=== PATIENT | female | born 1980 | race Two or more races ===

== ENCOUNTER 2024-08-12 09:48 | Outpatient (AMB) | payer BC, SELFPAY ==
--- NOTE | 2024-08-12 09:52 | A.SPINEOV_ITS ---
Vital Signs 08/12/24 10:03 Height 5 ft 7 in Weight 150 lb BMI 23.5 Intake Visit Reasons: lower back pain/second opinion Intake Note: Ms. White is here today for a Second opinion on her low back pain. 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 Allergies sulfamethoxazole [From Bactrim] Allergy (Severe, Verified 08/12/24 10:03) Hives trimethoprim [From Bactrim] Allergy (Severe, Verified 08/12/24 10:03) Hives Physical Exam Vital Signs: BMI result Body Mass Index 23.5 Assessment & Plan Assessment & Plan (1) Disc disease, degenerative, lumbar or lumbosacral: Code(s): M51.379 - Other intervertebral disc degeneration, lumbosacral region without mention of lumbar back pain or lower extremity pain Category: Medical Qualifiers: Disc-related pain type: discogenic back pain only Qualified Code(s): M51.370 - Other intervertebral disc degeneration, lumbosacral region with discogenic back pain only Plan Dear colleague On 08/12/2024, I saw for 2nd opinion Beata White with a chief complaint of severe low back pain HPI: This 44-year-old female underwent a successful right L5-S1 microdiskectomy on 06/19/2021 that the [facility] for lumbar radiculopathy. She developed new back pain in September of 2023. The pain is located in the lumbosacral area. Initially diclofenac helped to calm the symptoms down. Six months later she developed again an episode of severe low back pain and this time anti-inflammatory drugs were not helping anymore. Then the back pain did not disappear anymore despite any form of medical treatment such as anti-inflammatories or tramadol. She describes the pain as stabbing with any type of movement such as twisting bending or lifting. She denies radiating pain down her legs. She tried high doses of prednisone which gave her relief but after discontinuing that after 6 weeks the pain returned. She did not L5-S1 epidural steroid injection in April of 2024 which have improved her symptoms but the current back pain still is debilitating. 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 She denies numbness or weakness. She tried physical therapy twice but had to discontinue from the pain. She also did acupuncture. PMH: Hysterectomy 07/2022 Medications: Gabapentin, cetirizine, baclofen, Celebrex, hydroxyzine Allergies: Bactrim Social history: . One child. Employed. Nonsmoker. Physical Exam: Height 5'7 weight 150 lb. This pain on palpation over the lumbosacral area. Flexion-extension is restricted and painful. Straight leg raise produces pain in the lower spine. No motor or sensory deficits. Radiological Studies: MRI done at [facility] on 01/27/2024 shows a nearly collapsed L5-S1 disc space with Modic changes. The remainder of the lumbar spine is essentially normal. A CT scan of the lumbar spine of June 2024 shows again a severely collapsed L5-S1 disc space with irregularities of the endplates. Impression/Plan: This patient is suffering from intractable low back pain not responding to conservative measurements as described above. She is at her wits end and is looking for a permanent solution. I think she is an excellent candidate for an anterior lumbar interbody fusion. I described the procedure and expected outcome and she wants to proceed. She scheduled for an laparoscopic appendectomy next week and she already had preoperative clearance done at [facility] and PCP. We will obtain the records. She will have to see our approach surgeon Dr. Harris. She is tentatively scheduled for week of September. Thank you for allowing me to participate in your patients care. total time spent was 50 minutes in counseling ,coordination of plan, personal review of imaging, surgical decision making and subsequent plan Gee Lino MD, PhD Spine Fellowship Trained Neurosurgeon Director, [facility] Coding Level of Care Code New Pt Level 4 (57582) Diagnoses Degeneration of intervertebral disc of lumbosacral region with discogenic back pain M51.370 Disc-related pain type: discogenic back pain only
[2024-08-12 10:03] VITALS: BMI 23.5
--- OUTSIDE RECORDS SUMMARY | 2024-08-12 10:55 | XMS_ITS | Encounter Summary ---
Author Organization [facility] Address [address] [place] [address] Care Team Providers Care Labor And Employment Paralegal Name Role Phone Ron Escobar NP Primary Care Provider [phone]- [phone] Encounter Details Date Type Department Care Team (Late st Contact Info) Description 07/26/2024 [facility] [employer] Message Initial Department [address] [place] [id number] Mychart, Generic Provider [address] [place], [place] [id number] Questionnaire Submission Social History Tobacco Use Types Packs/Day Years Used Date Smoking Tobacco: Never Smokeless Tobacco: Never Comments:Social use Alcohol Use Standard Drinks/Week Comments Not Currently 0 (1 standard drink = 0.6 oz pure alcohol) rare use ~1 glass of wine/month Education Answer Date Recorded What is the highest level of school you have completed or the highest degree you have received? 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 file Not on file documented as of this encounter Plan of Treatment Upcoming Encounters Date Type Department Care Team (Latest Contact Info) Description 08/15/2024 10:00 AM EDT Appointment [facility] [address] [facility] 3rd [place] [address] 08/17/2024 8:15 AM EDT Hospital Encounter [facility] Operating Room [address] [place] [address] David Recinos MD [address] [place] [id number] 08/17/2024 8:15 AM EDT - 08/17/2024 10:55 AM EDT Surgery [facility] Operating Room [address] [place] [address] David Recinos MD [address] [place] [id number] ROBOTIC APPENDECTOMY [[id number] (CPT??)] Scheduled Procedures Name Priority Associated Diagnoses Date/Ti nj ROBOTIC APPENDECTOMY Mucocele of appendix 08/17/2024 8:15 AM EDT REPAIR UMBILICAL HERNIA, INCARCERATED Mucocele of appendix 08/17/2024 8:15 AM EDT documented as of this encounter Visit Diagnoses Not on filedocumented in this encounter Care Teams Labor And Employment Paralegal Relationship Specialty Start Date End Date Ron Escobar NP [address] [place] [address] PCP - General 11/24/23 documented as of this encounter
--- OUTSIDE RECORDS SUMMARY | 2024-08-12 10:55 | XMS_ITS | Encounter Summary ---
Author Organization [facility] Address [address] [place] [address] Care Team Providers Care Dynamite Reclaimer Name Role Phone Ron Escobar NP Primary Care Provider +1- [phone] Encounter Details Date Type Department Care Team (Late st Contact Info) Description 08/01/[address] [facility] [address] [place] [phone] Celina Eduardo, LUX Social History Tobacco Use Types Packs/Day Years Used Date Smoking Tobacco: Never Smokeless Tobacco: Never Comments:Social use Alcohol Use Standard Drinks/Week Comments Not Currently 0 (1 standard drink = 0.6 oz pure alcohol) rare use ~1 glass of wine/year Education Answer Date Recorded What is the [...] 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 file Not on file documented as of this encounter Miscellaneous Notes * Telephone Encounter - Celina Eduardo RN - 08/01/2024 10:00 AM EST PAC completed documented in this encounter Plan of Treatment Upcoming Encounters Date Type Department Care Team (Latest Contact Info) Description 08/15/2024 10:00 AM EDT Appointment [facility] [address] [facility] 3rd [place] [address] 08/17/2024 8:15 AM EDT Hospital Encounter [facility] Operating Room [address] [place] [address] David Recinos MD [address] [place] [address] 08/17/2024 8:15 AM EDT - 08/17/2024 10:55 AM EDT Surgery [facility] Operating Room [address] [place] [address] David Recinos MD [address] [place] [address] ROBOTIC APPENDECTOMY [[id number] (CPT??)] Scheduled Procedures Name Priority Associated Diagnoses Date/Ti me ROBOTIC APPENDECTOMY Mucocele of appendix 08/17/2024 8:15 AM EDT REPAIR UMBILICAL HERNIA, INCARCERATED Mucocele of appendix 08/17/2024 8:15 AM EDT documented as of this encounter Visit Diagnoses Not on filedocumented in this encounter Care Teams Dynamite Reclaimer Relationship Specialty Start Date End Date Ron Escobar NP [address] [place] [address] PCP - General 11/24/23 documented as of this encounter
--- OUTSIDE RECORDS SUMMARY | 2024-08-12 10:55 | XMS_ITS | Encounter Summary ---
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 file Not on file documented as of this encounter Plan of Treatment Upcoming Encounters Date Type Department Care Team (Latest Contact Info) Description 08/15/2024 10:00 AM EDT Appointment [facility] [address] [facility] 3rd [place] [address] 08/17/2024 8:15 AM EDT Hospital Encounter [facility] Operating Room [address] [place] [address] David Recinos MD [address] [place] [phone] 08/17/2024 8:15 AM EDT - 08/17/2024 10:55 AM EDT Surgery [facility] Operating Room [address] [place] [address] David Recinos MD [address] [place] [id number] ROBOTIC APPENDECTOMY [[id number] (CPT??)] Scheduled Procedures Name Priority Associated Diagnoses Date/Ti ky ROBOTIC APPENDECTOMY Mucocele of appendix 08/17/2024 8:15 AM EDT REPAIR UMBILICAL HERNIA, INCARCERATED Mucocele of appendix 08/17/2024 8:15 AM EDT documented as of this encounter Visit Diagnoses Not on filedocumented in this encounter Care Teams Director Equipment Relationship Specialty Start Date End Date Ron Escobar NP [address] [place] [address] PCP - General 11/24/23 documented as of this encounter
--- OUTSIDE RECORDS SUMMARY | 2024-08-12 10:55 | XMS_ITS | Encounter Summary ---
Author Organization [facility] Address [address] [place] [address] Care Team Providers Care Press Tender Smoke Signal Name Role Phone Ron Escobar NP Primary Care Provider [phone] Reason for Visit * Auth/Cert (Routine) Specialty Diagnoses / Procedures Referred By Urmila cuevas Referred To Contact Diagnoses Mucocele of appendix Preopeartive assessment - no prior colonoscopy, has large appendiceal mucocele, request assessment of the remainder of the colon to ensure no synchronous pathology Procedures KS COLONOSCOPY FLX DX W/COLLJ SPEC WHEN PFRMD Colonoscopy, Diagnostic, with Possible Moderate Sedation David Recinos MD [address] [place] [address] Phone: tel: fax: Gricel Pantoja MD [address] [place] [address] Phone: tel: fax: Referral ID Status Reason Start Date Expiration Date Visits Re quested Visits Authorized [id number] 07/29/2024 99 99 Encounter Details Date Type Department Care Team (Latest Contact Info) Description 08/02/2024 1:09 PM EST - 08/02/2024 4:09 PM EST Hospital Encounter [facility] Endoscopy [address] [place] [address] Gricel Pantoja MD [address], [place] [id number] Mucocele of appendix Discharge Disposition: Home or Self Care (01) Social History Tobacco Use Types Packs/Day Years [...] 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 Not on file Not on file documented as of this encounter Last Filed Vital Signs Vital Sign Reading Time Taken Comments Blood Pressure 114/66 08/02/2024 3:35 PM EST Pulse 73 08/02/2024 3:35 PM EST Temperature 36.8 ??C (98.2 ??F) 08/02/2024 3:04 PM ES T Respiratory Rate 16 08/02/2024 3:35 PM EST Oxygen Saturation 100% 08/02/2024 3:35 PM EST Inhaled Oxygen Concentration - - Weight 68 kg (150 lb) 08/02/2024 1:54 PM EST Height 170.2 cm (5' 7 ) 08/02/2024 1:54 PM EST Body Mass Index 23.49 08/02/2024 1:54 PM EST documented in this encounter Medications at Time of Discharge albuterol (PROAIR HFA,VENTOLIN HFA) 90 mcg inhaler ProAir HFA 90 mcg/actuation aerosol inhaler baclofen (LIORESAL) 10 mg tablet Take 10 mg by mouth daily as needed for muscle spasms. celecoxib (CeleBREX) 100 mg capsule Take 1 capsule by mouth 2 times a day. 02/07/2023 cetirizine (ZyrTEC) 10 mg tablet Take 1 tablet every day by oral route. 03/07/2024 cholecalciferol (VITAMIN D3) 1,250 mcg (50,000 unit) capsule Take 50,000 Units by mouth. 05/18/2023 diclofenac (VOLTAREN) 1% gel APPLY 2 GRAM TO THE AFFECTED AREA(S) BY TOPICAL ROUTE 4 TIMES PER DAY diphenhydrAMINE (BENADRYL) 25 mg capsule Take 25 mg by mouth nightly as needed. fluticasone propionate (Flovent HFA) 44 mcg inhaler Flovent HFA 44 mcg/actuation aerosol inhaler gabapentin (NEURONTIN) 400 mg capsule 400 mg. 02/27/2022 hydrOXYzine HCL (ATARAX) 25 mg tablet Take 25 mg by mouth. methylPREDNISolon e (MEDROL DOSEPACK) 4 mg tablet Take 4 mg by mouth. 10/15/2023 multivitamin capsule Take 1 capsule by mouth once a day. sodium sulfate-potassium sulfate-magnesium sulfate (SUPREP) solution 07/29/2024 documented as of this encounter H&P Notes * Gricel Pantoja MD - 08/02/2024 2:26 PM EST Endoscopy History and Physical Beata White is an 44 y.o. female who is here for a(n) colonoscopy at [facility]. The indication for the procedure is preop evaluation for appendix mucoceal. 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 07/20/2019 Sciatica Spinal stenosis Past Surgical History: Procedure Laterality Date BACK SURGERY Jun 2021 CERVIX SURGERY LEEP KS CYSTOURETHROSCOPY N/A 08/04/2022 Procedure: CYSTOURETHROSCOPY; Surgeon: Audrey Orozco MD; Location: [facility] OR; Service: Gynecology KS HYSTEROSCOPY,RMV FB N/A 08/04/2022 Procedure: SURGICAL HYSTEROSCOPY WITH REMOVAL OF IUD; Surgeon: Audrey Orozco MD; Location: [facility] OR; Service: Gynecology [place] LAPAROSCOPY TOT HYSTERECTOMY UTERUS >250 GRAM W TUBE/OVARY N/A 08/04/2022 Procedure: ROBOTIC TOTAL HYSTERECTOMY,LARGE UTERUS,WITH REMOVAL OF TUBES ,CONTAINED EXTRACTION, IUDREMOVAL; Surgeon: Audrey Orozco MD; Location: [facility] OR; Service: Gynecology Medications Prior to Admission Medication Sig Dispense Refill Last Dose/Taking albuterol (PROAIR HFA,VENTOLIN HFA) 90 mcg inhaler ProAir HFA 90 mcg/actuation aerosol inhaler Morethan a month baclofen (LIORESAL) 10 mg tablet Take 10 mg by mouth daily as needed for muscle spasms. 07/31/2024 celecoxib (CeleBREX) 100 mg capsule Take 1 capsule by mouth 2 times a day. 07/29/2024 cetirizine (ZyrTEC) 10 mg tablet Take 1 tablet every day by oral route. 08/01/2024 cholecalciferol (VITAMIN D3) 1,250 mcg (50,000 unit) capsule Take 50,000 Units by mouth. 07/29/2024 diclofenac (VOLTAREN) 1% gel APPLY 2 GRAM TO THE AFFECTED AREA(S) BY TOPICAL ROUTE 4 TIMES PER DAY More than a month diphenhydrAMINE (BENADRYL) 25 mg capsule Take 25 mg by mouth nightly as needed. More than a month fluticasone propionate (Flovent HFA) 44 mcg inhaler Flovent HFA 44 mcg/actuation aerosol inhaler More than a month gabapentin (NEURONTIN) 400 mg capsule 400 mg. 08/01/2024 hydrOXYzine HCL (ATARAX) 25 mg tablet Take 25 mg by mouth. Past Month methylPREDNISolone (MEDROL DOSEPACK) 4 mg tablet Take 4 mg by mouth. multivitamin capsule Take 1 capsule by mouth once a day. 07/29/2024 sodium sulfate-potassium sulfate-magnesium sulfate (SUPREP) solution 08/02/2024 Allergies Allergen Reactions Sulfamethoxazole-Trimethoprim Other (see comments) Objective BP 114/73 (BP Location: Left arm, Patient Position: Lying) Pulse 80 Temp 36.6 ??C (97.9 ??F) Resp 16 Ht 1.702 m (5' 7 ) Wt 68 kg (150 lb) LMP 07/28/2022 (Approximate) SpO2 99% BMI 23.49 kg/m?? Physical Exam Gen: Pleasant, Sitting in stretcher HEENT: normal faces, no scleral icterus Heart: Regular RR Lungs: bilateral chest rise Abd: soft nt nd Skin: non jaundice Neuro: A/0x3, non focal neuro exam Assessment & Plan The patient is appropriate for the scheduled procedure. The risks, benefits and alternatives were discussed with the patient. documented in this encounter Procedure Notes * Gricel Pantoja MD - 08/02/2024 2:22 PM ESTAssociated Order(s): COLONOSCOPY [facility] Gastroenterology Patient Name: Beata White Procedure Date: 08/02/2024 2:22 PM Date of : 1980 Admit Type: Outpatient Age: 44 Room: [place] [address] Gender: Female Note Status: Finalized Attending MD: Gricel Pantoja MD Procedure: Colonoscopy Indications: Abnormal CT of the GI tract Comorbidities Providers: Gricel Pantoja MD Referring MD: David Recinos (Referring MD) Requesting Provider: Medicines: Monitored Anesthesia Care Complications: No immediate complications. Estimated Blood Loss: Estimated blood loss: none. Procedure: Pre-Anesthesia Assessment: - Prior to the procedure, a History and Physical was performed, and patient medications, allergies and sensitivities were reviewed. The patient's tolerance of previous anesthesia was reviewed. - The risks and benefits of the procedure and the sedation options and risks were discussed with the patient. All questions were answered and informed consent was obtained. - Patient identification and proposed procedure were verified prior to the procedure by the physician. The procedure was verified in the pre-procedure area. - Pre-procedure physical examination revealed no contraindications to sedation. - ASA Grade Assessment: II - A patient with mild systemic disease. - After reviewing the risks and benefits, the patient was deemed in satisfactory condition to undergo the procedure. - Monitored anesthesia care under the supervision of an anesthesiologist was determined to be medically necessary for this procedure based on review of the patient's medical history, medications, and prior anesthesia history. After I obtained informed consent, the scope was passed under direct vision. Throughout the procedure, the patient's blood pressure, pulse, and oxygen saturations were monitored continuously. The was introduced through the anus and advanced to the terminal ileum. The colonoscopy was performed with ease. The patient tolerated the procedure well. The quality of the bowel preparation was excellent. The terminal ileum, ileocecal valve, appendiceal orifice, and rectum were photographed. Findings: The perianal and digital rectal examinations were normal. The terminal ileum appeared normal. A submucosal large tumor was found at the appendiceal orifice. No bleeding was present. This was biopsied with a cold forceps for histology. Non-bleeding internal hemorrhoids were found during retroflexion. The hemorrhoids were medium-sized and Grade II (internal hemorrhoids that prolapse but reduce spontaneously). The exam was otherwise without abnormality on direct and retroflexion views. Impression: - The examined portion of the ileum was normal. 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 Biopsied. - Non-bleeding internal hemorrhoids. - The examination was otherwise normal on direct and retroflexion views. Recommendation: - Discharge patient to home. - Await pathology results. - Follow up with Dr Recinos for surgical planning. - If questions or concerns please do not hesitate to call the [facility]. Attending Participation: I personally performed the entire procedure. Gricel Pantoja MD 08/02/2024 3:05:41 PM This report has been signed electronically. Number of Addenda: 0 Note Initiated On: 08/02/2024 2:22 PM documented in this encounter Plan of Treatment Upcoming Encounters Date Type Department Care Team (Latest Contact Info) Description 08/15/2024 10:00 AM EDT Appointment [facility] [address] [place] [address] [address] [place] [address] 08/17/2024 8:15 AM EDT Hospital Encounter [facility] Operating Room [address] [place] [id number] David Recinos MD [address] [place] [id number] 08/17/2024 8:15 AM EDT - 08/17/2024 10:55 AM EDT Surgery [facility] Operating Room [address] [place] [id number] David Recinos MD [address] [place] [id number] ROBOTIC APPENDECTOMY [59966 (CPT??)] Scheduled Procedures Name Priority Associated Diagnoses Date/Ti me ROBOTIC APPENDECTOMY Mucocele of appendix 08/17/2024 8:15 AM EDT REPAIR UMBILICAL HERNIA, INCARCERATED Mucocele of appendix 08/17/2024 8:15 AM EDT documented as of this encounter Procedures * Due to [place] state law, this organization might not be sharing negative HIV tests. Procedure Name Priority Date/Time Associated Diagnosis Comments TISSUE EXAM Routine 08/02/2024 2:50 PM EST Mucocele of appendix KS COLONOSCOPY FLX DX W/COLLJ SPEC WHEN PFRMD 08/02/2024 2:28 PM EST Mucocele of appendix COLONOSCOPY 08/02/2024 documented in this encounter Results * Due to [place] state law, this organization might not be sharing negative HIV tests. * Tissue Exam (08/02/2024 2:50 PM EST) Final Diagnosis Appendix Mass, Biopsy: - Superficial fragments of colonic mucosa, within normal limits, - No evidence of cystic structure, adenomatous change or mass. - Multiple levels were examined. [facility] MANUAL 08/05/2024 12:00 PM EST [facility] at 1200 EST Clinical History Pre-op diagnosis: Preopeartive assessment - no prior colonoscopy, has large appendiceal mucocele, request assessment of the remainder of the colon to ensure no synchronous pathology [facility] MANUAL 08/05/2024 12:00 PM EST [facility] Gross Description 1. Large Intestine, Appendix, APPENDIX MASS BIOPSY The specimen is received in formalin labeled appendix mass biopsy and consists of 0.6 x 0.3 x 0.1 cm of torres tissue fragments which are entirely submitted in cassette 1A. [facility] MANUAL 08/05/2024 12:00 PM EST [facility] Gross Description User Grossing complete by Louis Gray on 08/03/2024 12:02 PM [facility] MANUAL 08/05/2024 12:00 PM EST [facility] Embedded Images [facility] MANUAL 08/05/2024 12:00 PM EST [facility] Resulting Agency Case was signed out at [facility], Department of Pathology, [facility] CLIA [id number] [facility] MANUAL 08/05/2024 12:00 PM EST [facility] Report Header Surgical Pathology Report ? Case: [id number] ? Authorizing Provider: ??Gricel Pantoja MD ?Collected: ? 08/02/2024 1450 ? Ordering Location: ? [facility] ? Received: ?08/03/2024 1046 ? [facility] ? Endoscopy ? Pathologist: ? Matthew Meneses MD ? Specimen: ?Large Intestine, Appendix, APPENDIX MASS BIOPSY ? 08/05/2024 12:00 PM EST [facility] ProVation Case Yes [facility] 08/05/2024 12:00 PM EST [facility] SURGICAL CSN Component [id number] [facility] 08/05/2024 12:00 PM EST [facility] Tissue Appendix structure / Unknown 08/02/2024 2:50 PM EST 08/03/2024 10:46 AM EST Comment:Pre-op diagnosis: Preopeartive assessment - no prior colonoscopy, has large appendiceal mucocele, request assessment of the remainder of the colon to ensure no synchronous pathology Result [facility] Gricel Pantoja MD LAB PATHOLOGY/CYTOLOGY DARLENE JACOBS Final Result [facility] [address] [place] [address], [place] * COLONOSCOPY (08/02/2024) Narrative Procedure Note Gricel Pantoja MD - 08/02/2024 2:22 PM EST [facility] Gastroenterology Patient Name: Beata White Procedure Date: 08/02/2024 2:22 PM Date of : 1980 Admit Type: Outpatient Age: 44 Room: [place] [address] Gender: Female Note Status: Finalized Attending MD: Gricel Pantoja MD Procedure: Colonoscopy Indications: Abnormal CT of the GI tract Comorbidities Providers: Gricel Pantoja MD Referring MD: David Recinos (Referring MD) Requesting Provider: Medicines: Monitored Anesthesia Care Complications: No immediate complications. Estimated Blood Loss: Estimated blood loss: none. Procedure: Pre-Anesthesia Assessment: - Prior to the procedure, a History and Physicalwas performed, and patient medications, allergies and sensitivities were reviewed. The patient'stolerance of previous anesthesia was reviewed. - The risks and benefits of the procedure and the sedation options and risks were discussed with the patient. All questions were answered and informed consent was obtained. - Patient identification and proposed procedurewere verified prior to the procedure by the physician.The procedure was verified in the pre-procedure area. - Pre-procedure physical examination revealed no contraindications to sedation. - ASA Grade Assessment: II - A patient with mild systemic disease. - After reviewing the risks and benefits, thepatient was deemed in satisfactory condition to undergo the procedure. - Monitored anesthesia care under the supervisionof an anesthesiologist was determined to be medically necessary for this procedure based on review of the patient's medical history, medications, and prior anesthesia history. After I obtained informed consent, the scope was passed under direct vision. Throughout theprocedure, the patient's blood pressure, pulse, and oxygen saturations were monitored continuously. The was introduced through the anus and advanced to the terminal ileum. The colonoscopy was performed with ease. The patient tolerated the procedure well. The quality of the bowel preparation was excellent. The terminal ileum, ileocecal valve, appendicealorifice, and rectum were photographed. Findings: The perianal and digital rectal examinations were normal. The terminal ileum appeared normal. A submucosal large tumor was found at the appendiceal orifice. No bleeding was present. This was biopsied with a cold forceps for histology. Non-bleeding internal hemorrhoids were found during retroflexion. The hemorrhoids were medium-sized and Grade II (internal hemorrhoids that prolapse but reduce spontaneously). The exam was otherwise without abnormality on direct and retroflexion views. Impression: - The examined portion of the ileum was normal. - Large submucosal tumor at the appendicealorifice. Biopsied. - Non-bleeding internal hemorrhoids. - The examination was otherwise normal on directand retroflexion views. Recommendation: - Discharge patient to home. - Await pathology results. - Follow up with Dr Recinos for surgicalplanning. - If questions or concerns please do not hesitateto call the [facility]. Attending Participation: I personally performed the entire procedure. Gricel Pantoja MD 08/02/2024 3:05:41 PM This report has been signed electronically. Number of Addenda: 0 Note Initiated On: 08/02/2024 2:22 PM Gricel Pantoja MD PROVATION PROCEDURES Final Result documented in this encounter Visit Diagnoses Diagnosis Mucocele of appendix Other and unspecified diseases of appendix Mucocele of appendix Other and unspecified diseases of appendix documented in this encounter Administered Medications Inactive Administered Medications - up to 3 most recent administrations Medication Order MAR Action Action Date Dose Rate Site sodium chloride 0.9% flush 3-10 mL 3-10 mL, intravenous, PRN Flush, line care, Flush peripheral line with a minimum of 3 mL, before and after use or every 12 hours., Starting on Thu08/02/24 at 1355, Until Thu08/02/24 at 1810, Preprocedure (GI) documented in this encounter Active and Recently Administered Medications Times are shown in EST. PRN Medication Order 07/31/2024 08/01/2024 08/02/2024 sodium chloride 0.9% flush 3-10 mL 3-10 mL, intravenous, PRN Flush, line care, Flush peripheral line with a minimum of 3 mL, before and after use or every 12 hours., Starting on Thu08/02/24 at 1355, Until Thu08/02/24 at 1810, Preprocedure (GI) documented in this encounter Care Teams Press Tender Smoke Signal Relationship Specialty Start Date End Date Ron Escobar NP [address] [facility] [place] [id number] PCP - General 11/24/23 documented as of this encounter
--- OUTSIDE RECORDS SUMMARY | 2024-08-12 10:55 | XMS_ITS | Encounter Summary ---
Author Organization [facility] Address [address] [place] [address] Care Team Providers Care Building Construction Teacher Name Role Phone Ron Escobar NP Primary Care Provider [phone] Reason for Visit * Auth/Cert (Routine) Specialty Diagnoses / Procedures Referred By Urmila cuevas Referred To Contact Diagnoses Mucocele of appendix Preopeartive assessment - no prior colonoscopy, has large appendiceal mucocele, request assessment of the remainder of the colon to ensure no synchronous pathology Procedures NV COLONOSCOPY FLX DX W/COLLJ SPEC WHEN PFRMD Colonoscopy, Diagnostic, with Possible Moderate Sedation David Recinos MD [address] [place] [address] Phone: tel: fax: Gricel Pantoja MD [address] [place] [address] Phone: tel: fax: Referral ID Status Reason Start Date Expiration Date Visits Re quested Visits Authorized [id number] 07/29/2024 99 99 Encounter Details Date Type Department Care Team (Late st Contact Info) Description 08/02/2024 2:27 PM EST Anesthesia Event [facility] [address] [place] [address] Michel Birmingham MD [address] [place] [address] Anesthesia Record Procedure Summary Procedure Name Responsible Anesthesiologist Anesthesia Start Time Anesthesia Stop Time Colonoscopy, Diagnostic, with Possible Moderate Sedation (Anus) Michel Birmingham MD 08/02/24 1427 08/02/24 1503 Events Date Time Event Comment 08/02/2024 1403 1427 An Start 1427 An Start Data 1428 In Room 1442 An Induction The patient was reevaluated immediately before induction of anesthesia. 1442 Anesthesia Ready 1443 Proc Start 1458 Proc Fin 1500 Out of Room 1500 an stop data 1503 Handoff to RN I completed my handoff to the receiving nurse during which we: 1. Identified the patient 2. Identified the responsible provider 3. Reviewed the pertinent medical history 4. Discussed the surgical course 5. Reviewed intra-op anesthesia management and issues during anesthesia 6. Set expectations for post-procedure period 7. Allowed opportunity for questions and acknowledgement of understanding. 1503 An Stop Meds Name Total propofol (DIPRIVAN) 20ML vial 400 mg sodium chloride 0.9% (NS) infusion 0 mL * Agents Name O2 Flow (L/min) * Blood No blood administrations on file. 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 Not on file Not on file documented as of this encounter Last Filed Vital Signs Vital Sign Reading Time Taken Comments Blood Pressure 87/58 08/02/2024 2:57 PM EST Pulse 79 08/02/2024 3:00 PM EST Temperature - - Respiratory Rate 20 08/02/2024 3:00 PM EST Oxygen Saturation 100% 08/02/2024 3:00 PM EST Inhaled Oxygen Concentration - - Weight - - Height - - Body Mass Index - - documented in this encounter OR Notes * Anesthesia Postprocedure Evaluation - Michel Birmingham MD - 08/02/2024 3:34 PM EST Anesthesia Post-procedure Evaluation Patient: Beata White : 1980 Date of Procedure: 08/02/2024 Procedure Summary Date: 08/02/24 Room / Location: [facility] GI [facility] 05 / [facility] Endo Anesthesia Start: 1427 Anesthesia Stop: 1503 Procedure: Colonoscopy, Diagnostic, with Possible Moderate Sedation (Anus) Diagnosis: Mucocele of appendix (Preopeartive assessment - no prior colonoscopy, has large appendiceal mucocele, request assessmentof the remainder of the colon to ensure no synchronous pathology) Surgeons: Gricel Pantoja MD Responsible Provider: Michel Birmingham MD Anesthesia Type: MAC ASA Status: 2 Anesthesia Type: MAC Last vitals Vitals Value Taken Time BP 108/70 08/02/24 1519 Temp 36.8 ??C (98.2 ??F) 08/02/24 1504 Pulse 87 08/02/24 1519 Resp 16 08/02/24 1519 SpO2 100 % 08/02/24 1519 Anesthesia Post Evaluation Patient location during evaluation: PACU Patient participation: complete - patient participated Level of consciousness: awake Pain management: adequate Anesthetic complications: no Nausea and Vomiting: no Cardiovascular status: acceptable Respiratory status: acceptable Hydration status: acceptable No notable events documented. Michel Birmingham MD Date: 08/02/2024 Time: 3:34 PM * Anesthesia Preprocedure Evaluation - Michel Birmingham MD - 08/02/2024 12:07 PM EST Anesthesia Pre-procedure Evaluation Patient: Beata White : 1980 Date of Procedure: 08/02/2024 Preoperative Diagnosis: Pre-op Diagnosis * Mucocele of appendix [K38.8] Colonoscopy, Diagnostic, with Possible Moderate Sedation: 23321 (CPT??) Surgeon(s): Gricel Pantoja MD Past Medical / Past Surgical: Past Medical History: Diagnosis Date Anemia Asthma mild Bilateral piriformis syndrome 02/18/2022 Chronic low back pain 10/06/2016 Chronic pain disorder DDD (degenerative disc disease), lumbar 02/18/2022 Depressive disorder 06/28/2019 Intramural and submucous leiomyoma of uterus 04/17/2021 Lumbar herniated disc Lumbar spondylosis 07/09/2019 Overweight 06/28/2019 PONV (postoperative nausea and vomiting) Positive reaction to tuberculin skin test 07/20/2019 Sciatica Spinal stenosis Past Surgical History: Procedure Laterality Date BACK SURGERY Jun 2021 CERVIX SURGERY LEEP NV CYSTOURETHROSCOPY N/A 08/04/2022 Procedure: CYSTOURETHROSCOPY; Surgeon: Audrey Orozco MD; Location: [facility]; Service: Gynecology NV HYSTEROSCOPY,RMV FB N/A 08/04/2022 Procedure: SURGICAL HYSTEROSCOPY WITH REMOVAL OF IUD; Surgeon: Audrey Orozco MD; Location: [facility]; Service: Gynecology NV LAPAROSCOPY TOT HYSTERECTOMY UTERUS >250 GRAM W TUBE/OVARY N/A 08/04/2022 Procedure: ROBOTIC TOTAL HYSTERECTOMY,LARGE UTERUS,WITH REMOVAL OF TUBES ,CONTAINED EXTRACTION, IUDREMOVAL; Surgeon: Audrey Orozco MD; Location: [facility]; Service: Gynecology Social / Family Histories: Vaping Questions Responses Vaping Use Never User Social History Tobacco Use Smoking status: Never Smokeless tobacco: Never Tobacco comments: Social use Substance Use Topics Alcohol use: Not Currently Comment: rare use ~1 glass of wine/year Social History Substance and Sexual Activity Drug Use Never Family History Adopted: Yes Problem Relation Age of Onset Breast cancer Neg Hx OB History 2 Para 1 Term 1 AB 1 Living 1 SAB IAB 1 Ectopic Multiple Live Births 1 Obstetric Comments S/p hysterectomy for uterine fibroids Pap 2020 negative cotest Prior to Admission medications Medication Sig Start Date End Date Taking? Authorizing Provider albuterol (PROAIR HFA,VENTOLIN HFA) 90 mcg inhaler ProAir HFA 90 mcg/actuation aerosol inhaler Unknown Provider, docusate sodium (COLACE) 100 mg capsule Take 1 capsule (100 mg total) by mouth 2 times a day. 07/17/22 08/16/22 Audrey Orozco MD ergocalciferol (VITAMIN D2) 1,250 mcg (50,000 unit) capsule 11/13/20 Unknown Provider, fluconazole (DIFLUCAN) 150 mg tablet 12/03/21 Unknown Provider, fluticasone propionate (FLONASE) 50 mcg/actuation nasal spray fluticasone propionate 50 mcg/actuation nasal spray,suspension Unknown Provider, fluticasone propionate (Flovent HFA) 44 mcg inhaler Flovent HFA 44 mcg/actuation aerosol inhaler Unknown Provider, gabapentin (NEURONTIN) 100 mg capsule 02/27/22 Unknown Provider, ibuprofen (MOTRIN) 600 mg tablet Take 1 tablet (600 mg total) by mouth every 6 hours as needed for pain (pain). 07/17/22 08/16/22 Audrey Orozco MD montelukast (SINGULAIR) 10 mg tablet 08/02/20 Unknown Provider, omeprazole OTC (PriLOSEC OTC) 20 mg EC tablet Take 1 tablet (20 mg total) by mouth once a day. Take1 tablet by mouth the evening prior to the procedure and then one tablet by mouth the morning of the procedure then daily thereafter. 03/05/21 SARAH Toribio ondansetron (ZOFRAN) 4 mg tablet Take 1 tablet (4 mg total) by mouth every 6 hours as needed for nausea for up to 8 doses. 04/17/21 Yeison Brennan MD polyethylene glycol 3350 (MIRALAX) 17 gram packet Take 1 packet (17 g total) by mouth daily as needed (If no bowel movement in 2 days). Mix powder in 4 to 8 oz of water, juice, coffee, or tea daily as needed for constipation. 04/17/21 Yeison Brennan MD Allergies: Sulfamethoxazole-trimethoprim Vitals / Weight: Last menstrual period 07/28/2022, not currently . Recent Labs: Recent EKG: Patient's Hospital Problems: Patient Active Problem List Diagnosis Intramural and submucous leiomyoma of uterus Asthma Bilateral piriformis syndrome Backache Chronic low back pain Low back pain potentially associated with spinal stenosis DDD (degenerative disc disease), lumbar Decreased hearing Depressive disorder Facet arthritis of lumbar region Arthritis of left sacroiliac joint (HCC) Inflammation of sacroiliac joint (HCC) Lumbar spondylosis Lumbosacral spondylosis without myelopathy Myofascial pain Overweight Positive reaction to tuberculin skin test Recurrent urinary tract infection Sciatica Skin sensation disturbance Verruca vulgaris Uterine leiomyoma Anesthesia Evaluation Patient summary reviewed. Anesthesia History: History of anesthetic complications motion sickness PONV Pulmonary (+) asthma ROS comment: flovent and proair prn last used May. No recent hospitalizations or intubations Cardiovascular Exercise tolerance: good Neuro/Psych Comments: Chronic back pain/sciatia on gabapentin GI/Hepatic/Renal Endo/Other (+) , other hematologic disorders, anemia Infectious Disease Physical Exam Airway Mallampati: II TM distance: >3 FB Neck ROM: full Mouth Opening: good Cardiovascular Rhythm: regular Dental - normal exam Pulmonary Breath sounds clear to auscultation Abdominal Anesthesia Plan ASA 2 Anesthesia Type: MAC 44yo F with appendiceal mucocele presenting for colonoscopy. PMH: asthma (infrequent albuterol use), spinal stenosis No recent URI NPO Pre-Anesthesia Review by Attending Anesthesiologist: Michel Birmingham MD Date: 08/02/2024 Time: 12:08 PM I have interviewed and examined the patient and conducted a pre-anesthesia evaluation that includedreview of the complete medical history, notation of a relevant patient problem list and review of all pertinent preoperative studies, laboratory testing and specialty consultations. An assessment of anesthetic risk including ASA classification and an anesthetic plan have been documented. Original Author: Michel Birmingham MD PSE Chart Review 07/28/22 documented in this encounter Plan of Treatment Upcoming Encounters Date Type Department Care Team (Latest Contact Info) Description 08/15/2024 10:00 AM EDT Appointment [facility] [address] [facility] [address] [place] [address] 08/17/2024 8:15 AM EDT Hospital Encounter [facility] Operating Room [address] [place] [address] David Recinos MD [address] [place] [phone] 08/17/2024 8:15 AM EDT - 08/17/2024 10:55 AM EDT Surgery [facility] Operating Room [address] [place] [address] David Recinos MD [address] [place] [address] ROBOTIC APPENDECTOMY [31547 (CPT??)] Scheduled Procedures Name Priority Associated Diagnoses Date/Ti ks ROBOTIC APPENDECTOMY Mucocele of appendix 08/17/2024 8:15 AM EDT REPAIR UMBILICAL HERNIA, INCARCERATED Mucocele of appendix 08/17/2024 8:15 AM EDT documented as of this encounter Visit Diagnoses Not on filedocumented in this encounter Administered Medications Inactive Administered Medications - up to 3 most recent administrations Medication Order MAR Action Action Date Dose Rate Site propofoL (DIPRIVAN) injection intravenous, As needed, Starting on 08/02/24 at 1442, Until 08/02/24 at 1503, Anesthesia Intra-op Given 08/02/2024 2:53 PM EST 100 mg Given 08/02/2024 2:50 PM EST 100 mg Given 08/02/2024 2:46 PM EST 100 mg sodium chloride 0.9% (NS) premix infusion intravenous, Continuous PRN, Starting on 08/02/24 at 1440, Until 08/02/24 at 1503, Anesthesia Intra-op New Bag/Syringe 08/02/2024 2:40 PM EST documented in this encounter Care Teams Building Construction Teacher Relationship Specialty Start Date End Date Ron Escobar NP [address] [facility] [place] [id number] PCP - General 11/24/23 documented as of this encounter
--- OUTSIDE RECORDS SUMMARY | 2024-08-12 10:55 | XMS_ITS | Encounter Summary ---
Author Organization [facility] Address [address] [place] [address] Care Team Providers Care Steaming Cabinet Tender Name Role Phone Catrina Phan NP Primary Care Provider [phone]- [phone] Reason for Visit * Reason Comments New Patient * Surgical (Routine) - Authorized Specialty Diagnoses / Procedures Referred By Urmila cuevas Referred To Contact Surgical Oncology / General Surgery Diagnoses Mucocele of appendix Audrey Orozco MD [address] [place] [address] Phone: tel: fax: David Recinos MD [address] [place] [address] fax: Referral ID Status Reason Start Date Expiration Date Visits Requested Visits Authorized [id number] Authorized Specialty Services Required 07/25/2024 07/25/2025 6 6 Encounter Details Date Type Department Care Team (Late st Contact Info) Description 07/26/2024 12:15 PM EST Office Visit [facility] [address] [place] [address] Display Mechanic: David Perry MD [address] [place] [address] Mucocele of appendix (Primary Dx) Social History Tobacco Use Types Packs/Day Years Used Date Smoking Tobacco: Never Smokeless Tobacco: Never Tobacco Cessation:Counseling Given: Not Answered Comments:Social use Alcohol Use Standard Drinks/Week Comments [...] 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 on file Not on file documented as of this encounter Last Filed Vital Signs Vital Sign Reading Time Taken Comments Blood Pressure 118/74 07/26/2024 12:20 PM EST Pulse 87 07/26/2024 12:20 PM EST Temperature 36.8 ??C (98.2 ??F) 07/26/2024 12:[address] Respiratory Rate - - Oxygen Saturation 98% 07/26/2024 12:20 PM EST Inhaled Oxygen Concentration - - Weight 69.4 kg (153 lb) 07/26/2024 12:20 PM EST Height 172 cm (5' 7.72 ) 07/26/2024 12:20 PM EST Body Mass Index 23.46 07/26/2024 12:20 PM EST documented in this encounter Progress Notes * David Recinos MD - 07/26/2024 1:09 PM EST Images from the original note were not included. Surgical Oncology Consult History and Physical Exam: Beata White : 1980 CSN: [id number] Referring Provider: AUDREY OROZCO Primary Care Provider: CATRINA PHAN NP Reason for Consultation: Appendiceal mucocele HPI: I the pleasure of meeting with Beata today regarding findings from her recent CT scan obtained for assessment of abdominal and back pain. On a CT from July 12, 2024 she is noted to have a roughly 2.9 x 10 cm cystic structure emanating from the base of the cecum concerning for a mucocele. She also has a small hernia in the region of her umbilicus with a possible collection of mucin at its tip. Beata does note ongoing right lower quadrant discomfort and pressure. She has not had a colonoscopy in the past. She did have a hysterectomy for extensive fibroid disease. She presents today for surgical evaluation. Past Medical History: Diagnosis Date Anemia Asthma Bilateral piriformis syndrome 02/18/2022 Chronic low back pain 10/06/2016 DDD (degenerative disc disease), lumbar 02/18/2022 Depressive disorder 06/28/2019 Intramural and submucous leiomyoma of uterus 04/17/2021 Lumbar herniated disc Lumbar spondylosis 07/09/2019 Overweight 06/28/2019 PONV (postoperative nausea and vomiting) Positive reaction to tuberculin skin test 07/20/2019 Sciatica Spinal stenosis Past Surgical History: Procedure Laterality Date BACK SURGERY Jun 2021 CERVIX SURGERY LEEP NJ CYSTOURETHROSCOPY N/A 08/04/2022 Procedure: CYSTOURETHROSCOPY; Surgeon: Audrey Orozco MD; Location: [facility]; Service: Gynecology NJ HYSTEROSCOPY,RMV FB N/A 08/04/2022 Procedure: SURGICAL HYSTEROSCOPY WITH REMOVAL OF IUD; Surgeon: Audrey Orozco MD; Location: [facility]; Service: Gynecology [place] LAPAROSCOPY TOT HYSTERECTOMY UTERUS >250 GRAM W TUBE/OVARY N/A 08/04/2022 Procedure: ROBOTIC TOTAL HYSTERECTOMY,LARGE UTERUS,WITH REMOVAL OF TUBES ,CONTAINED EXTRACTION, IUDREMOVAL; Surgeon: Audrey Orozco MD; Location: [facility]; Service: Gynecology Current Outpatient Medications: albuterol (PROAIR HFA,VENTOLIN HFA) 90 mcg inhaler, ProAir HFA 90 mcg/actuation aerosol inhaler, Disp: , Rfl: baclofen (LIORESAL) 10 mg tablet, Take 10 mg by mouth daily as needed for muscle spasms., Disp: , Rfl: celecoxib (CeleBREX) 100 mg capsule, Take 1 capsule by mouth 2 times a day., Disp: , Rfl: cholecalciferol (VITAMIN D3) 1,250 mcg (50,000 unit) capsule, Take 50,000 Units by mouth., Disp: , Rfl: diclofenac (VOLTAREN) 1% gel, APPLY 2 GRAM TO THE AFFECTED AREA(S) BY TOPICAL ROUTE 4 TIMES PER DAY, Disp: , Rfl: diphenhydrAMINE (BENADRYL) 25 mg capsule, Take 25 mg by mouth nightly as needed., Disp: , Rfl: fluticasone propionate (Flovent HFA) 44 mcg inhaler, Flovent HFA 44 mcg/actuation aerosol inhaler, Disp: , Rfl: gabapentin (NEURONTIN) 400 mg capsule, 400 mg., Disp: , Rfl: hydrOXYzine HCL (ATARAX) 25 mg tablet, Take 25 mg by mouth., Disp: , Rfl: methylPREDNISolone (MEDROL DOSEPACK) 4 mg tablet, Take 4 mg by mouth., Disp: , Rfl: multivitamin capsule, Take 1 capsule by mouth once a day., Disp: , Rfl: Allergies Allergen Reactions Sulfamethoxazole-Trimethoprim Other (see comments) Social History[1] Family History Adopted: Yes Problem Relation Age of Onset Breast cancer Neg Hx Review of Systems - A complete 10 point ROS was performed and is positive per the HPI, all other systems reviewed and negative. Physical Exam: Vitals: 07/26/24 1220 BP: 118/74 Pulse: 87 Temp: 36.8 ??C (98.2 ??F) SpO2: 98% Physical Exam Physical Exam Constitutional: The patient is oriented to person, place, and time. The patient appears well-developed and well-nourished. Head: Normocephalic and atraumatic. Eyes: Conjunctivae and EOM are normal. No scleral icterus. Neck: No JVD present. Cardiovascular: Normal rate. Pulmonary/Chest: Effort normal and no respiratory distress. Abdominal: Soft. Non-distended Musculoskeletal: Normal range of motion. The patient exhibits no edema. Neurological: The patient is alert and oriented to person, place, and time. Skin: Skin is warm and dry. There is no rash or jaundice. Psychiatric: The patient has a normal mood and affect. Labs: Personally reviewed Latest Ref Rng & Units 07/15/2022 11:23 AM Basic Metabolic Panel Sodium 135 - 145 mmol/L 138 Potassium 3.5 - 5.3 mmol/L 3.9 Chloride 97 - 110 mmol/L 102 Carbon Dioxide 24 - 32 mmol/L 29 Glucose 70 - 99 mg/dL 90 Creatinine 0.50 - 1.20 mg/dL 0.77 Calcium 8.7 - 10.7 mg/dL 9.4 EGFR >=90 mL/min/1.73m2 >90 No data to display Latest Ref Rng & Units 07/15/2022 11:23 AM CBC WBC 4.3 - 10.8 10*3/uL 8.1 Hgb 11.7 - 15.5 g/dL 13.6 Hct 35.0 - 46.0 % 41.2 MCV 80.0 - 100.0 fL 88.1 Plts 140 - 440 10*3/uL 272 Pathology: None available for review. Imaging: Personally reviewed CT A/P from 07/12/24 as noted above. Assessment/Plan: In summary, Beata is a 44-year-old female who presents for surgical evaluation ofan appendiceal mucocele. She and I discussed the nature of the diagnosis and my recommendation to proceed with appendectomy. I think, given the size of the lesion, that this would be best approached with a robotic assisted laparoscopic effort. During that operation I would also reduce the contents of her periumbilical hernia to assess for the presence of extra appendiceal mucin and plan a primarysuture and hernia repair. We discussed the possible pathologies including both benign, premalignant, and overtly malignant processes within the appendix. I stated that appendectomy is the standard pro cedure for diagnosis of this problem and that a high-grade process may necessitate further treatment including completion right colectomy for node staging. We did touch on the possibility of extra appendiceal findings that would necessitate further cytoreductive surgery and/or heated intraperitoneal chemotherapy administration if found. I recommended a lab assessment with tumor markers today. Additionally, I advised that she undergo a colonoscopy preoperatively to ensure there is no additional synchronous pathology within the colon as well as to potentially obtain samples from any lesions visible at the appendiceal orifice. We will look for a day for surgery in the near term once her colonoscopy has been completed. Risks, benefits, and alternatives to surgery including bleeding, infection, margin positive resection, bowel leak, ureteral injury, hernia recurrence, need to convert to an open procedure, and need for repeat procedures were discussed. Apprised of the risks she wishes to proceed as outlined above. I spent a total of 60 minutes on the date of encounter, which included: ?? Preparing to see the patient (e.g., review of test results) ?? Obtaining and/or reviewing separately obtained history ?? Counseling and educating the patient/family/caregiver ?? Referring and communicating with other healthcare professionals, when not separately reported ?? Documenting clinical information in the health record ?? 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 Tobacco Use Smoking status: Never Smokeless tobacco: Never Tobacco comments: Social use Vaping Use Vaping status: Never Used Substance and Sexual Activity Alcohol use: Not Currently Comment: rare use ~1 glass of wine/month Drug use: Never Sexual activity: Defer Partners: Male Other Topics Concern Not on file Social History Narrative 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, 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 Plan of Treatment Upcoming Encounters Date Type Department Care Team (Latest Contact Info) Description 08/15/2024 10:00 AM EDT Appointment [facility] [address] [place] [address] [address] [place] [address] 08/17/2024 8:15 AM EDT Hospital Encounter [facility] Operating Room [address] [place] [address] David Recinos MD [address] [place] [address] 08/17/2024 8:15 AM EDT - 08/17/2024 10:55 AM EDT Surgery [facility] Operating Room [address] [place] [address] David Recinos MD [address] [place] [address] ROBOTIC APPENDECTOMY [33723 (CPT??)] Scheduled Procedures Name Priority Associated Diagnoses Date/Ti ny ROBOTIC APPENDECTOMY Mucocele of appendix 08/17/2024 8:15 AM EDT REPAIR UMBILICAL HERNIA, INCARCERATED Mucocele of appendix 08/17/2024 8:15 AM EDT documented as of this encounter Results * Due to [place] state law, this organization might not be sharing negative HIV tests. * Phosphorus (07/26/2024 1:00 PM EST) Phosphorus 3.3 2.5 - 4.5 mg/dL 07/26/2024 2:24 PM EST [facility] Blood Structure of peripheral vein / Unknown Venipuncture / Unknown 07/26/2024 1:00 PM EST 07/26/2024 1:14 PM EST David Recinos MD LAB BLOOD ORDERABLES Final Result Performing Organization Address City/[facility]/ZIP Co de Phone Number [facility] [employer] [facility] [address] [place] [address], * Magnesium (07/26/2024 1:00 PM EST) MG 2.0 1.6 - 2.4 mg/dL 07/26/2024 2:24 PM EST [facility] Blood Structure of peripheral vein / Unknown Venipuncture / Unknown 07/26/2024 1:00 PM EST 07/26/2024 1:14 PM EST David Recinos MD LAB BLOOD ORDERABLES Final Result Performing Organization Address [facility] Co de Phone Number [facility] [employer] [facility] [address] [place] [address], * CA 19-9 (07/26/2024 1:00 PM EST) CA 19-9 15 <34 U/mL 07/28/2024 9:42 AM EST [employer] [facility] Comment: This test was performed using the Siemens chemiluminescent method. Values obtained from different assay methods cannot be used interchangeably. CA 19-9 levels, regardless of value, should not be interpreted as absolute evidence of the presence or absence of disease. Blood Structure of peripheral vein / Unknown Venipuncture / Unknown 07/26/2024 1:00 PM EST 07/26/2024 1:30 PM EST Luís AYON - 07/28/2024 9:42 AM EST [facility] Received Date:[id number] us David Recinos MD LAB BLOOD ORDERABLES Final Result Performing Organization Address City/[facility]/ZIP Co de Phone Number DEVONTE AYON [address], [address] [place] [address], [place] [phone] [employer] [address], [place] [address], [place] [phone] * CA 125 (07/26/2024 1:00 PM EST) Pathologist [facility] CA 125 10 <35 U/mL 07/27/2024 8:46 AM EST [employer] [facility] Comment: This test was performed using the Siemens Chemiluminescent method. Values obtained from different assay methods cannot be used interchangeably. CA 125 levels, regardless of value, should not be interpreted as absolute evidence of the presence or absence of disease. Blood Structure of peripheral vein / Unknown Venipuncture / Unknown 07/26/2024 1:00 PM EST 07/26/2024 1:29 PM EST [facility]ís [employer] NANY - 07/27/2024 8:46 AM EST [facility] Received Date:[id number] us David Recinos MD LAB BLOOD ORDERABLES Final Result Performing Organization Address [facility] Co de Phone Number DEVONTE AYON [address], [place] [address], [place] [phone] [employer] [facility] [address], [place] [address], [place] [phone] * CEA (07/26/2024 1:00 PM EST) Pathologist [facility] CEA <0.6 <=3.7 ng/mL 07/26/2024 2:25 PM EST [facility] Comment: Smokers Reference Range: ?? <5.5 ng/mL This test was performed using Arian electrochemiluminescence immunoassay method. Values obtained by different assay methods cannot be used interchangeably. Blood Structure of peripheral vein / Unknown Venipuncture / Unknown 07/26/2024 1:00 PM EST 07/26/2024 1:14 PM EST David Recinos MD LAB BLOOD ORDERABLES Final Result [facility] [address] [place] [address], * CBC Auto Differential (07/26/2024 1:00 PM EST) WBC 7.1 3.8 - 10.8 10*3/uL 07/26/2024 1:18 PM EST [facility] RBC 4.19 3.80 - 5.10 10*6/uL 07/26/2024 1:18 PM EST [facility] Hemoglobin 12.6 11.7 - 15.5 g/dL 07/26/2024 1:18 PM EST [facility] Hematocrit 38.2 35.0 - 45.0 % 07/26/2024 1:18 PM EST [facility] MCV 91.2 80.0 - 100.0 fL 07/26/2024 1:18 PM EST [facility] MCH 30.1 27.0 - 33.0 pg 07/26/2024 1:18 PM EST [facility] MCHC 33.0 32.0 - 36.0 g/dL 07/26/2024 1:18 PM EST [facility] RDW 12.4 11.0 - 15.0 % 07/26/2024 1:18 PM EST [facility] Platelets 245 140 - 400 10*3/uL 07/26/2024 1:18 PM EST [facility] MPV 11.3 7.5 - 12.5 fL 07/26/2024 1:18 PM EST [facility] Neutrophil % 65.2 % 07/26/2024 1:18 PM EST [facility] Immature Grans % 0.3 0.0 - 0.9 % 07/26/2024 1:18 PM EST [facility] Lymphocyte % 25.8 % 07/26/2024 1:18 PM EST [facility] Monocyte % 6.7 % 07/26/2024 1:18 PM EST [facility] Eosinophil % 1.3 % 07/26/2024 1:18 PM EST [facility] Basophil % 0.7 % 07/26/2024 1:18 PM EST [facility] Neutrophil # 4.66 1.50 - 7.80 10*3/uL 07/26/2024 1:18 PM EST [facility] Immature Grans # <0.03 <=0.03 10*3/uL 07/26/2024 1:18 PM EST [facility] Lymphocyte # 1.80 0.85 - 3.90 10*3/uL 07/26/2024 1:18 PM EST [facility] Monocyte # 0.50 0.20 - 0.95 10*3/uL 07/26/2024 1:18 PM EST [facility] Eosinophil # 0.10 0.02 - 0.50 10*3/uL 07/26/2024 1:18 PM EST [facility] Basophil # 0.10 0.00 - 0.20 10*3/uL 07/26/2024 1:18 PM EST [facility] nRBC % 0.0 /100 WBCs 07/26/2024 1:18 PM EST [facility] nRBC # <0.01 <0.01 10*3/uL 07/26/2024 1:18 PM EST [facility] Total Neutrophil #, Preliminary 4.66 1.50 - 7.80 10*3/uL 07/26/2024 1:18 PM EST [facility] [employer] Blood Structure of peripheral vein / Unknown Venipuncture / Unknown 07/26/2024 1:00 PM EST 07/26/2024 1:14 PM EST us David Recinos MD LAB BLOOD ORDERABLES Final Result [facility] [employer] [address] [place] [address], * Comprehensive metabolic panel (07/26/2024 1:00 PM EST) NA 140 135 - 145 mmol/L 07/26/2024 2:24 PM EST [facility] K 4.2 3.5 - 5.3 mmol/L 07/26/2024 2:24 PM EST [facility] Cl 103 98 - 107 mmol/L 07/26/2024 2:24 PM EST [facility] CO2 27 22 - 32 mmol/L 07/26/2024 2:24 PM EST [facility] Anion Gap 10 5 - 15 07/26/2024 2:24 PM EST [facility] Glucose 88 65 - 99 mg/dL 07/26/2024 2:24 PM EST [facility] Creatinine 0.77 0.50 - 1.20 mg/dL 07/26/2024 2:24 PM EST [facility] Calcium 9.5 8.6 - 10.5 mg/dL 07/26/2024 2:24 PM EST [facility] Total Protein 6.9 6.0 - 8.0 g/dL 07/26/2024 2:24 PM EST [facility] Albumin 4.3 3.5 - 5.2 g/dL 07/26/2024 2:24 PM EST [facility] Bilirubin, Total 0.3 0.2 - 1.2 mg/dL 07/26/2024 2:24 PM EST [facility] [employer] Alkaline Phosphatase 69 35 - 129 U/L 07/26/2024 2:24 PM EST [facility] [employer] [facility] AST 22 10 - 40 U/L 07/26/2024 2:24 PM EST [facility] ALT 28 10 - 40 U/L 07/26/2024 2:24 PM EST [facility] [employer] BUN 12 7 - 23 mg/dL 07/26/2024 2:24 PM EST [facility] [employer] eGFR >90 >=60 mL/min/1. 73m2 07/26/2024 2:24 PM EST [facility] Comment:The estimated glomer ular filtration rate (eGFR) is calculated using a new formula developed by the NKF-ASN task force to eliminate race-based correction factors. The new formula uses serum/plasma creatinine, age, and gender to determine eGFR. A value below 60mls/min might indicate kidney disease and will be flagged. For additional information, see Sun et al, Am J Kidney Dis. 2021;79(2):268- 288, A Unifying Approach for GFR estimation: Recommendations of the NKF-ASN Task Force on Reassessing the Inclusion of Race in Diagnosing Kidney Disease . Globulin, Total 2.6 2.1 - 4.2 g/dL 07/26/2024 2:24 PM EST [facility]ContestMachineTN [facility] A/G Ratio 1.7 1.5 - 3.0 07/26/2024 2:[address] [facility] [employer] [facility] Blood Structure of peripheral vein / Unknown Venipuncture / Unknown 07/26/2024 1:00 PM EST 07/26/2024 1:14 PM EST us David Recinos MD LAB BLOOD ORDERABLES Final Result [facility] [employer] [facility] [address] [place] [address], documented in this encounter Visit Diagnoses Diagnosis Mucocele of appendix- Primary Other and unspecified diseases of appendix Mucocele of appendix Other and unspecified diseases of appendix documented in this encounter Care Teams Steaming Cabinet Tender Relationship Specialty Start Date End Date Catrina Phan, LARISA [address] [facility] [address] PCP - General 11/24/23 documented as of this encounter
--- OUTSIDE RECORDS SUMMARY | 2024-08-12 10:55 | XMS_ITS | Encounter Summary ---
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 [place] 3rd [place] [address] 08/17/2024 8:15 AM EDT Hospital Encounter [facility] Operating Room [address] [place] [address] David Recinos MD [address] [place] [address] 08/17/2024 8:15 AM EDT - 08/17/2024 10:55 AM EDT Surgery [facility] Operating Room [address] [place] [address] David Recinos MD [address] [place] [address] ROBOTIC APPENDECTOMY [31975 (CPT??)] Scheduled Procedures Name Priority Associated Diagnoses Date/Ti me ROBOTIC APPENDECTOMY Mucocele of appendix 08/17/2024 8:15 AM EDT REPAIR UMBILICAL HERNIA, INCARCERATED Mucocele of appendix 08/17/2024 8:15 AM EDT documented as of this encounter Visit Diagnoses Not on filedocumented in this encounter Care Teams Manager Control Relationship Specialty Start Date End Date Ron Escobar NP [address] [place] [address] PCP - General 11/24/23 documented as of this encounter
--- OUTSIDE RECORDS SUMMARY | 2024-08-12 10:56 | XMS_ITS | Data Portability ---
Author Organization [place] [facility], [facility] Office Address [address] [place] [address] Care Team Providers Care Photographic Engineer Name Role Phone CATRINA PHAN Primary Care Provider Assessment Encounter Date Assessment Date Assessment LastModified by Organization Details LastModified Time 03/04/2024 03/04/2024 Beata is a 43 y/o female who presents today for evaluation of the lumbar spine PSH right L5-S1 MD in [address] Alford which she reports went well but she has dealt with severe low back pain beginning this September SHe describes it as a pressure sensation midline which radiates out towards her lateral hips, she describes severe stabbing pains with certain movements, these are fleeting in nature but are so painful she has been quite apprehensive about movement. On exam today she refuses spinal ROM citing pain, in testing her SI joints she denies any significant increase in pain. Her LE strenth and sensation are intact. Her MRI shows mild diffuse degenerative changes, most notable at L5-S1 where she has end plate changes as well as facet arthrosis. We discussed the difficulty localizing structural sources for neck pain as opposed to leg pain. The latter can generally be attributed to neural compression. Back pain on the other hand could be from structural abnormality like severe disc degeneration or instability, but just as easily could be from diffuse spondylosis which does not lend itself to surgery, or from entirely non-surgical diagnoses such as myofascial pain. Importantly, the presence of focal structural abnormality on MRI does not prove that these cause back pain, so that treating those findings may not address neck pain. We also discussed pain fear inhibition and her fear of movement which I explained can become cyclical and worsen pain. She does her best to try and go without prednisone but is not able to work or function without and her pain would leave her bed bound without it she explained. Ultimately Beata would not tolerate physical therapy at this point. We discussed oral medications including that I suggest she taper off her prednisone. I suspect some of her pain could be related to L5-S1. Having failed conservative treatments and dealing with this debilitating pain for greater than 3 months I would like to trial her with bilateral L5-S1 facet injections. After discussion Beata was in agreement, she will taper off her prednisone in anticipation and we will arrange for facet injections with [facility] radiology, we will see her back approximately 2 weeks after her injections to discuss potential next steps, she had all questions and concerns addressed. [email or web address] Not available 03/08/2024 07:28:15 Plan of Treatment Reminders Order Date Submit Date Provider Last Modified By Organization Details Last Modified Time Details Appointments None recorded. Lab None recorded. Referral None recorded. Procedures facet joint injection, lumbar (PROC) - Bilateral L5-S1 facet injections 2023 024 [facility] ([facility] Scheduling), [address] [place], [address], 09:56:31 Surgeries None recorded. Imaging None recorded. Medication Orders None recorded. Patient TargetsNo targets recorded. Patient InstructionsNo instructions recorded. Reason for Referral None Reported. Results Created Date Observation Date Name Description Value Unit Range Abnormal Flag Note LastModifiedBy Organization Detail LastModifiedTime 02/25/2009/09/2023 MRI, pelvi s, w/wo contr ast No observ ation record ed. [email or web address] Not Available 2023 14:17:23 02/25/20 24 04/15/2023 MRI, sacru m, w/wo contr ast No observ ation record ed. [email or web address] Not Available 2023 14:20:01 Result Notes None recorded. Procedures Surgical History Date Name Laterality Status Provider Name and Address Organization Details Recorded Time Orthopaedic Surgery completed Beatapatrica Barrett [place] [facility] 02/25/2024 14:13:02 Imaging Results Imaging Date Name Status LastModified by Organiz ation Details LastModified Time 09/09/2023 MRI, pelvis, w/wo contrast completed Information not available 02/25/2024 14:17:23 04/15/2023 MRI, sacrum, w/wo contrast completed Information not available 02/25/2024 14:20:01 Procedure Notes None recorded. Medical Equipment None Reported. Allergies Allergen ID Allergen Name Allergen Category Reaction Reaction Severity Criticality Documentation Date Start Date Code Code System Note Provider Name and Address Organization Details Recorded Time [id number] sulfameth oxazole medicatio n Not available Not available Not available 03/04/2024 32469 RxNorm Beata Barrett [facility] 12:47:09 Medications Name Sig Start Date Stop Date Status Note LastModified by Organization Details LastModified Time cyclobenzap rine 10 mg tablet 1 tablet as needed for pain/spas ms Orally TID 03/03 completed Not Available Not Available Not Available hydrocodone 5 mg-acetamin ophen 325 mg tablet 1 -2 tablet as needed Orally every 6 hrs 03/04 completed Not Available Not Available Not Available ondansetron HCl 4 mg tablet 1 tablet Orally BID 03/04 completed Not Available Not Available Not Available gabapentin 400 mg capsule Take 1 capsule 3 times a day by oral route. active Not Available Not Available No t Available methocarbam ol 750 mg tablet Take 1 tablet 3 times a day by oral route as needed, for muscle pain/spas m. 2023 active Not Available Not Available Not Avai lable hydroxyzine HCl 25 mg tablet Take 1 tablet 3 times a day by oral route. active Not Available Not Available No t Available gabapentin 100 mg capsule Take 2 capsules every day by oral route. 2023 active Not Available Not Available Not Avai lable celecoxib 100 mg capsule Take 1 capsule every day by oral route. active Not Available Not Available No t Available Methylpred DP 4 mg tablets in a dose pack Take by oral route. active Not Available Not Available No t Available Vitals Date Recorded Body height Body mass index (BMI) Body weight Provider Name and Address Organization Details Last Updated DateTime 03/04/2024 170.18 cm 23.2 kg/m2 05807.67 g Beata Barrett [facility] 03/04/2024 12:47:05 Social History Question Answer Notes LastModified by Organizat ion Details LastModified Time Tobacco Smoking Status Never Smoker Not Available [facility] 05/08/2022 23:19:34 What Is Your Level Of Alcohol Consumption? None Information not available 03/04/2024 Do You Or Have You Ever Used E-cigarettes Or Vape? 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 Never Used Smokeless Tobacco Information not available 03/04/2024 Sex: Unknown Functional Status None recorded. Mental Status None recorded. Family History Nothing Reported. Medical History Condition Response Osteoarthritis / Rheumatoid arthritis / Other Y Asthma / Shortness of Breath / Sleep Powder Coater ea (please specify) Y Any Other Significant Medical Issues Y Depression or Anxiety Y Gynecological HistoryNo gynecological history recorded. 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 [address], [address] [place] [address] 03/04/2024 12:04:43 03/04/2024 16:02:55 Lumbar spondylosis 387016459 M47.896 Health Concerns Section Related Observation LastModified by Organization Detai ls LastModified Time None Recorded Concern Status LastModified by Organization Details LastModified Time None Recorded Advance Directives Directive None Recorded Payers Encounter Date Sequence Insurance Name Policy Number Policy Ortega Covered Member ID Ortega Member ID Guarantor Name 03/04/2024 1 [place] [facility] [id number] Zaid Paredes [id number] Beata White Notes Date Note Type Note Provider Name and Address Organization Details Recorded Time 03/04/2024 text/html Beata is a 43 y /o female who presents today for evaluation of the lumbar spine She has PSH right L5-S1 MD [place] [address] Alford which she reports went well Today she reports this September 2023 she developed fairly severe pain, she reports a baseline pressure sensation in her low back but pain became excruciating this may described as stabbing pain worse with movement. She reports it can be fleeting or last a few minutes but is 10/10. She localizes it to midline just below her previous incision, she reports it radiates bilaterally off of midline stopping at the midpoint between her spine and hip. She denies any radiation of pain. She reports a longstanding buttocks pain she attributes to an extra spinal source mentioning it has been longstanding. She reports she does experience muscle spasm in that location when laying down. She is also comfortable sitting, essentially stationary she is pain free but movement exacerbates the pain. She is currently on 15mg prednisone, she can tolerate walking but she reports flexion, pelvic rotation and ante/retroversion as well as any squatting or spinal flexion causes severe pain. She also cites valsalva maneuver. She does endorse weakness in the legs, describes the legs as shaky and uses a walker because when pain flares she feels her legs may give out. she reports it is 10/10. In addition to prednisone, which she has been using for the last 5 weeks, she takes 400mg gabapentin QHS which she has been on since her discectomy for sciatic pain No change in bowel/bladder function. No numbness/tingling around her labia or anus region. Chief Complaint: {{ Lumbar pain#}} {{ Beata#}} presents to the office today {{referred by my physician library circulation assistant Ajay Ortega referred by their PCP under worker's compensation for an injury that occured on _}}, {{presenting by themselves* accompani ed with _}}, with complaints of {{back pain* right leg pain left leg pain bilateral lower extremity pain back pain radiating to _ no back pain but complaints of _}}. {{He She*}} {{complains of numbness in_ complains of tingling in_ complains of numbness and tingling in _ complains of burning in _ reports no changes in sensation*}}. {{He She*}} reports these symptoms have been persistent {{since _ for _ months for _ years since July 2023#}}. {{He She*}} reports feeling better with {{standing walking si tting laying down }} and feels worse when {{standing walking si tting laying down }}. {{He She*}} {{denies any complaints of* has complaints of}} {{urinary retention urinary incontinence bowel incontinence urinary retention or incontinence, or bowel incontinence*}}. {{He She*}} {{has* has not}} had prior lumbar spine surgery. Right L5-S1 microdiscectomy with Dr. Alford 2021 The patient reports having tried or not tried the following: TreatmentType/Duratio n Physical Therapy{{Has not tried* Tried for 3 months Tried for 6 months Tried within the past 12 months}} Medications{{Has tried Tylenol Has Tried Tylenol and NSAIDS* Has Tried NSAIDS Has not tried Tylenol or NSAIDS Has tried Tylenol and cannot take NSAIDS because of _ Has tried NSAIDS and cannot take Tylenol because of _}}. {{Has also tried* Has not tried}} {{Gabapentin Lyrica M uscle Relaxers Narcotic Pain Medications any other medications Narcotic Pain Medications, Gabapentin, and Muscle Relaxers#}}. Injections{{Yes, most recent was on_ Yes, has had _ total No Yes, most recent was in 2021#}}. Activity Modifications{{Yes* N o}} Consumer Product Advisor{{Yes No*}} Acupuncture{{Yes No*} } Worst Pain: {{1 2 3 4 5 6 7 8 9 1 0*}}/10. {{He She*}} had a lumbar spine MRI {{with without* with and without}} contrast on {{DATE 01/27/2024}} at {{[facility] OTHERFACILITYNAME}}. Comments: {{ weakness and balance difficulties#}} SARAH LAINEZ [address] [place], [address], [facility] 03/08/2024 07:29:59 OBGyn Episode No OBEpisode recorded.
--- OUTSIDE RECORDS SUMMARY | 2024-08-12 10:56 | XMS_ITS | Patient Health Record ---
Author Organization [facility] Health Services Address [address] [place] [address] Care Team Providers Care Warehouse Packer Name Role Phone LUIS FERNANDO Gregorio Primary Care Provider Unava ilPino Rubio Unavailable [phone] Tino Villeda Unavailable [phone] Arturo Castellon Unavailable [phone] Fredy Allison Unavailable [phone] Allergies No Known Allergies Reason For Referral Reason Please evaluate and treat Diagnosis 1 Acute bilateral low back pain without sciatica (M54.50) Referring Provider First Name Ron Referring Provider Last Name Darline Referred Organization [facility] Referred Provider Fredy Allison Referred Address [address],[place], [place],[address], Referred Provider Specialty Orthopedic S urgery Referral Priority Routine Diagnosis 1 Degeneration of inte rvertebral disc of lumbar region with discogenic back pain (M51.360) Referral Organization [facility] Referring Provider First Name Pino Referring Provider Last Name Kevin Referring Provider Speciality Physical M edicine and Rehab Referred Organization [facility] Referred Provider Pino Brown Referred Address [address],[place], [place],[address],[place] Referred Provider Specialty Physical Med icine and Rehab Referral Priority Routine Reason Evaluate and Treat: L5-S1 MIS TLIF- 07/13/24- [facility] Phone number [phone] Diagnosis 1 Lumbar facet arthrop athy (M47.816) Referral Organization [facility] Charline khan Referring Provider First Name Fredy Referring Provider Last Name Conrad matthews Referring Provider Speciality Orthopedic Surgery Referred Provider Specialty Physical The rapist Referral Priority Routine Medications Medication SIG (Take, Route, Frequency, Duration) Notes Start Date End Date Status Baclofen 10 MG 1 tablet as needed Orally Once a day Active Benadryl Allergy 25 MG 1 tablet at bedtime as needed Orally Once a day As needed Active Celecoxib 100 MG Oral Act kaleb Flovent HFA Active Gabapentin 400 MG 1 capsule Orally Once a day 400 mg and then 100mg mid day also 100mg mid day Active Methocarbamol 750 MG Oral Not-Taking Problems Problem Type SNOMED Code ICD Code Onset Dates Problem Status W/U Status Risk Notes Problem [id number] Other chronic pa in (G89.29) Active confirmed Problem 816244222 Lumbar facet arthropathy (M47.816) Active confirmed Problem [id number] Degeneration of intervertebral disc of lumbar region with discogenic back pain (M51.360) Active confirmed Vital Signs Temperature 97.8 degrees Fahrenheit 07/01/2024 Socrates duarte LPN Oximetry 100 % 05/03/2024 MUNIRA Arredondo Blood pressure diastolic 78 mm Hg 04/12/2024 Titus maki LPN Height 67 in 07/01/2024 CHACHO Salazar Blood pressure systolic 118 mm Hg 04/12/2024 Socrates duarte LPN Weight 150 lbs 07/01/2024 CHACHO Salazar BMI 23.49 kg/m2 07/01/2024 CHACHO Salazar Encounters Encounter Location Date Provider Diagnosis [facility] [address] [place] [address] 04/12/2024 Pino Brown Degeneration of intervertebral disc of lumbar region with discogenic back pain M51.360 ; Lumbar facet arthropathy M47.816 ; Other chronic pain G89.29 and History of microdiscectomy Z98.890 [facility] [address] [place] [address] 03/02/2024 Arturo Castellon [facility] [address] [place] [address] 04/06/2024 Vache Hambardzumyan [facility] [address] [place] [address] 05/04/2024 Vache Hambardzumyan [facility] [address] [place] [address] 05/05/2024 Vache Hambardzumyan [facility] [address] [place] [address] 05/06/2024 Vache Hambardzumyan Lumbar facet arthropathy M47.816 ; Facet arthropathy, lumbosacral M47.817 and Other intervertebral disc degeneration, lumbosacral region with discogenic back pain only M51.370 [facility] [address] [place] [address] 05/10/2024 Vache Hambardzumyan [facility] [address] [place] [address] 05/23/2024 Vache Hambardzumyan [facility] [address] [place] [address] 06/16/2024 Vache Hambardzumyan [facility] [address] [place] [address] 07/01/2024 Vache Hambardzumyan [facility] [address] [place] [address] 07/01/2024 Arturo Castellon [facility] [address] [place] [address] 07/06/2024 Vache Hambardzumyan [facility] [address] [place] [address] 07/15/2024 Vache Hambardzumyan [facility] [address] [place] [address] 05/03/2024 Vache Hambardzumyan Other intervertebral disc degeneration, lumbosacral region with discogenic back pain only M51.370 ; Facet arthropathy, lumbosacral M47.817 and History of discectomy Z98.890 [facility] [address] [place] [address] 07/13/2024 Fredy Allison Other intervertebral disc degeneration, lumbosacral region with discogenic back pain only M51.370 [facility] [address] [place] [address] 07/01/2024 Arturo Castellon Other intervertebral disc degeneration, lumbosacral region with discogenic back pain only M51.370 ; Facet arthropathy, lumbosacral M47.817 and History of discectomy Z98.890 [facility] [address] [place] [address] 04/08/2024 Fredy Prakashmycassie Other intervertebral disc degeneration, lumbar region with discogenic back pain only M51.360 ; Lumbar facet arthropathy M47.816 and History of discectomy Z98.890 Assessments Encounter Date Diagnosis (ICD Code) Assessment Notes Treatment Notes Treatment Clinical Notes Section Notes 04/08/2024 Lumbar facet arthropathy (ICD-10 - M47.816) 43 years old woman seen first time my office complaining of severe low back pain. Pain is significant affecting her quality of life and actives of daily living. She has difficulties ambulating and moving her right lower extremity. She has a history of L5 S1 right laminectomy discectomy due to L5-S1 disc bulge and right radiculopathy. She states that she is not experiencing radicular symptoms after surgery, however she developed severe low back pain which is constant, aggravated even by slightest movement in her right hip and knee. She underwent recent L5-S1 bilateral facet joint injection which significantly improved her pain so she is able to return to her work. Today clinical assessment did not reveal myotomal dermatomal deficiencies, her muscle strength in both lower extremities was limited to the effort due to the pain. MRI review did not reveal central canal stenosis or significant foraminal disease however MRI was significant for multilevel degenerative disc disease and facet arthropathies. I reviewed imaging studies with the patient, explained the pertinent changes, interpreted the results and discussed the implications. I explained and that her pain is predominantly axial, I discussed the possible sources of axial low back pain including discogenic component, facet arthropathies and muscular spasm which most of the time is main contributor. She is also aware that there might be somatization component and anxiety which might be contributing to her current complaints. I reviewed possible treatment options including physical therapy stretching strengthening exercises local steroid injections. Patient already has multiple sessions of physical therapy and taking multiple pain medications for pain control however without significant success. She is looking for holistic approach and possibility of repeat injection to address her condition. I will refer her to my partner at physical medicine and rehabilitation Dr. Brown for his expert assessment and management. I explained that in case if she needs repeat local injection she could be referred to our pain management team also. I had a lengthy discussion about the patient's condition natural history, as well as possible treatment options, alternatives, possible outcomes, and complications. Patient's all questions were answered and more detailed explanations were provided when necessary. The patient demonstrated a good understanding of the treatment plan and agreed with the proposed treatment. I encourage continuing a healthy lifestyle including regular exercises and a healthy diet. This document was generated with the aid of voice recognition software, please be aware there may be inadvertent press room supervisor errors not identified and corrected by the author. If patient develops new or worsening symptoms, increased pain they will reach to our office for appointment and repeat assessment, otherwise I will see them back on as-needed basis. Today spent overall 48 minutes interviewing and examining the patient, ordering imaging studies and reviewing the results, discussing the results with the patient, answering to questions and concerns, developing the treatment plan and producing clinical documentation. 04/08/2024 Other intervertebral disc degeneration, lumbar region with discogenic back pain only (ICD-10 - M51.360) 43 years old woman seen first time my office complaining of severe low back pain. Pain is significant affecting her quality of life and actives of daily living. She has difficulties ambulating and moving her right lower extremity. She has a history of L5 S1 right laminectomy discectomy due to L5-S1 disc bulge and right radiculopathy. She states that she is not experiencing radicular symptoms after surgery, however she developed severe low back pain which is constant, aggravated even by slightest movement in her right hip and knee. She underwent recent L5-S1 bilateral facet joint injection which significantly improved her pain so she is able to return to her work. Today clinical assessment did not reveal myotomal dermatomal deficiencies, her muscle strength in both lower extremities was limited to the effort due to the pain. MRI review did not reveal central canal stenosis or significant foraminal disease however MRI was significant for multilevel degenerative disc disease and facet arthropathies. I reviewed imaging studies with the patient, explained the pertinent changes, interpreted the results and discussed the implications. I explained and that her pain is predominantly axial, I discussed the possible sources of axial low back pain including discogenic component, facet arthropathies and muscular spasm which most of the time is main contributor. She is also aware that there might be somatization component and anxiety which might be contributing to her current complaints. I reviewed possible treatment options including physical therapy stretching strengthening exercises local steroid injections. Patient already has multiple sessions of physical therapy and taking multiple pain medications for pain control however without significant success. She is looking for holistic approach and possibility of repeat injection to address her condition. I will refer her to my partner at physical medicine and rehabilitation Dr. Brown for his expert assessment and management. I explained that in case if she needs repeat local injection she could be referred to our pain management team also. I had a lengthy discussion about the patient's condition natural history, as well as possible treatment options, alternatives, possible outcomes, and complications. Patient's all questions were answered and more detailed explanations were provided when necessary. The patient demonstrated a good understanding of the treatment plan and agreed with the proposed treatment. I encourage continuing a healthy lifestyle including regular exercises and a healthy diet. This document was generated with the aid of voice recognition software, please be aware there may be inadvertent press room supervisor errors not identified and corrected by the author. If patient develops new or worsening symptoms, increased pain they will reach to our office for appointment and repeat assessment, otherwise I will see them back on as-needed basis. Today spent overall 48 minutes interviewing and examining the patient, ordering imaging studies and reviewing the results, discussing the results with the patient, answering to questions and concerns, developing the treatment plan and producing clinical documentation. 04/12/2024 Lumbar facet arthropathy (ICD-10 - M47.816) . . PLAN OF CARE / RECOMMENDATIONS: Today's Date: 04/12/24 by [facility] . LOW BACK - CHRONIC , WORSENING - Intermittent but chronic excruciating pain in buttocks/sacrum. Worse with walking, standing, ex. Stabbing pains in Lumbar - S/P L5-S1 Microdiscectomy 06/09/21 Dr. Rocío Stanton --> resolved the R sciatica of the time . NOTES reviewed to confirm history, physical and findings. - s/p Epidural block on 01/09/21 - s/p Right S1 nerve root block 09/17/21 - S/p cortisone shot L5-S1 Bilateral facet joints 03/29/24 - by surgeon . + response to the LBP/ much less 'stabbing' - MRI Lumbar Spine January 27, 2024 in [facility] - ordered by PCP. Reviewed images. --> MOD/SEVERE DDD L5S1 with Modic change. Mild disc darkening L4-5 and L2-3. No LSS . + facet OA L4-5-1 - s/p [facility] consult 04-08-24. Reviewed PT, INJ, Meds. I spoke to directly . He recalls discussion about ant vs post fusion - ? Why not fusion. Pt has considered all her options and would like to pursue if still a viable option. confirms is willing to see her back to discuss TLIF - RFA ? Discussed. Reviewed Dr Ibarra expertise. Pt is hoping to pursue surg over 'management' with continued/ recurrent injections - SEE SCANNED DRAWINGS: We hand illustrated the involved anatomy and clinical findings with drawings made for the patient and provided to them for their files. A summary of treatment/ eval options was included. A copy was scanned to the EMR as well and an OV summary was printed at the time of discharge. . . LABS: - 10/15/23 Glu 77; Cr 0.80; GFR 92; Hgb 12.4; Hct 38.5; - 08/20/23 Glu 88; Cr 0.76; LFTS nl; GFR 99; hgb 13.4; Hct 43.0 . . PAIN: - gabapentin 400mg @ HS . REC adding STAN 100mg TID - baclofen 5-10mg. REC trial OFF this added med - celexoib 100mg BID . Continue - s/p diclofenac, prednisone taper, tramadol 50mg, prednisone 20mg , methocarbomal, vicodin [she has unused Rx at home] . . 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 . total time of 90 minutes was spent on this visit date reviewing other [facility] conditions chart data, interaction and education with the patient, communicating with others involved, and completing all chart updates and documentation re: changes since last encounter. 04/12/2024 Degeneration of intervertebral disc of lumbar region with discogenic back pain (ICD-10 - M51.360) . . PLAN OF CARE / RECOMMENDATIONS: Today's Date: 04/12/24 by [facility] . LOW BACK - CHRONIC , WORSENING - Intermittent but chronic excruciating pain in buttocks/sacrum. Worse with walking, standing, ex. Stabbing pains in Lumbar - S/P L5-S1 Microdiscectomy 06/09/21 Dr. Rocío Skeltontist --> resolved the R sciatica of the time . NOTES reviewed to confirm history, physical and findings. - s/p Epidural block on 01/09/21 - s/p Right S1 nerve root block 09/17/21 - S/p cortisone shot L5-S1 Bilateral facet joints 03/29/24 - by surgeon . + response to the LBP/ much less 'stabbing' - MRI Lumbar Spine January 27, 2024 in [facility] - ordered by PCP. Reviewed images. --> MOD/SEVERE DDD L5S1 with Modic change. Mild disc darkening L4-5 and L2-3. No LSS . + facet OA L4-5-1 - s/p consult 04-08-24. Reviewed PT, INJ, Meds. I spoke to directly . He recalls discussion about ant vs post fusion - ? Why not fusion. Pt has considered all her options and would like to pursue if still a viable option. confirms is willing to see her back to discuss TLIF - RFA ? Discussed. Reviewed Dr Ibarra expertise. Pt is hoping to pursue surg over 'management' with continued/ recurrent injections - SEE SCANNED DRAWINGS: We hand illustrated the involved anatomy and clinical findings with drawings made for the patient and provided to them for their files. A summary of treatment/ eval options was included. A copy was scanned to the EMR as well and an OV summary was printed at the time of discharge. . . LABS: - 10/15/23 Glu 77; Cr 0.80; GFR 92; Hgb 12.4; Hct 38.5; - 08/20/23 Glu 88; Cr 0.76; LFTS nl; GFR 99; hgb 13.4; Hct 43.0 . . PAIN: - gabapentin 400mg @ HS . REC adding STAN 100mg TID - baclofen 5-10mg. REC trial OFF this added med - celexoib 100mg BID . Continue - s/p diclofenac, prednisone taper, tramadol 50mg, prednisone 20mg , methocarbomal, vicodin [she has unused Rx at home] . . 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 . total time of 90 minutes was spent on this visit date reviewing other [facility] conditions chart data, interaction and education with the patient, communicating with others involved, and completing all chart updates and documentation re: changes since last encounter. 05/03/2024 Facet arthropathy, lumbosacral (ICD-10 - M47.817) 43 years old woman seen for follow-up visit complaining of severe low back pain. Pain is significant affecting her quality of life and actives of daily living. She has difficulties ambulating and moving her right lower extremity. She has a history of L5 S1 right laminectomy discectomy due to L5-S1 disc bulge and right radiculopathy. She states that she is not experiencing radicular symptoms after surgery, however she developed severe low back pain which is constant, aggravated even by slightest movement in her right hip and knee. She underwent recent L5-S1 bilateral facet joint injection which significantly improved her pain so she is able to return to her work. Today clinical assessment did not reveal myotomal dermatomal deficiencies, her muscle strength in both lower extremities was limited to the effort due to the pain. MRI review did not reveal central canal stenosis or significant foraminal disease however MRI was significant for multilevel degenerative disc disease and facet arthropathies predominantly at L5-S1 with Modic type changes. I reviewed imaging studies with the patient, explained the pertinent changes, interpreted the results and discussed the implications. I explained and that her pain is predominantly axial, I discussed the possible sources of axial low back pain including discogenic component, facet arthropathies and muscular spasm. She is also aware that there might be somatization component and anxiety which might be contributing to her current complaints. I reviewed possible treatment options including physical therapy stretching strengthening exercises local steroid injections. Patient already has multiple sessions of physical therapy and taking multiple pain medications for pain control however without significant success. Patient was seen by my partner Dr. Brown physical medicine rehabilitation team and levels I referred her back to me to discuss possible surgical options. Patient states that she is in significant amount of pain, she is feeling frustrated due to the failure of conservative management. She states that the facet joint steroid injections which were helpful initially looks like wearing off. She is looking for ultimate management. I discussed the possibility of L5-S1 fusion as a last resort. I discussed the possibility of anterior approach with L5-S1 ALIF however fully disclosed that I do not have an access surgeon and want to be able to date at [facility]. I also discussed the possibility of MIS L5-S1 TLIF. I discussed all the pros and cons of both approaches. Patient demonstrated with understanding and after lengthy discussion of pros and cons she decided to progress with L5-S1 TLIF. I explained all possible complications outcomes and alternatives of the surgery including but not limited to infection, blood clot formation, pulmonary embolism, postoperative hematoma, transient or permanent nerve injury, spinal fluid leak, need for second surgery, progression of disease at the level above the fusion, hardware failure, prolonged recovery. Patient demonstrated good understanding and agreed to progress with surgery. Will start preoperative optimization process. Will obtain CT scan of the lumbar spine as well as lumbar spine AP lateral flexion-extension x-rays for preoperative planning. I will review her x-rays and CT scan during her preoperative visit. I had a lengthy discussion about the patient's condition natural history, as well as possible treatment options, alternatives, possible outcomes, and complications. Patient's all questions were answered and more detailed explanations were provided when necessary. The patient demonstrated a good understanding of the treatment plan and agreed with the proposed treatment. I encourage continuing a healthy lifestyle including regular exercises and a healthy diet. This document was generated with the aid of voice recognition software, please be aware there may be inadvertent press room supervisor errors not identified and corrected by the author. 05/03/2024 Other intervertebral disc degeneration, lumbosacral region with discogenic back pain only (ICD-10 - M51.370) 43 years old woman seen for follow-up visit complaining of severe low back pain. Pain is significant affecting her quality of life and actives of daily living. She has difficulties ambulating and moving her right lower extremity. She has a history of L5 S1 right laminectomy discectomy due to L5-S1 disc bulge and right radiculopathy. She states that she is not experiencing radicular symptoms after surgery, however she developed severe low back pain which is constant, aggravated even by slightest movement in her right hip and knee. She underwent recent L5-S1 bilateral facet joint injection which significantly improved her pain so she is able to return to her work. Today clinical assessment did not reveal myotomal dermatomal deficiencies, her muscle strength in both lower extremities was limited to the effort due to the pain. MRI review did not reveal central canal stenosis or significant foraminal disease however MRI was significant for multilevel degenerative disc disease and facet arthropathies predominantly at L5-S1 with Modic type changes. I reviewed imaging studies with the patient, explained the pertinent changes, interpreted the results and discussed the implications. I explained and that her pain is predominantly axial, I discussed the possible sources of axial low back pain including discogenic component, facet arthropathies and muscular spasm. She is also aware that there might be somatization component and anxiety which might be contributing to her current complaints. I reviewed possible treatment options including physical therapy stretching strengthening exercises local steroid injections. Patient already has multiple sessions of physical therapy and taking multiple pain medications for pain control however without significant success. Patient was seen by my partner Dr. Brown physical medicine rehabilitation team and levels I referred her back to me to discuss possible surgical options. Patient states that she is in significant amount of pain, she is feeling frustrated due to the failure of conservative management. She states that the facet joint steroid injections which were helpful initially looks like wearing off. She is looking for ultimate management. I discussed the possibility of L5-S1 fusion as a last resort. I discussed the possibility of anterior approach with L5-S1 ALIF however fully disclosed that I do not have an access surgeon and want to be able to date at [facility]. I also discussed the possibility of MIS L5-S1 TLIF. I discussed all the pros and cons of both approaches. Patient demonstrated with understanding and after lengthy discussion of pros and cons she decided to progress with L5-S1 TLIF. I explained all possible complications outcomes and alternatives of the surgery including but not limited to infection, blood clot formation, pulmonary embolism, postoperative hematoma, transient or permanent nerve injury, spinal fluid leak, need for second surgery, progression of disease at the level above the fusion, hardware failure, prolonged recovery. Patient demonstrated good understanding and agreed to progress with surgery. Will start preoperative optimization process. Will obtain CT scan of the lumbar spine as well as lumbar spine AP lateral flexion-extension x-rays for preoperative planning. I will review her x-rays and CT scan during her preoperative visit. I had a lengthy discussion about the patient's condition natural history, as well as possible treatment options, alternatives, possible outcomes, and complications. Patient's all questions were answered and more detailed explanations were provided when necessary. The patient demonstrated a good understanding of the treatment plan and agreed with the proposed treatment. I encourage continuing a healthy lifestyle including regular exercises and a healthy diet. This document was generated with the aid of voice recognition software, please be aware there may be inadvertent press room supervisor errors not identified and corrected by the author. 05/06/2024 Lumbar facet arthropathy (ICD-10 - M47.816) 07/01/2024 Other intervertebral disc degeneration, lumbosacral region with discogenic back pain only (ICD-10 - M51.370) Preoperative symptoms include axial back pain, left greater than right sciatic pain Pre-operative visit-Progression of orthopedic spine condition leading to recommendation for surgical intervention reviewed. -Patient has been evaluated and deemed to have fitting orthopedic spine condition which is candidate for surgical intervention per Dr. Fredy Allison MD.-Previous treatment and progression of of symptoms reviewed. Inadequate pain relief with epidural steroid injection. Current pain management regimen not adequate and not allowing for rehabilitation at this time.-Alternatives to surgical intervention reviewed.-Specific s of planned surgery reviewed in depth, models and pictures were utilized .-Surgical consent reviewed.-Patient wishes to proceed with review of surgical consent.-Pertinent past medical history reviewed. Stable per primary care, low risk. -PCP risk stratification and optimization reviewed. No additional modifiable risk factors identified. Acceptable surgical risk.-Patient home medications reviewed and confirmed. Will discontinue Celebrex 10 days prior to surgery-Preoperati ve health screening reviewed. Outstanding? Imaging-Preoperati ve labs reviewed. Interventions none. -Pending confirmation of MRI, CT prior to date of surgery. Not currently able to review at this time.-Surgical consent reviewed. In-depth review regarding type and purpose of procedure, risks of procedure, possible consequences of the procedure, alternative to this surgical intervention, possible progression of patient's condition if alternatives pursued versus surgery reviewed at length and all questions answered to patient's satisfaction. Possible complications and measures taken to avoid said complications reviewed in depth and all questions answered. These include but are not limited to wound complication, superficial or deep infection, bleeding, hematoma, pain, dural tear, damage to nerve/spinal cord or vascular structures. Potential surgical failure to improve symptoms and may worsen pain was discussed. Anesthesia will review possible side effects or complications of anesthesia in preoperative area day of surgery. Potential for intraoperative and postoperative bleeding which may or may not require transfusion. Written consent for blood products obtained. Potential for postoperative muscle spasm reviewed. Possibility for complication or inadequate relief of symptoms leading to recommendation for revision surgery reviewed. Patient demonstrates good understanding. Patient agrees I have not promised them any definitive outcome or complete resolution of preoperative symptoms. They have asked all of their questions and are satisfied with answers.They will reach out to [facility] with any additional questions or concerns as they arrive both in the preoperative and postoperative window. Upon review patient wishes to continue with surgical option. No consent obtained -Spine infopacket provided for patient review-Shower kit obtained Anticipated Post- operative plan-Chemical VTE prophylaxis: None-Active SAH, active clotting disorder or hypersensitivity to TXA? No, no contraindication to TXA.-Preferred medication for breakthrough pain: Baclofen, minimal opioid, Tylenol-Will require CT and MRI available for review prior to surgery.-Follow-up : Via telephone for progress on receiving imaging studies. Telephone counter created.-Periopera tive rehabilitation discussed, patientis in good understanding. All questions/concerns adressed and reviewed to patient satisfaction. Additional information added where appropriate.-Ravindra aguilera barriers to treatment plan/additional considerations Unable to view MRI, CT in PACS at this time 43 years old woman seen for follow-up visit complaining of severe low back pain. Pain is significant affecting her quality of life and actives of daily living. She has difficulties ambulating and moving her right lower extremity. She has a history of L5 S1 right laminectomy discectomy due to L5-S1 disc bulge and right radiculopathy. She states that she is not experiencing radicular symptoms after surgery, however she developed severe low back pain which is constant, aggravated even by slightest movement in her right hip and knee. She underwent recent L5-S1 bilateral facet joint injection which significantly improved her pain so she is able to return to her work. Today clinical assessment did not reveal myotomal dermatomal deficiencies, her muscle strength in both lower extremities was limited to the effort due to the pain. MRI review did not reveal central canal stenosis or significant foraminal disease however MRI was significant for multilevel degenerative disc disease and facet arthropathies predominantly at L5-S1 with Modic type changes. I reviewed imaging studies with the patient, explained the pertinent changes, interpreted the results and discussed the implications. I explained and that her pain is predominantly axial, I discussed the possible sources of axial low back pain including discogenic component, facet arthropathies and muscular spasm. She is also aware that there might be somatization component and anxiety which might be contributing to her current complaints. I reviewed possible treatment options including physical therapy stretching strengthening exercises local steroid injections. Patient already has multiple sessions of physical therapy and taking multiple pain medications for pain control however without significant success. Patient was seen by my partner Dr. Brown physical medicine rehabilitation team and levels I referred her back to me to discuss possible surgical options. Patient states that she is in significant amount of pain, she is feeling frustrated due to the failure of conservative management. She states that the facet joint steroid injections which were helpful initially looks like wearing off. She is looking for ultimate management. I discussed the possibility of L5-S1 fusion as a last resort. I discussed the possibility of anterior approach with L5-S1 ALIF however fully disclosed that I do not have an access surgeon and want to be able to date at [facility]. I also discussed the possibility of MIS L5-S1 TLIF. I discussed all the pros and cons of both approaches. Patient demonstrated with understanding and after lengthy discussion of pros and cons she decided to progress with L5-S1 TLIF. I explained all possible complications outcomes and alternatives of the surgery including but not limited to infection, blood clot formation, pulmonary embolism, postoperative hematoma, transient or permanent nerve injury, spinal fluid leak, need for second surgery, progression of disease at the level above the fusion, hardware failure, prolonged recovery. Patient demonstrated good understanding and agreed to progress with surgery. Will start preoperative optimization process. Will obtain CT scan of the lumbar spine as well as lumbar spine AP lateral flexion-extension x-rays for preoperative planning. I will review her x-rays and CT scan during her preoperative visit. I had a lengthy discussion about the patient's condition natural history, as well as possible treatment options, alternatives, possible outcomes, and complications. Patient's all questions were answered and more detailed explanations were provided when necessary. The patient demonstrated a good understanding of the treatment plan and agreed with the proposed treatment. I encourage continuing a healthy lifestyle including regular exercises and a healthy diet. This document was generated with the aid of voice recognition software, please be aware there may be inadvertent press room supervisor errors not identified and corrected by the author. 07/13/2024 Other intervertebral disc degeneration, lumbosacral region with discogenic back pain only (ICD-10 - M51.370) Patient presente d today for surgery: L5-S1 MIS TLIF. In the preoperative area while undergoing assessment by anesthesiologist, the patient and anesthesiologist developed misunderstanding on personal level. Attempts to mitigate the situation were not successful. They both felt uncomfortable to continue further doctor-patient relationship. The second anesthesiologist who was assigned to another OR, refused to switch over. For that reason, the case was rescheduled on a later date July 26, 2024. I had a lengthy discussion with the patient about the current situation. Patient was upset, tearful, however demonstrated good understanding and agreed to have a surgery on a later date. The nursing staff and nursing management was present during the entire encounter. 07/01/2024 Facet arthropathy, lumbosacral (ICD-10 - M47.817) 43 years old woman seen for follow-up visit complaining of severe low back pain. Pain is significant affecting her quality of life and actives of daily living. She has difficulties ambulating and moving her right lower extremity. She has a history of L5 S1 right laminectomy discectomy due to L5-S1 disc bulge and right radiculopathy. She states that she is not experiencing radicular symptoms after surgery, however she developed severe low back pain which is constant, aggravated even by slightest movement in her right hip and knee. She underwent recent L5-S1 bilateral facet joint injection which significantly improved her pain so she is able to return to her work. Today clinical assessment did not reveal myotomal dermatomal deficiencies, her muscle strength in both lower extremities was limited to the effort due to the pain. MRI review did not reveal central canal stenosis or significant foraminal disease however MRI was significant for multilevel degenerative disc disease and facet arthropathies predominantly at L5-S1 with Modic type changes. I reviewed imaging studies with the patient, explained the pertinent changes, interpreted the results and discussed the implications. I explained and that her pain is predominantly axial, I discussed the possible sources of axial low back pain including discogenic component, facet arthropathies and muscular spasm. She is also aware that there might be somatization component and anxiety which might be contributing to her current complaints. I reviewed possible treatment options including physical therapy stretching strengthening exercises local steroid injections. Patient already has multiple sessions of physical therapy and taking multiple pain medications for pain control however without significant success. Patient was seen by my partner Dr. Brown physical medicine rehabilitation team and levels I referred her back to me to discuss possible surgical options. Patient states that she is in significant amount of pain, she is feeling frustrated due to the failure of conservative management. She states that the facet joint steroid injections which were helpful initially looks like wearing off. She is looking for ultimate management. I discussed the possibility of L5-S1 fusion as a last resort. I discussed the possibility of anterior approach with L5-S1 ALIF however fully disclosed that I do not have an access surgeon and want to be able to date at [facility]. I also discussed the possibility of MIS L5-S1 TLIF. I discussed all the pros and cons of both approaches. Patient demonstrated with understanding and after lengthy discussion of pros and cons she decided to progress with L5-S1 TLIF. I explained all possible complications outcomes and alternatives of the surgery including but not limited to infection, blood clot formation, pulmonary embolism, postoperative hematoma, transient or permanent nerve injury, spinal fluid leak, need for second surgery, progression of disease at the level above the fusion, hardware failure, prolonged recovery. Patient demonstrated good understanding and agreed to progress with surgery. Will start preoperative optimization process. Will obtain CT scan of the lumbar spine as well as lumbar spine AP lateral flexion-extension x-rays for preoperative planning. I will review her x-rays and CT scan during her preoperative visit. I had a lengthy discussion about the patient's condition natural history, as well as possible treatment options, alternatives, possible outcomes, and complications. Patient's all questions were answered and more detailed explanations were provided when necessary. The patient demonstrated a good understanding of the treatment plan and agreed with the proposed treatment. I encourage continuing a healthy lifestyle including regular exercises and a healthy diet. This document was generated with the aid of voice recognition software, please be aware there may be inadvertent press room supervisor errors not identified and corrected by the author. 05/06/2024 Facet arthropathy, lumbosacral (ICD-10 - M47.817) 05/03/2024 History of discectomy (ICD-10 - Z98.890) 43 years old woman seen for follow-up visit complaining of severe low back pain. Pain is significant affecting her quality of life and actives of daily living. She has difficulties ambulating and moving her right lower extremity. She has a history of L5 S1 right laminectomy discectomy due to L5-S1 disc bulge and right radiculopathy. She states that she is not experiencing radicular symptoms after surgery, however she developed severe low back pain which is constant, aggravated even by slightest movement in her right hip and knee. She underwent recent L5-S1 bilateral facet joint injection which significantly improved her pain so she is able to return to her work. Today clinical assessment did not reveal myotomal dermatomal deficiencies, her muscle strength in both lower extremities was limited to the effort due to the pain. MRI review did not reveal central canal stenosis or significant foraminal disease however MRI was significant for multilevel degenerative disc disease and facet arthropathies predominantly at L5-S1 with Modic type changes. I reviewed imaging studies with the patient, explained the pertinent changes, interpreted the results and discussed the implications. I explained and that her pain is predominantly axial, I discussed the possible sources of axial low back pain including discogenic component, facet arthropathies and muscular spasm. She is also aware that there might be somatization component and anxiety which might be contributing to her current complaints. I reviewed possible treatment options including physical therapy stretching strengthening exercises local steroid injections. Patient already has multiple sessions of physical therapy and taking multiple pain medications for pain control however without significant success. Patient was seen by my partner Dr. Brown physical medicine rehabilitation team and levels I referred her back to me to discuss possible surgical options. Patient states that she is in significant amount of pain, she is feeling frustrated due to the failure of conservative management. She states that the facet joint steroid injections which were helpful initially looks like wearing off. She is looking for ultimate management. I discussed the possibility of L5-S1 fusion as a last resort. I discussed the possibility of anterior approach with L5-S1 ALIF however fully disclosed that I do not have an access surgeon and want to be able to date at [facility]. I also discussed the possibility of MIS L5-S1 TLIF. I discussed all the pros and cons of both approaches. Patient demonstrated with understanding and after lengthy discussion of pros and cons she decided to progress with L5-S1 TLIF. I explained all possible complications outcomes and alternatives of the surgery including but not limited to infection, blood clot formation, pulmonary embolism, postoperative hematoma, transient or permanent nerve injury, spinal fluid leak, need for second surgery, progression of disease at the level above the fusion, hardware failure, prolonged recovery. Patient demonstrated good understanding and agreed to progress with surgery. Will start preoperative optimization process. Will obtain CT scan of the lumbar spine as well as lumbar spine AP lateral flexion-extension x-rays for preoperative planning. I will review her x-rays and CT scan during her preoperative visit. I had a lengthy discussion about the patient's condition natural history, as well as possible treatment options, alternatives, possible outcomes, and complications. Patient's all questions were answered and more detailed explanations were provided when necessary. The patient demonstrated a good understanding of the treatment plan and agreed with the proposed treatment. I encourage continuing a healthy lifestyle including regular exercises and a healthy diet. This document was generated with the aid of voice recognition software, please be aware there may be inadvertent press room supervisor errors not identified and corrected by the author. 04/12/2024 Other chronic pain (ICD-10 - G89.29) . . PLAN OF CARE / RECOMMENDATIONS: Today's Date: 04/12/24 by [facility] . LOW BACK - CHRONIC , WORSENING - Intermittent but chronic excruciating pain in buttocks/sacrum. Worse with walking, standing, ex. Stabbing pains in Lumbar - S/P L5-S1 Microdiscectomy 06/09/21 Dr. Rocío Stanton --> resolved the R sciatica of the time . NOTES reviewed to confirm history, physical and findings. - s/p Epidural block on 01/09/21 - s/p Right S1 nerve root block 09/17/21 - S/p cortisone shot L5-S1 Bilateral facet joints 03/29/24 - by surgeon . + response to the LBP/ much less 'stabbing' - MRI Lumbar Spine January 27, 2024 in [facility] - ordered by PCP. Reviewed images. --> MOD/SEVERE DDD L5S1 with Modic change. Mild disc darkening L4-5 and L2-3. No LSS . + facet OA L4-5-1 - s/p consult 04-08-24. Reviewed PT, INJ, Meds. I spoke to directly . He recalls discussion about ant vs post fusion - ? Why not fusion. Pt has considered all her options and would like to pursue if still a viable option. confirms is willing to see her back to discuss TLIF - RFA ? Discussed. Reviewed Dr Ibarra expertise. Pt is hoping to pursue surg over 'management' with continued/ recurrent injections - SEE SCANNED DRAWINGS: We hand illustrated the involved anatomy and clinical findings with drawings made for the patient and provided to them for their files. A summary of treatment/ eval options was included. A copy was scanned to the EMR as well and an OV summary was printed at the time of discharge. . . LABS: - 10/15/23 Glu 77; Cr 0.80; GFR 92; Hgb 12.4; Hct 38.5; - 08/20/23 Glu 88; Cr 0.76; LFTS nl; GFR 99; hgb 13.4; Hct 43.0 . . PAIN: - gabapentin 400mg @ HS . REC adding STAN 100mg TID - baclofen 5-10mg. REC trial OFF this added med - celexoib 100mg BID . Continue - s/p diclofenac, prednisone taper, tramadol 50mg, prednisone 20mg , methocarbomal, vicodin [she has unused Rx at home] . . 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 . total time of 90 minutes was spent on this visit date reviewing other [facility] conditions chart data, interaction and education with the patient, communicating with others involved, and completing all chart updates and documentation re: changes since last encounter. 04/08/2024 History of discectomy (ICD-10 - Z98.890) 43 years old woman seen first time my office complaining of severe low back pain. Pain is significant affecting her quality of life and actives of daily living. She has difficulties ambulating and moving her right lower extremity. She has a history of L5 S1 right laminectomy discectomy due to L5-S1 disc bulge and right radiculopathy. She states that she is not experiencing radicular symptoms after surgery, however she developed severe low back pain which is constant, aggravated even by slightest movement in her right hip and knee. She underwent recent L5-S1 bilateral facet joint injection which significantly improved her pain so she is able to return to her work. Today clinical assessment did not reveal myotomal dermatomal deficiencies, her muscle strength in both lower extremities was limited to the effort due to the pain. MRI review did not reveal central canal stenosis or significant foraminal disease however MRI was significant for multilevel degenerative disc disease and facet arthropathies. I reviewed imaging studies with the patient, explained the pertinent changes, interpreted the results and discussed the implications. I explained and that her pain is predominantly axial, I discussed the possible sources of axial low back pain including discogenic component, facet arthropathies and muscular spasm which most of the time is main contributor. She is also aware that there might be somatization component and anxiety which might be contributing to her current complaints. I reviewed possible treatment options including physical therapy stretching strengthening exercises local steroid injections. Patient already has multiple sessions of physical therapy and taking multiple pain medications for pain control however without significant success. She is looking for holistic approach and possibility of repeat injection to address her condition. I will refer her to my partner at physical medicine and rehabilitation Dr. Brown for his expert assessment and management. I explained that in case if she needs repeat local injection she could be referred to our pain management team also. I had a lengthy discussion about the patient's condition natural history, as well as possible treatment options, alternatives, possible outcomes, and complications. Patient's all questions were answered and more detailed explanations were provided when necessary. The patient demonstrated a good understanding of the treatment plan and agreed with the proposed treatment. I encourage continuing a healthy lifestyle including regular exercises and a healthy diet. This document was generated with the aid of voice recognition software, please be aware there may be inadvertent press room supervisor errors not identified and corrected by the author. If patient develops new or worsening symptoms, increased pain they will reach to our office for appointment and repeat assessment, otherwise I will see them back on as-needed basis. Today spent overall 48 minutes interviewing and examining the patient, ordering imaging studies and reviewing the results, discussing the results with the patient, answering to questions and concerns, developing the treatment plan and producing clinical documentation. 04/12/2024 History of microdiscectomy (ICD-10 - Z98.890) . . PLAN OF CARE / RECOMMENDATIONS: Today's Date: 04/12/24 by [facility] . LOW BACK - CHRONIC , WORSENING - Intermittent but chronic excruciating pain in buttocks/sacrum. Worse with walking, standing, ex. Stabbing pains in Lumbar - S/P L5-S1 Microdiscectomy 06/09/21 Dr. Rocío Stanton --> resolved the R sciatica of the time . NOTES reviewed to confirm history, physical and findings. - s/p Epidural block on 01/09/21 - s/p Right S1 nerve root block 09/17/21 - S/p cortisone shot L5-S1 Bilateral facet joints 03/29/24 - by surgeon . + response to the LBP/ much less 'stabbing' - MRI Lumbar Spine January 27, 2024 in [facility] - ordered by PCP. Reviewed images. --> MOD/SEVERE DDD L5S1 with Modic change. Mild disc darkening L4-5 and L2-3. No LSS . + facet OA L4-5-1 - s/p VH consult 04-08-24. Reviewed PT, INJ, Meds. I spoke to directly . He recalls discussion about ant vs post fusion - ? Why not fusion. Pt has considered all her options and would like to pursue if still a viable option. confirms is willing to see her back to discuss TLIF - RFA ? Discussed. Reviewed Dr Ibarra expertise. Pt is hoping to pursue surg over 'management' with continued/ recurrent injections - SEE SCANNED DRAWINGS: We hand illustrated the involved anatomy and clinical findings with drawings made for the patient and provided to them for their files. A summary of treatment/ eval options was included. A copy was scanned to the EMR as well and an OV summary was printed at the time of discharge. . . LABS: - 10/15/23 Glu 77; Cr 0.80; GFR 92; Hgb 12.4; Hct 38.5; - 08/20/23 Glu 88; Cr 0.76; LFTS nl; GFR 99; hgb 13.4; Hct 43.0 . . PAIN: - gabapentin 400mg @ HS . REC adding STAN 100mg TID - baclofen 5-10mg. REC trial OFF this added med - celexoib 100mg BID . Continue - s/p diclofenac, prednisone taper, tramadol 50mg, prednisone 20mg , methocarbomal, vicodin [she has unused Rx at home] . . 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 . total time of 90 minutes was spent on this visit date reviewing other [facility] conditions chart data, interaction and education with the patient, communicating with others involved, and completing all chart updates and documentation re: changes since last encounter. 05/06/2024 Other intervertebral disc degeneration, lumbosacral region with discogenic back pain only (ICD-10 - M51.370) 07/01/2024 History of discectomy (ICD-10 - Z98.890) 43 years old woman seen for follow-up visit complaining of severe low back pain. Pain is significant affecting her quality of life and actives of daily living. She has difficulties ambulating and moving her right lower extremity. She has a history of L5 S1 right laminectomy discectomy due to L5-S1 disc bulge and right radiculopathy. She states that she is not experiencing radicular symptoms after surgery, however she developed severe low back pain which is constant, aggravated even by slightest movement in her right hip and knee. She underwent recent L5-S1 bilateral facet joint injection which significantly improved her pain so she is able to return to her work. Today clinical assessment did not reveal myotomal dermatomal deficiencies, her muscle strength in both lower extremities was limited to the effort due to the pain. MRI review did not reveal central canal stenosis or significant foraminal disease however MRI was significant for multilevel degenerative disc disease and facet arthropathies predominantly at L5-S1 with Modic type changes. I reviewed imaging studies with the patient, explained the pertinent changes, interpreted the results and discussed the implications. I explained and that her pain is predominantly axial, I discussed the possible sources of axial low back pain including discogenic component, facet arthropathies and muscular spasm. She is also aware that there might be somatization component and anxiety which might be contributing to her current complaints. I reviewed possible treatment options including physical therapy stretching strengthening exercises local steroid injections. Patient already has multiple sessions of physical therapy and taking multiple pain medications for pain control however without significant success. Patient was seen by my partner Dr. Brown physical medicine rehabilitation team and levels I referred her back to me to discuss possible surgical options. Patient states that she is in significant amount of pain, she is feeling frustrated due to the failure of conservative management. She states that the facet joint steroid injections which were helpful initially looks like wearing off. She is looking for ultimate management. I discussed the possibility of L5-S1 fusion as a last resort. I discussed the possibility of anterior approach with L5-S1 ALIF however fully disclosed that I do not have an access surgeon and want to be able to date at [facility]. I also discussed the possibility of MIS L5-S1 TLIF. I discussed all the pros and cons of both approaches. Patient demonstrated with understanding and after lengthy discussion of pros and cons she decided to progress with L5-S1 TLIF. I explained all possible complications outcomes and alternatives of the surgery including but not limited to infection, blood clot formation, pulmonary embolism, postoperative hematoma, transient or permanent nerve injury, spinal fluid leak, need for second surgery, progression of disease at the level above the fusion, hardware failure, prolonged recovery. Patient demonstrated good understanding and agreed to progress with surgery. Will start preoperative optimization process. Will obtain CT scan of the lumbar spine as well as lumbar spine AP lateral flexion-extension x-rays for preoperative planning. I will review her x-rays and CT scan during her preoperative visit. I had a lengthy discussion about the patient's condition natural history, as well as possible treatment options, alternatives, possible outcomes, and complications. Patient's all questions were answered and more detailed explanations were provided when necessary. The patient demonstrated a good understanding of the treatment plan and agreed with the proposed treatment. I encourage continuing a healthy lifestyle including regular exercises and a healthy diet. This document was generated with the aid of voice recognition software, please be aware there may be inadvertent press room supervisor errors not identified and corrected by the author. Plan Of Treatment No Information Insurance Providers Payer Name Payer Address Payer Phone Subscriber Number Group Number Insured Name Patient Relationship to Insured Coverage Start Date Coverage End Date [employer] HMO [address] [place] [address] [phone] [id number] Beata White Self - patient is the insured Medical (General) History Medical History History ICD Code asthma recurrent UTI Mantoux positive 07/20/2019 decreased hearing depressive disorder chronic lbp Surgical History Surgery Date(Month/Year) L spine surgery 2021
--- OUTSIDE RECORDS SUMMARY | 2024-08-12 10:56 | XMS_ITS | Encounter Summary ---
Author Organization [facility] Address [address] [place] [address] Care Team Providers Care Art[employer] Gun[employer] Observer Name Role Phone Courtney Bishop DO Primary Care Provider Ron Escobar NP Primary Care Provider [phone] Celina Torrez Primary Care Provider [phone] Reason for Visit * Reason Comments Appointment Encounter Details Date Type Department Care Team ([facility] st Contact Info) Description 04/15/2023 Telephone [facility] Orthopedic Surgery [address] [phone] Mariaelena Sneed MD [address] [place] [address] Appointment Social History Tobacco Use Types Packs/Day Years Used Date Smoking Tobacco: Never Assessed Intimate Partner Violence Answer Date R ecorded Fear of Current or Ex-Partner Not on file Emotionally Abused Not on file 02/02/2023 Physically Abused Not on file 02/02/2023 Sexually Abused Not on file 02/02/2023 Feel Safe at Home Not on file 02/02/2023 Comments Unknown Sex and Gender Information Value Date Recorded Sex Assigned at Not on file Legal Sex Female 1:16 PM EDT Gender Identity Not on file Sexual Orientation Not on file documented as of this encounter Miscellaneous Notes * Telephone Encounter - Alfonso Beatty LVN LPN - 04/15/2023 10:26 AM EST Informed patient this is up to her, no procedure needed if she is doing fine. Appt cancelled, sending to as an FYI. * Telephone Encounter - Beatriz Joshua - 04/15/2023 10:17 AM EST Patient called in today stating she does not want the injection for her upcoming appointment on 04.21.23 Patient states the pain has gotten better.Patient would like to know if she still needs to be seen. Patient requesting a call back. documented in this encounter Plan of Treatment Upcoming Encounters Date Type Department Care Team (Late st Contact Info) Description 08/23/2024 9:15 AM EDT Consult (Initial) [facility] [address] [place] [phone] Yari Gonzalez, PT [address] [place] [address] POST OP 08/31/2024 9:30 AM EDT Minor Procedure/Test [address] [phone] Chago Sanford, INDUSTRIAL BOILERMAKER [address] [place] [address] POST OP 09/07/2024 9:15 AM EDT Minor Procedure/Test [facility] [address] [place] [phone] Yari Gonzalez, PT [address] [place] [address] POST OP 09/14/2024 9:30 AM EDT Minor Procedure/Test [place] [address] [phone] Chago Sanford, INDUSTRIAL BOILERMAKER [address] [place] [address] POST OP 09/21/2024 9:15 AM EDT Minor Procedure/Test [facility] [address] [place] [phone] Keesha Smith, INDUSTRIAL BOILERMAKER [address] [place] [address] POST OP 09/28/2024 9:30 AM EDT Minor Procedure/Test [facility] [address] [place] [phone] Chago Sanford, INDUSTRIAL BOILERMAKER [address] [place] [address] POST OP 10/05/2024 9:15 AM EDT Minor Procedure/Test [facility] [address] [place] [phone] Yari Gonzalez, PT [address] [place] [address] POST OP 10/12/2024 9:30 AM EDT Minor Procedure/Test [facility] [address] [place] [phone] Chago Sanford, INDUSTRIAL BOILERMAKER [address] [place] [address] POST OP 10/19/2024 9:15 AM EDT Minor Procedure/Test [facility] [address] [place] [phone] Yari Gonzalez, PT [address] [place] [address] POST OP documented as of this encounter Visit Diagnoses Not on filedocumented in this encounter Care Teams [employer] Observer Relationship Specialty Start Date End Date Bishop, Courtney E, DO [facility] [address] [place] [id number] PCP - General Family Medicine 09/25/21 10/13/23 Ron Escobar, LARISA [facility] [address] [facility] [place] [id number] PCP - General Nurse Practitioner 10/14/23 02/07/24 Celina Torrez [facility] [address] [facility] [place] [address] PCP - General Family Medicine 02/08/24 documented as of this encounter
--- OUTSIDE RECORDS SUMMARY | 2024-08-12 10:56 | XMS_ITS | Clinical Summary ---
Author Organization [facility] Address [address] [place] [address] Care Team Providers Care Plater Supervisor Name Role Phone Ron Escobar NP Primary Care Provider [phone] Allergies Active Allergy Reactions Criticality Noted Date Comments Sulfamethoxazole-Trimethoprim Other (see comments) 12/07/2023 Medications fluticasone propionate (Flovent HFA) 44 mcg inhaler Flovent HFA 44 mcg/actuation aerosol inhaler Active albuterol (PROAIR HFA,VENTOLIN HFA) 90 mcg inhaler ProAir HFA 90 mcg/actuation aerosol inhaler Active gabapentin (NEURONTIN) 400 mg capsule 400 mg. 02/27/2022 Active diphenhydrAMINE (BENADRYL) 25 mg capsule Take 25 mg by mouth nightly as needed. Active baclofen (LIORESAL) 10 mg tablet Take 10 mg by mouth daily as needed for muscle spasms. Active multivitamin capsule Take 1 capsule by mouth once a day. Active diclofenac (VOLTAREN) 1% gel APPLY 2 GRAM TO THE AFFECTED AREA(S) BY TOPICAL ROUTE 4 TIMES PER DAY Active methylPREDNISol one (MEDROL DOSEPACK) 4 mg tablet Take 4 mg by mouth. 10/15/2023 Active celecoxib (CeleBREX) 100 mg capsule Take 1 capsule by mouth 2 times a day. 02/07/2023 Active hydrOXYzine HCL (ATARAX) 25 mg tablet Take 25 mg by mouth. Active cholecalciferol (VITAMIN D3) 1,250 mcg (50,000 unit) capsule Take 50,000 Units by mouth. 05/18/2023 Active cetirizine (ZyrTEC) 10 mg tablet Take 1 tablet every day by oral route. 03/07/2024 Active sodium sulfate-potassi um sulfate-magnesi um sulfate (SUPREP) solution 07/29/2024 Active Active Problems Problem Noted Date Diagnosed Date Bilateral piriformis syndrome 02/18/2022 DDD (degenerative disc disease), lumbar 02/19/20 Facet arthritis of lumbar region 02/18/2022 Myofascial pain 02/18/2022 Uterine leiomyoma 06/07/2021 Intramural and submucous leiomyoma of uterus Arthritis of left sacroiliac joint 02/25/2020 Inflammation of sacroiliac joint 02/25/2020 Lumbosacral spondylosis without myelopathy 01/20 Backache 01/20/2020 Verruca vulgaris 11/12/2019 Positive reaction to tuberculin skin test 2019 Lumbar spondylosis 07/09/2019 Decreased hearing 06/29/2019 Asthma 06/28/2019 Depressive disorder 06/28/2019 Overweight 06/28/2019 Recurrent urinary tract infection 06/28/2019 Chronic low back pain 10/06/2016 Sciatica 10/06/2016 Skin sensation disturbance 10/06/2016 Low back pain potentially associated with spinal stenosis 06/01/2006 Resolved Problems Problem Noted Date Diagnosed Date Resolved Date Uterine fibroid 08/04/2022 08/04/2022 Encounters Date Type Department Care Team Description 08/03/2024 Telephone [facility] 5th Floor [address] [place] [address] Kristina Do RN 08/02/2024 2:27 PM EST Anesthesia Event [facility] [address] [place] [address] Michel Birmingham MD 08/02/2024 2:15 PM EST - 08/02/2024 2:50 PM EST Surgery [facility] [address] [place] [address] Gricel Pantoja MD Colonoscopy, Diagnostic, with Possible Moderate Sedation [24025 (CPT??)] 08/02/2024 1:09 PM EST - 08/02/2024 4:09 PM EST Hospital Encounter [facility] [address] [place] [address] Gricel Pantoja MD Mucocele of appendix Discharge Disposition: Home or Self Care (01) 08/01/2024 Telephone [facility] [address] [place] [address] Celina Eduardo RN 07/29/2024 Prep for Case [facility] [address] [place] [address] Gricel Pantoja MD 07/28/2024 myChart Message Initial Department [address] [place] [address] Mychart, Generic Provider Questionnaire Submission 07/26/2024 12:15 PM EST Office Visit [facility] [address] [place] [address] Aircraft Log Clerk: David Perry MD Mucocele of appendix (Primary Dx) 07/26/2024 myChart Message Initial Department [address] [place] [address] Mychart, Generic Provider Questionnaire Submission 07/20/2024 Telephone [facility] [address] [place] [address] Aircraft Log Clerk: Kasandra Toribio Telephone Intake, Staff PAC Patient Request Call Back; PAC Appt Request - New 07/20/2024 Results Follow-Up [facility]ne[facility] [address] [place] [address] Aircraft Log Clerk: Audrey Alaniz MD 07/19/2024 Orders Only [facility] [address] [place] [address] Aircraft Log Clerk: Audrey Alaniz MD Mucocele of appendix (Primary Dx) 07/12/2024 12:56 PM EST - 07/12/2024 11:59 PM EST Hospital Encounter [facility] CT Scan [address] [place] [address] Adnexal mass Discharge Disposition: Home or Self Care () 07/05/2024 Orders Only [facility] Building Mammography [address] [facility], 5th [place] [address] Man Mcdonald MD 07/01/2024 myChart Message [facility] [address] [place] [address] Aircraft Log Clerk: Audrey Alaniz MD updates 07/01/2024 Orders Only [facility] [address] [place] [address] Aircraft Log Clerk: Audrey Alaniz MD Adnexal mass (Primary Dx) from Last 3 Months Immunizations Immunization Administration Dates Next Due COVID-19, Pfizer, mRNA, Biva lent Booster, PF, 30 mcg/0.3 mL dose (for age 12 y and up) 08/22/2022 Influenza, Injectable, Quadrivalent, Preservativ e Free 04/18/2021 Family History * Patient is adopted Medical History Relation Name Comments Breast cancer Neg Hx Social History Tobacco Use Types Packs/Day Years [...] 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 Not on file Not on file Last Filed Vital Signs Vital Sign Reading [...] Mass Index 23.49 08/02/2024 1:54 PM EST Plan of Treatment Upcoming Encounters Date Type Department Care Team (Latest Contact Info) Description 08/15/2024 10:00 AM EDT Appointment [facility] [address] [place] [address] 3rd [place] [address] 08/17/2024 8:15 AM EDT Hospital Encounter [facility] Operating Room [address] [place] [id number] David Recinos MD [address] [place] [address] 08/17/2024 8:15 AM EDT - 08/17/2024 10:55 AM EDT Surgery [facility] [address] [place] [address] David Recinos MD [address] [place] [phone] ROBOTIC APPENDECTOMY [72063 (CPT??)] Scheduled Procedures Name Priority Associated Diagnoses Date/Ti me ROBOTIC APPENDECTOMY Mucocele of appendix 08/17/2024 8:15 AM EDT REPAIR UMBILICAL HERNIA, INCARCERATED Mucocele of appendix 08/17/2024 8:15 AM EDT Health Maintenance Due Date Last Done Comments Cologuard 1980 FOBT / Fit Test 1980 HIV Screening 1980 Hepatitis C Screening 1980 Sigmoidoscopy 1980 Hepatitis B Vaccines (1 of 3 - 19+ 3-dose series) 1997 04/20/2009, 12/20/2008, 10/25/2008 Pneumococcal Vaccine: Pediat elbert (0-5 Years) and At-Risk Patients (6-50 Years) (2 of 2 - PCV) 07/29/2014 07/29/2013 DTaP,Tdap,and Td Vaccines (2 - Td or Tdap) 07/29/2023 07/29/2013, 08/24/2008 COVID-19 Vaccine (5 - 2023-2 5 season) 2024 03/27/2023, 03/27/2023, 08/22/2022, Additional history exists Influenza Vaccine (#1) 2024 , 06/11/2022, 04/18/2021, Additional history exists Alcohol/Substance Use Screening 06/01/2024 Depression Evaluation 06/01/2024 Social Drivers of Health Autumn ual Screening 06/01/2024 Mammogram 05/18/2025 05/18/2023, 06/10/2022 Colon Cancer Screening 08/02/2034 Colonoscopy 08/02/2034 08/02/2024, 08/02/2024 RSV Vaccine (60+ years old a nd patients) (1 - 1-dose 75+ series) 2053 Cervical Cancer Screening Discontinued Pap Smear Discontinued 12/27/2020, 12/27/2020 HPV and Pap Smear Discontinued Medical Devices Implanted Type Area Front Edger Device Identifier Shelf Expiration Date Model / Serial / Lot Microsphere Embolization Prefilled Syringe Red 500um-700um 20ml [facility] - [id number] Implanted:Qty: 1 on 04/17/2021 at [place] [id number] / / Microsphere Embolization Prefilled Syringe Red 500um-700um 20ml [facility] - [id number] Implanted:Qty: 1 on 04/17/2021 at [facility] S620 / / Microsphere Embolization Prefilled Syringe Red 500um-700um 20ml [facility] - [id number] Implanted:Qty: 1 on 04/17/2021 at [facility] S620 / / Microsphere Embolization Prefilled Syringe Red 500um-700um 20ml [facility] - [id number] Implanted:Qty: 1 on 04/17/2021 at [facility] [id number] / / Microsphere Embolization Prefilled Syringe Red 500um-700um 20ml [employer] - [id number] Implanted:Qty: 1 on 04/17/2021 at [facility] [id number] / / Microsphere Embolization Prefilled Syringe Green 700um-900um 20ml [employer] - [id number] Implanted:Qty: 1 on 04/17/2021 at [facility] [id number] / / Microsphere Embolization Prefilled Syringe Green 700um-900um 20ml [employer] - [id number] Implanted:Qty: 1 on 04/17/2021 at [facility] S820GH / / Procedures * Due to [place] state law, this organization might not be sharing negative HIV tests. Procedure Name Priority Date/Time Associated Diagnosis Comments TISSUE EXAM Routine 08/02/2024 2:50 PM EST Mucocele of appendix DC COLONOSCOPY FLX DX W/COLLJ SPEC WHEN PFRMD 08/02/2024 2:28 PM EST Mucocele of appendix COLONOSCOPY 08/02/2024 COMPREHENSIVE METABOLIC PANEL STAT 07/26/2024 1:00 PM EST Mucocele of appendix CBC AUTO DIFFERENTIAL STAT 07/26/2024 1:00 PM EST Mucocele of appendix CEA STAT 07/26/2024 1:00 PM EST Mucocele of appendix CA 125 Routine 07/26/2024 1:00 PM EST Mucocele of appendix CA 19-9 Routine 07/26/2024 1:00 PM EST Mucocele of appendix MAGNESIUM STAT 07/26/2024 1:00 PM EST Mucocele of appendix PHOSPHORUS Routine 07/26/2024 1:00 PM EST Mucocele of appendix CT ABDOMEN PELVIS W CONTRAST STAT 07/12/2024 1:56 PM EST Adnexal mass PAP Routine 12/27/2020 9:23 AM EDT Cervical cancer screening from Last 3 Months or Most Recently Relevant to Health Maintenance Results * Due to [place] state law, this organization might not be sharing negative HIV tests. * Tissue Exam (08/02/2024 2:50 PM EST) Final Diagnosis Appendix Mass, Biopsy: - Superficial fragments of colonic mucosa, within normal limits, - No evidence of cystic structure, adenomatous change or mass. - Multiple levels were examined. [facility] MANUAL 08/05/2024 12:00 PM EST [facility] at 1200 EST Clinical History Pre-op diagnosis: Preopeartive assessment - no prior colonoscopy, has large appendiceal mucocele, request assessment of the remainder of the colon to ensure no synchronous pathology [facility] MANUAL 08/05/2024 12:00 PM EST [employer] [facility] Gross Description 1. Large Intestine, Appendix, APPENDIX MASS BIOPSY The specimen is received in formalin labeled appendix mass biopsy and consists of 0.6 x 0.3 x 0.1 cm of torres tissue fragments which are entirely submitted in cassette 1A. [facility] MANUAL 08/05/2024 12:00 PM EST [employer] [facility] Gross Description User Grossing complete by Louis Gray on 08/03/2024 12:02 PM [employer] MANUAL 08/05/2024 12:00 PM EST [facility] Embedded Images [facility] 08/05/2024 12:00 PM EST [facility] Resulting Agency Case was signed out at [facility], Department of Pathology, [facility] CLIA [id number] [facility] MANUAL 08/05/2024 12:00 PM EST [employer] [facility] Report Header Surgical Pathology Report ? Case: [id number] ? Authorizing Provider: ??Gricel Pantoja MD ?Collected: ? 08/02/2024 1450 ? Ordering Location: ? [facility] ? Received: ?08/03/2024 1046 ? [facility] ? Endoscopy ? Pathologist: ? Matthew Meneses MD ? Specimen: ?Large Intestine, Appendix, APPENDIX MASS BIOPSY ? 08/05/2024 12:00 PM EST [facility] ProVation Case Yes [facility] 08/05/2024 12:00 PM EST [facility] SURGICAL CSN Component [id number] [facility] 08/05/2024 12:00 PM EST [facility] Tissue Appendix structure / Unknown 08/02/2024 2:50 PM EST 08/03/2024 10:46 AM EST Comment:Pre-op diagnosis: Preopeartive assessment - no prior colonoscopy, has large appendiceal mucocele, request assessment of the remainder of the colon to ensure no synchronous pathology Result [facility] Gricel Pantoja MD LAB PATHOLOGY/CYTOLOGY DARLENE JACOBS Final Result [facility] [address] [place] [address], * COLONOSCOPY (08/02/2024) Narrative Procedure Note Gricel Pantoja MD - 08/02/2024 2:[address] [facility] Gastroenterology Patient Name: Beata White Procedure Date: 08/02/2024 2:22 PM Date of : 1980 Admit Type: Outpatient Age: 44 Room: [place] [address] Gender: Female Note Status: Finalized Attending MD: [...] concerns please do not hesitateto call the [facility]. Attending Participation: I personally performed the entire procedure. Gricel Pantoja MD 08/02/2024 3:05:41 PM This report has been signed electronically. Number of Addenda: 0 Note Initiated On: 08/02/2024 2:22 PM us Gricel Pantoja MD [employer] PROCEDURES Final Result * CBC Auto Differential (07/26/2024 1:00 PM EST) WBC 7.1 3.8 - 10.8 10*3/uL 07/26/2024 1:18 PM EST [facility] RBC 4.19 3.80 - 5.10 10*6/uL 07/26/2024 1:18 PM EST [facility] Hemoglobin 12.6 11.7 - 15.5 g/dL 07/26/2024 1:18 PM EST [facility] Hematocrit 38.2 35.0 - 45.0 % 07/26/2024 1:18 PM EST [facility] MCV 91.2 80.0 - 100.0 fL 07/26/2024 1:18 PM EST [facility] MCH 30.1 27.0 - 33.0 pg 07/26/2024 1:18 PM EST [facility] MCHC 33.0 32.0 - 36.0 g/dL 07/26/2024 1:18 PM EST [facility] RDW 12.4 11.0 - 15.0 % 07/26/2024 1:18 PM EST [facility] Platelets 245 140 - 400 10*3/uL 07/26/2024 1:18 PM EST [facility] MPV 11.3 7.5 - 12.5 fL 07/26/2024 1:18 PM EST [facility] Neutrophil % [...] - 7.80 10*3/uL 07/26/2024 1:18 PM EST [employer] [facility] LAB[facility] Blood Structure of peripheral vein / Unknown Venipuncture / Unknown 07/26/2024 1:00 PM EST 07/26/2024 1:14 PM EST David Recinos MD LAB BLOOD ORDERABLES Final Result Performing Organization Address [facility] Co de Phone Number [facility] [address] [place] [address], [place] * CA 19-9 (07/26/2024 1:00 PM EST) CA 19-9 15 <34 U/mL 07/28/2024 9:42 AM EST [employer] [facility] Comment: This test was performed using the Siemens chemiluminescent method. Values obtained from different assay methods cannot be used interchangeably. CA 19-9 levels, regardless of value, should not be interpreted as absolute evidence of the presence or absence of disease. Blood Structure of peripheral vein / Unknown Venipuncture / Unknown 07/26/2024 1:00 PM EST 07/26/2024 1:30 PM EST Narrative [facility] 07/28/2024 9:42 AM EST [facility] Received Date:[id number] David Recinos MD LAB BLOOD ORDERABLES Final Result Performing Organization Address City/[facility] Co de Phone Number [facility] [address] [facility] 3rd Floor, [place] [address], [place] [phone] [employer] [facility] [address] [facility] [address]rd [address], [place] [address], [place] [phone] * CA 125 (07/26/2024 1:00 PM EST) CA 125 10 <35 U/mL 07/27/2024 8:46 AM EST [employer] [facility] Comment: This test was performed using the Siemens Chemiluminescent method. Values obtained from different assay methods cannot be used interchangeably. CA 125 levels, regardless of value, should not be interpreted as absolute evidence of the presence or absence of disease. Blood Structure of peripheral vein / Unknown Venipuncture / Unknown 07/26/2024 1:00 PM EST 07/26/2024 1:29 PM EST Narrative [facility] - 07/27/2024 8:46 AM EST [facility] Received Date: us David Recinos MD LAB BLOOD ORDERABLES Final Result Performing Organization Address City/[facility]/ZIP Co de Phone Number [facility] [address]rd Floor, [place] [address], [place] [phone] [facility] [employer] [address] [facility], [place] [address], [place] [phone] * Phosphorus (07/26/2024 1:00 PM EST) Phosphorus 3.3 2.5 - 4.5 mg/dL 07/26/2024 2:24 PM EST [facility]OLOG[facility] LAB[facility] Blood Structure of peripheral vein / Unknown Venipuncture / Unknown 07/26/2024 1:00 PM EST 07/26/2024 1:14 PM EST us David Recinos MD LAB BLOOD ORDERABLES Final Result [employer] [facility] CL[facility] LAB[facility]ORY [address] [place] [address], * Magnesium (07/26/2024 1:00 PM EST) MG 2.0 1.6 - 2.4 mg/dL 07/26/2024 2:24 PM EST [facility] LAB[facility] Blood Structure of peripheral vein / Unknown Venipuncture / Unknown 07/26/2024 1:00 PM EST 07/26/2024 1:14 PM EST us David Recinos MD LAB BLOOD ORDERABLES Final Result Performing Organization Address [facility] Co de Phone Number [facility] [address] [place] [address] * CEA (07/26/2024 1:00 PM EST) CEA <0.6 <=3.7 ng/mL 07/26/2024 2:25 PM EST [facility] Comment: Smokers Reference Range: ?? <5.5 ng/mL This test was performed using Arian electrochemiluminescence immunoassay method. Values obtained by different assay methods cannot be used interchangeably. Blood Structure of peripheral vein / Unknown Venipuncture / Unknown 07/26/2024 1:00 PM EST 07/26/2024 1:14 PM EST David Recinos MD LAB BLOOD ORDERABLES Final Result Performing Organization Address [facility] de Phone Number [facility] [address] [place] [address], * Comprehensive metabolic panel (07/26/2024 1:00 PM EST) Pathologist [facility] NA 140 135 - 145 mmol/L 07/26/2024 2:24 PM EST [facility] K 4.2 3.5 - 5.3 mmol/L 07/26/2024 2:24 PM EST [facility] Cl 103 98 - 107 mmol/L 07/26/2024 2:24 PM EST [facility] CO2 27 22 - 32 mmol/L 07/26/2024 2:24 PM EST [facility] Anion Gap 10 5 - 15 07/26/2024 2:24 PM EST [facility] Glucose 88 65 - 99 mg/dL 07/26/2024 2:24 PM EST [facility] Creatinine 0.77 0.50 - 1.20 mg/dL 07/26/2024 2:24 PM EST [facility] Calcium 9.5 8.6 - 10.5 mg/dL 07/26/2024 2:24 PM EST [facility] Total Protein 6.9 6.0 - 8.0 g/dL 07/26/2024 2:24 PM EST [facility] Albumin 4.3 3.5 - 5.2 g/dL 07/26/2024 2:24 PM EST [facility] Bilirubin, Total 0.3 0.2 - 1.2 mg/dL 07/26/2024 2:24 PM EST [facility] Alkaline Phosphatase 69 35 - 129 U/L 07/26/2024 2:24 PM EST [facility] AST 22 10 - 40 U/L 07/26/2024 2:24 PM EST [facility] ALT 28 10 - 40 U/L 07/26/2024 2:24 PM EST [facility] BUN 12 7 - 23 mg/dL 07/26/2024 2:24 PM EST [facility] eGFR >90 >=60 mL/min/1. 73m2 07/26/2024 2:24 PM EST [facility] Comment:The estimated glomer ular filtration rate (eGFR) is calculated using a new formula developed by the NKF-ASN task force to eliminate race-based correction factors. The new formula uses serum/plasma creatinine, age, and gender to determine eGFR. A value below 60mls/min might indicate kidney disease and will be flagged. For additional information, see Corinne et al, Am J Kidney Dis. 2021;79(2):268- 288, A Unifying Approach for GFR estimation: Recommendations of the NKF-ASN Task Force on Reassessing the Inclusion of Race in Diagnosing Kidney Disease . Globulin, Total 2.6 2.1 - 4.2 g/dL 07/26/2024 2:24 PM EST [facility] A/G Ratio 1.7 1.5 - 3.0 07/26/2024 2:24 PM EST [employer] [facility] Blood Structure of peripheral vein / Unknown Venipuncture / Unknown 07/26/2024 1:00 PM EST 07/26/2024 1:14 PM EST us David Recinos MD LAB BLOOD ORDERABLES Final Result [facility] [address] [place] [address], [place] * CT Abdomen Pelvis W Contrast (07/12/2024 1:56 PM EST) Anatomical Region Laterality Modality Body Computed Tomogra phy 07/12/2024 2:20 PM EST Impressions 07/12/2024 2:55 PM EST Relatively large appendiceal mucocele. Although the appendix appears intact, there is a small fat-containing paraumbilical hernia which also contains a 1.3 cm fluid density structure that could potentially represent a mucin deposit. Surgical oncology consultation is recommended. A(n) Yellow actionable finding has been communicated to the ordering or responsible provider via the [employer] system on 07/12/2024 2:54 PM. ??Receipt of this communication by the responsible provider will be documented in [employer] upon receiving acknowledgement if applicable, Message ID [id number]. If this radiology report contains a blank impression section, it is an incomplete radiology report. ??Please contact the interpreting radiologist or applicable radiology division as soon as possible to obtain the completed interpretation. ? Workstation ID: [id number] Up-to-date CT equipment and radiation dose reduction techniques were employed. CTDIvol: 13.4 mGy. DLP: 651 mGy-cm. Narrative 07/12/2024 2:55 PM EST EXAMINATION: CT ABDOMEN PELVIS W CONTRAST INDICATION: Right lower quadrant mass seen on ultrasound and lumbar MRI at outside hospital. TECHNIQUE: Images of the abdomen and pelvis were obtained with intravenous contrast. Coronal and sagittal reformats were generated. COMPARISON: CT urogram from 12/21/2023. ?? FINDINGS: LOWER THORAX: The visualized lung bases are clear. HEPATOBILIARY: A subcentimeter hypodensity in the right hepatic lobe is too small to characterize. Patent portal and hepatic veins. Normal gallbladder. No biliary ductal dilatation. SPLEEN: No splenomegaly. PANCREAS: No focal masses or ductal dilatation. ADRENAL GLANDS: No adrenal nodules. KIDNEYS/URETERS: No hydronephrosis, calculi, or solid mass lesions. GI TRACT: Dilated appendix measuring up to 2.9 cm in caliber, up to 10 cm in length. No bowel obstruction. PERITONEUM/RETROPERITONEUM: No ascites or free air. There is a small paraumbilical hernia containing fat and a 1.3 cm fluid density structure that could potentially represent a mucin deposit (series 4, image 632; series 5, image 11). Otherwise, no peritoneal nodules or mucin deposits identified. LYMPH NODES: No lymphadenopathy. VESSELS: Unremarkable. PELVIC ORGANS/BLADDER: Status post hysterectomy. Left ovarian corpus luteum. Unremarkable right ovary. Unremarkable bladder. BONES AND SOFT TISSUES: Endplate degenerative changes at L5-S1. No suspicious lytic or blastic osseous lesion is identified. Resulting Agency Comment [id number] Audrey Orozco MD IMG CT PROCEDURES Edited Result - Final * Pap (12/27/2020 9:23 AM EDT) Specimen Adequacy Satisfactory for evaluation, endocervical/cool sformation zone component absent [facility] MANUAL 1 2:16 PM EDT [employer] [facility] Pathologist Cytology Interpretation Negative for intraepithelial lesion or malignancy. [facility] MANUAL 1 2:16 PM EDT [employer] [facility] at 1416 EDT Comment:This is the result o f a morphological screening test with an inherent possibility of a false negative interpretation. Patron Attendant Statement This Pap test was examined by the [employer] [employer] [facility], [employer], [place], [place]. This Pap test was examined in accordance with the [facility] Cytopathology Laboratory written policy, which incorporates all CLIA mandates. Screening guidelines can be found in Am J Clin Pathol 2012;137:516-542. We endorse the practice guidelines developed by ASCCP and published in the Journal Lower Genital Tract Disease 17(5):S1-S27 (2013). [facility] MANUAL 1 2:16 PM EDT [facility] Clinical History screening [facility] MANUAL 1 2:16 PM EDT [facility] Resulting Agency Case was signed out at [facility], Department of Pathology, [employer] 3 CLIA [id number] [facility] MANUAL 1 2:16 PM EDT [facility] Report Header Gynecologic Cytology Report ? Case: [id number] ? Authorizing Provider: ??Jessy Velasquez ?Collected: ? 12/27/2020 0923 ? Ordering Location: ? [facility] ? Received: ?12/27/2020 1034 ? [facility] ? Obstetrics and Gynecology ? First Screen: ?Ozzie Huizar ? Specimen: ?Screening ThinPrep Pap, Cervix/Endocervix ? 2:16 PM EDT [facility] Brushing Cervix uteri structure / Unknown Non-Blood Collection / Unknown 12/27/2020 9:23 AM EDT 12/27/2020 10:34 AM EDT us Jessy Velasquez MD LAB PATHOLOGY/CYTOLOGY ORDERA BLES Final Result [facility] [address] [place] [address], from Last 3 Months or Most Recently Relevant to Health Maintenance Insurance [facility] HMO/POS [facility] HMO/POS Member Subscriber Plan / Payer (Ef fective 2004-Present) Name:Beata White Relation to Subscriber:Spouse Name:ISSA PAREDES Date of :1900 (Home) Address: [address] [place] [address] [address] [place] [address] Payer ID:[id number] (NAIC) Type:Not on file Address: [facility] [id number] [place] [id number] Advance Directives * Full Code (Latest Code Status on File) Date Activated Date Inactivated Comments 08/04/2022 8:30 AM 08/04/2022 9:04 PM Healthcare Agents on File Name Relationship Healthcare Agent [facility] Communication Issa Paredes Other Alternate Health Care Agent Jorge Lugo [facility] Health Care Agent Care Teams Plater Supervisor Relationship Specialty Start Date End Date Ron sEcobar NP [address] [facility] [place] [address] PCP - General 11/24/23
--- OUTSIDE RECORDS SUMMARY | 2024-08-12 10:56 | XMS_ITS | Encounter Summary ---
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 Not on file Not on file documented as of this encounter Plan of Treatment Upcoming Encounters Date Type Department Care Team (Latest Contact Info) Description 08/15/2024 10:00 AM EDT Appointment [facility] [address] [facility] [address]rd [place] [address] 08/17/2024 8:15 AM EDT Hospital Encounter [facility] [address] [place] [phone] David Recinos MD [address] [place] [phone] 08/17/2024 8:15 AM EDT - 08/17/2024 10:55 AM EDT Surgery [facility] [address] [place] [phone] David Recinos MD [address] [place] [phone] ROBOTIC APPENDECTOMY [92144 (CPT??)] Scheduled Procedures Name Priority Associated Diagnoses Date/Ti me ROBOTIC APPENDECTOMY Mucocele of appendix 08/17/2024 8:15 AM EDT REPAIR UMBILICAL HERNIA, INCARCERATED Mucocele of appendix 08/17/2024 8:15 AM EDT documented as of this encounter Visit Diagnoses Not on filedocumented in this encounter Care Teams Bilingual Speech Therapist Relationship Specialty Start Date End Date Ron Escobar NP [address] [place] [address] PCP - General 11/24/23 documented as of this encounter
--- OUTSIDE RECORDS SUMMARY | 2024-08-12 10:56 | XMS_ITS | Data Portability ---
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 Children Do You Have? 1 1 Son Information not available 04/21/2023 Have You Ever Been Counseled For Unhealthy Alcohol Use? No Information not available 04/21/2023 Do You Have Any Pets? No Information not available 04/21/2023 What Is Your Relationship Status? Information not available 04/21/2023 Do You Use Your Seat Belt Or Car Seat Routinely? Yes Information not available 04/21/2023 Are You Sexually Active? No Information not available 04/21/2023 Do You Have Smoke And Carbon Monoxide Detectors In Your Home? Yes Information not available 04/21/2023 Do You Or Have You Ever Used Smokeless Tobacco? Never Used Smokeless Tobacco Information not available 07/04/2019 Are There Any Smokers In Your House? No Information not available 04/21/2023 How Much Tobacco Do You Smoke? No Information not available 06/20/2019 Do You Participate In Social Media? Yes [email or web address] Information not available 04/21/2023 Do You Feel Stressed (tense, Restless, Nervous, Or Anxious, Or Unable To Sleep At Night)? [id number] Information not available 04/21/2023 Do You Use Any Illicit Or Recreational Drugs? No Information not available 04/21/2023 Do You Use Sunscreen Routinely? Yes Information not available 04/21/2023 Has Tobacco Cessation Counseling Been Provided? No Information not available 04/21/2023 Are You Currently In School? No Information not available 04/21/2023 Do You Have Any Dietary Restrictions? No Information not available 04/21/2023 Sex: Female Functional Status Question Answer Note LastModified by Organizat ion Details LastModified Time Do you have difficulty walking or climbing stairs? No Information not available 04/21/2023 Are you able to walk? YESWOREST Information not available 04/21/2023 Do you have difficulty doing errands alone? No Information not available 04/21/2023 Do you have difficulty dressing or bathing? No Information not available 04/21/2023 What is your exercise level? Moderate Information not available 04/21/2023 Mental Status Question Answer Note LastModified by Organization D etails LastModified Time Do you have difficulty concentrating, remembering or making decisions? No oswald Information no t available 04/21/2023 Family History Nothing Reported Notes:she is adopted (please keep confidential--son does not know) Medical History Condition Response HIV or AIDS N Gout N bladder / kidney infection(s) Y congenital heart disease N Hyperthyroidism N lightheaded/dizzy N asthma N defibrillator N cardiomyopathy N use of alcohol or drugs? N ulcers N carotid artery disease N ADD N COPD N pneumonia N nasal allergies N problems with eyes/vision N heart problems, murmurs N sleep apnea N problems with ears/hearing Y insomnia N peripheral vascular disease N cardiac stents N serious illness or medical conditions N congestive heart failure N chickenpox Y anxiety disorder N Rheumatoid Arthritis N Fibromyalgia N arthritis N hospitalizations N tuberculosis N autoimmune disease N taking blood thinners N depression N high blood pressure N kidney disease N PTSD N atrial fibrillation N scarlet fever N heartburn N liver disease N breast problem N pulmonary disease N arrhythmia N sarcoidosis N heart disease N heart attack N Bleeding Disorder N metal implants N defects or inherited disease N bed-wetting (after 5 years old) N serious injuries or accidents N CVA/stroke N hepatitis N Pulmonary Embolism N bleeding disorders Y varicosities N glaucoma N Hypothyroidism N pacemaker N coronary artery disease N other GI illness N GERD / reflux N obesity N frequent headaches/migraines N cardiac by-pass N diabetes Y 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 cardiovascular acccident N seizures N bronchitis Y frequent abdominal pain N angina N epilepsy N pulmonary fibrosis (scarring) N frequent ear infections N ADHD N other N nausea/vomiting N thyroid disease or other endocrine probl ems N heart valve surgery N high cholesterol N constipation N cancer N Anemia N blood clots N psychiatric illness N emphysema / COPD N osteopenia/osteoprosis N anemia or bleeding problems N infertility N valve disease N anesthesia allergy/complications N lung disease N skin condition N endometriosis N rheumatic fever N Diverticulitis N chronic or recurrent skin problems (acne /eczema) N restless legs N urinary tract infection N Reflux/GERD N pulmonary embolism (blood clot) N convulsions or other neurological proble ms N headaches or migraines Y blood transfusion(s) N stroke N Osteoporosis N Gynecological History Statement/Question Response Breast Biopsy N Date of LMP 01/02/2020 Para 1 Living children 1 History of abnormal pap Yes 2010 Ovarian Cysts N D & C Y Duration of Flow (days) 2 Abortions elective Contraception Paragard Frequency of Cycle (Q days) 30 Genital Herpes N Fibroids N Hysterectomy none Para 1 Gonorrhea/Chlamydia No Date of Last Pap Smear 12/27/2020 Obstetrics History GPAL:G 1 P 1 0 1 1 Type Value Full Term 1 Induced 1 Living 1 Total 1 Immunizations Vaccine Type Date Status Note Provider Nam e and Address Organization Details Recorded Time Hep B, unspecified formulation 9 completed GRETCHEN HORN, LARISA [address] [facility] [place], [address], [facility] 04/21/2023 05:27:10 Hep B, unspecified formulation 9 completed GRETCHEN HORN, LARISA [address] [facility] [place], [address], [facility] 04/21/2023 05:27:10 Hep B, unspecified formulation 9 completed GRETCHEN HORN, LARISA [address] [facility] [place], [address], [facility] 04/21/2023 05:27:10 Influenza, split virus, quadrivalent, preservative 7 completed GRETCHEN HORN, LARISA [address] [facility] [place], [address], [facility] 04/21/2023 05:27:09 Influenza, split virus, quadrivalent, preservative 2 completed GRETCHEN HORN, LARISA [address] [facility] [place], [address], [facility] 04/21/2023 05:27:09 Influenza, split virus, quadrivalent, preservative 2 completed GRETCHEN HORN, LARISA [address] [facility] [place], [address], [facility] 04/21/2023 05:27:09 Influenza, split virus, quadrivalent, preservative 3 completed GRETCHEN HORN, LARISA [address] [facility], [place], [address], [facility] 04/21/2023 05:27:09 MMR 9 completed GRETCHEN HORN, MILITARY NURSE [address] [place] [address], [place], [address], [facility] 04/21/2023 05:27:10 MMR 9 completed GRETCHEN HORN, LARISA [address] [place] [address] [place], [address], [facility] 04/21/2023 05:27:10 pneumococcal polysaccharide PPV23 4 completed GRETCHEN HORN, LARISA [address] [place] [address] [place], [address], [facility] 04/21/2023 05:27:10 Td(adult) unspecified formulation 9 completed GRETCHEN HORN, LARISA [address] [place] [address] [place], [address], [facility] 04/21/2023 05:27:10 Tdap 4 completed GRETCHEN HORN NP [address] [place] [address] [place], [address], [facility] 04/21/2023 05:27:10 Influenza, split virus, quadrivalent, PF 8 completed GRETCHEN HORN NP [address] [place] [address] [place], [address], [facility] 04/21/2023 05:27:10 COVID-19, mRNA, LNP-S, PF, 30 mcg/0.3 mL dose 1 completed GRETCHEN HORN NP [address] [place] [address], [place], [address], [facility] 04/21/2023 05:27:10 Influenza, MDCK, quadrivalent, PF 9 completed GRETCHEN HORN NP [address] [place] [address], [place], [address], [facility] 04/21/2023 05:27:10 Influenza, split virus, quadrivalent, PF 1 completed GRETCHEN HORN, LARISA [address] [facility], [place], [address], [facility] 04/21/2023 05:27:10 COVID-19, mRNA, LNP-S, PF, 100 mcg/0.5mL dose or 50 mcg/0.25mL dose 1 completed GRETCHEN HORN, LARISA [address] [facility], [place], [address], [facility] 04/21/2023 05:27:10 COVID-19, mRNA, LNP-S, PF, 100 mcg/0.5mL dose or 50 mcg/0.25mL dose 1 completed GRETCHEN HORN NP [address] [place] [address] [place], [address], [facility] 04/21/2023 05:27:10 Vaccinia, smallpox Mpox vaccine live, PF, SQ or ID injection 2 completed GRETCHEN HORN NP [address] [place] [address] [place], [address], [facility] 04/21/2023 09:52:50 Vaccinia, smallpox Mpox vaccine live, PF, SQ or ID injection 2 completed GRETCHEN HORN NP [address] [place] [address], [place], [address], [facility] 04/21/2023 09:52:50 COVID-19, mRNA, LNP-S, bivalent, PF, 30 mcg/0.3 mL dose 3 completed GRETCHEN HORN NP [address] [place] [address], [place], [address], [facility] 04/21/2023 09:52:50 Influenza, MDCK, quadrivalent, PF 3 completed GRETCHEN HORN NP [address] [place] [address], [place], [address], [facility] 04/21/2023 09:53:02 COVID-19, mRNA, LNP-S, PF, mylene-sucrose, 30 mcg/0.3 mL 3 completed GRETCHEN HORN, LARISA [address] [place], [address], [facility] 04/21/2023 09:53:02 Influenza, split virus, quadrivalent, PF 3 completed Courtney nelson do [address] [place], [address], [facility] 06/14/2022 12:59:09 Past Encounters Encounter ID Performer Location Encounter Start Date Encounter Closed Date Diagnosis/Indication Diagnosis SNOMED-CT Code Diagnosis ICD10 Code Diagnosis Note [id number] Courtney nelson , [facility] [address] [facility] [address] [place] [address] 06/20/2019 10:46:49 06/20/2019 12:21:35 Asthma [id number] J45.909 she reports that she uses her inhaler 1-2x/month generally; however, her allergies make her asthma worse. She reports she takes a benadryl every night. Will try montelukas t Recurrent urinary tract infection 091252459 N39.0 She reports a hx of recurrent UTIs over the past year that would occur after sexual intercours e. She reports that she practiced good hygiene, and urinates post-inter course. SHe reports she also gets frequent yeast infections . She is requesting a pier hand referral Decreased hearing 661934 001 H91.92 She reports 8 year history of hearing loss. She reports severe allergies that make her feel like her ears are consistent ly blocked. She would like to start with a hearing test, and if warranted, may consider referral to ENT. Chronic low back pain 27 4780856 M54.5 She reports that she has had back pain for 12 years. She was diagnosed with sciatica; has done PT she reports now a feeling of burning and stretching ---she feels like there is an electric current going down to her feet. She feels it most on the left side, but has this feeling on the right side as well. She has done electric-a cupuncture with good success, she reports PT has aggravated the symptoms She states that she had taken multiple medication s prior and hasn't found any relief, so she no longer takes any meds for it. She reports that it interferes with her sleep. Will refer to pain specialist Depressive disorder 5613 6314 F32.0 She now feels that she has mild depression (discussed PHQ-9: score: 6). She reports that she feels overwhelme d. She states that back in 2013 her depression was really bad, stating that she lost interest in everything . She reports that she got better through reading spiritual books and going for walks. She reports she does not want to take any medication s at this time. She would like to try therapy. 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 Overweight [id number] E66 .3 Her BMI is 25.4. She states that due to her back pain, she has not been able to be as active as she would like. She reports following a healthy diet. We have discussed the adverse health consequenc es of obesity today as well the benefits of weight loss. We have focused on both diet and exercise management strategies in our discussion today. Will continue to monitor and assess. [id number] Jordon Oleary MD [facility] [address] [place] [address] [place] [address] 07/04/2019 09:50:04 07/04/2019 11:13:01 Lumbar spondylosis [id number] M47.896 Spinal chyna nosis of lumbar region 07215575 M48.061 Sacroiliac joint pain 20 8970859 M53.3 b/l [id number] Zacarias Garcia MD [facility] [address] [facility], [address] [place] [address] 07/14/2019 14:00:03 07/14/2019 15:16:46 Vaginitis 49911097 N76.0 -f/u NuSwab -tx as appropriat e -recommend ed proboitic [id number] Jordon Oleary MD [facility] [address] [place], [place] [address] 07/15/2019 08:44:40 07/15/2019 09:17:49 Lumbar spondylosis 901664534 M47.896 Sacroiliac joint pain 20 4658593 M53.3 b/l Degenerati on of lumbar intervertebral disc 78641648 M51.36 [id number] MD [facility] [address] [place] [address] 08/04/2019 15:53:27 08/04/2019 17:09:09 Lumbar spondylosis 413912868 M47.896 Sacroiliac joint pain 20 6723015 M53.3 b/l Degenerati on of lumbar intervertebral disc 76107710 M51.36 Lumbar radiculopathy 128 510807 M54.16 b/l Prolapsed lumbar intervertebral disc 463698765 M51.26 L5S1 [id number] Arturo Logan III, MD [facility] [address] [place] [address] 08/18/2019 11:12:17 08/18/2019 12:58:05 Influenza-like illness 03690592 B34.9 Influenza caused by Influenza A virus [id number] J09.X2 Patient is a 39 y.o. female who presented here today with cough, fever, body aches and sore throat. NO SOB. No recent travels or known exposure to COVID-19. On exam, LS clear. Throat and TMs WNL. We tested her for flu and it's positive for flu A. Will start her on anti viral medication . Also discussed supportive care with rest, fluids, tylenol/ib uprofen PRN. Out of work until fever free for 24 hours. Follow up PRN. [id number] Courtney nelson ,do [facility] [address] [facility] [address] [place] [address] 08/26/2019 12:17:13 08/26/2019 13:14:17 Chronic low back pain 603719224 M54.5 I reviewed Beata's recent imaging. Based on her exam and her HPI, I suspect that this is muscular (spasmodic ) in nature. I spoke with Dr. Oleary's staff and clarified the misunderst anding. XTLiddo patches were prescribed from Dr. Oleary--gi phyllis samples. They gave 3 more boxes today. I prescribed medrol and baclofen. If no improvemen t with this, will consider repeat imaging. [id number] Courtney mezazgerald do [facility] [address] [place] [address] [address] [place] [address] 11/02/2019 11:38:03 11/02/2019 14:04:52 Verruca vulgaris 20352826 B07.9 Recurrent wart on upper lip--will refer to derm. She has tried OTC agents with some improvemen t. [id number] Awa Garcia MD [facility] [address] [place] [address] [place] [address] 06/14/2020 18:20:37 06/14/2020 18:21:28 Viral screening 537059849 Z11.59 [id number] Arturo Logan III, MD [facility] [address] [place], [place] [address] [place] [address] 04/22/2021 17:53:49 04/22/2021 19:48:07 Low back pain 081978298 M54.50 40-year-ol d female with severe lower back pain on the right side, this is a chronic issue that has been exacerbate d status post her procedure at [facility] to treat uterine fibroids. Patient unable to tolerate opioids for pain that she was prescribed status post procedure and also finds NSAIDs such as Naprosyn and diclofenac ineffectiv e for treating her pain. Patient requests steroid treatment and I have discussed risks versus benefits with her as regards a prednisone burst. Patient states understand ing and agrees to treatment as below and states is aware of risks and still prefers treatment as below for her pain for her back pain. I have advised her I will prescribe as below with understand ing that she is to go to ER if develops abdominal pain, vaginal bleeding, or if her back pain is worsening. F/u with PCP or her pain specialist in 5-7 days if symptoms persist or sooner if new or worsening symptoms develop. Counseled on signs/symp toms requiring immediate ER evaluation . Over 45 minutes spent with patient discussing her history and her plan of care. [id number] Courtney do sreekanth [facility] [address] [place] [address] [place] [address] 05/21/2021 10:00:04 05/21/2021 13:29:14 Uterine leiomyoma 92523356 D25.9 She was admitted on 04/17/2021 for uterine fibroid embolizati on procedure. She had a MRI on 05/17/21 that showed devascular ization of multiple uterine fibroids. She has not had any abdominal pain since the surgery. Low back pain 063368286 M54.50 She is followed by specialist at [facility]. She has an appt 06/06/2020.E butch since her surgery she has had lower back pain. She requested that I order an MRI; however, I advised that since she is seeing a specialist that they should be the one ordering the diagnostic s.Will give steroids and muscle relaxer to help with symptoms; possible side effects discussed. [id number] Courtney nelson ,do [facility] [address] [place] [address] [address] [place] [address] 12/03/2021 08:59:50 12/03/2021 09:36:09 Adult health examination 056238895 Z00.01 Patient should discuss medical decisions with Health Care Proxy. Recommende d screenings included colonoscop y screening age 45, earlier based on family history/ri sk factors; annual mammogram age 50, unless earlier based on risk factors and discussion with patient; bone density age 65, unless risk factors for earlier screening; one time screen for hepatitis C if born between 1558-9514 or has risk factors. Reviewed vaccines and current recommenda tions. Basic health topics include aerobic exercise, importance of healthy/ba lanced diet and minimizing caffeine and alcohol. last pap 09/2017-nor mal with negative co-testwe do not have a record of her last mammogram. Will order. Screening mammography 24 830681 Z12.31 Asthma 386764915 J45.90 9 Stable. uses rescue inhaler fewer than 3x/month. Overweight 235874345 E66 .3 Her BMI is 25.4. We have discussed the adverse health consequenc es of obesity today as well the benefits of weight loss. We have focused on both diet and exercise management strategies in our discussion today. Will continue to monitor and assess. Depressive disorder 0201 9005 F32.0 She now feels that she has mild depression (discussed PHQ-9: score: 5). No interest in medication or therapy at this time. Denies SI/HI. Lumbosacra l spondylosis without myelopathy 83573046 M47.817 Well-contr olled with gabapentin 300 mg at HS.She has an appt with new pain doctor/Dr. Sneed on 12/25/21. Candidiasis of vagina 72 305526 B37.3 Will send diflucan. She will call if no improvemen t of symptoms. [id number] Violette Garcia MD [facility] [address] [place] [address] 01/13/2022 17:41:31 01/13/2022 18:34:04 Pleuritic pain 6151286 R07.81 Pt presents with fatigue, nausea, intermitte nt lightheade dness, pain with breathing in deep in left sidevital stable, lungs CTA b/l, in nad, chest tenderness along b/l anterior chest, notes it does not feel the same as the pain with breathing in deep, otherwise normal examDif Dx: COVID vs PNA vs bronchitis vs sinusitis vs less likely PEperc negative low risk wells however given pleuritic chest pain that is NOT reproducib le on exam along with recent covid infection will obtain d-dimer to help r/o PECXR: normalD-Di johnathan normalDisc ussed with patient sx likely d/t recent covid infection. Advised rest, increase hydration ibuprofen/ tylenol for inflammati on relief along with sinus rinses, sudafed. low threshold to go to ER should sx worsen, develop sob, fever, worsening dizziness. pt in agreement with plan [id number] Courtney nelson ,do [facility] [address] [place] [address] [address] [place] [address] 06/11/2022 17:29:54 06/11/2022 19:43:05 Lumbosacral spondylosis without myelopathy 28435906 M47.817 Not well controlled . She reports that she does OK during the day, but if she has to sit for long periods or lie down, she has a lot of pain. She does not sleep well.Will increase to gabapentin 600mg/nigh t. She will call me to let me know how this is working. Uterine leiomyoma 690715 05 D25.9 She has decided to have a hysterecto my on 08/04/2022 at [facility]. They will leave ovaries. Influenza vaccine needed [id number] 106 Z28.39 [id number] Courtney nelson , [facility] [address] [facility], [address] [place] [address] 12/16/2022 09:50:05 12/16/2022 12:05:44 Chronic low back pain 286376986 M54.50 Beata denies new injury since her last MRI.Will check autoimmune labs.Will refer based on those results.Wi ll trial celebrex.S he wants a formal diagnosis. She will also try OMT. [id number] Courtney nelson , [facility] [address] [facility], [address] [place] [address] 12/22/2022 12:47:40 12/22/2022 14:34:11 Chronic low back pain 509204542 M54.50 After a thorough history and physical exam, it was determined that Beata would benefit from OMT. Somatic dy sfunction of lumbar region 326021125 M99.03 Beata responded well to OMT. She insists that exercises/ stretches seem to make her symptoms worse. Myofascial syndrome? No exercises given. Myalgia/my ositis - multiple 107160518 M79.10 I injected approximat wally 10ml of lidocaine in TPs scattered along the paraverteb ral muscles of his lumbar region with good therapeuti c results. Somatic dy sfunction of sacral spine 292201167 M99.04 Somatic dy sfunction of pelvic region 273662845 M99.05 [id number] Jessica Colbert MD [facility] [address] [place] [address] 01/15/2023 14:50:57 01/15/2023 16:26:06 Chronic low back pain 252732686 M54.50 I will review SI joint xrays from 2019. Will try to review MRI pelvis 2020 with radiology (Dr. Beltran) to assess for sacroiliit is. Study was done outside the system, so we may have to get a copy on a disc. Will consider MRI SI joints. Check HLA B27 and CRP today.Try alternate NSAID, as she has had some response to Celebrex. See if we can get a better response with Meloxicam. Consider referral to Dr. Oleary for trial of SI injections .Follow up 1 month. 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 It is bilateral but left SI> right.We discussed the condition and symptoms in detailWe discussed management for such: NSAIDS, trial GC injections and biologics if the first two options failShe has seen [place] onal pain management , in the past. Her last visit was therese lo 1.5 years ago. She does have an upcoming visit this fall. She will inquire about SI joint injections .I offered a trial of an office TP injection to the regions but she declines.A s she has had some success with the Celebrex, she will remain on this. She could consider increasing the dose temporaril y up to 2 tablets twice daily. Risks and benefits of NSAIDs were reviewed.F ajit, I would like to obtain an MRI of the sacroiliac joints to assess for early inflammato ry changes. She agrees to such. We will follow-up in June 2023 at which time we will obtain an NSAID monitoring labs. She expresses understand ing and agreement with the plan. [id number] Courtney nelson , [facility] [address] [place] [address] [address] [place] [address] 04/21/2023 09:30:04 05/05/2023 11:43:18 Adult health examination [id number] Z00.01 Patient should discuss medical decisions with Health Care Proxy. Recommende d screenings included colonoscop y screening age 45, earlier based on family history/ri sk factors; annual mammogram age 50, unless earlier based on risk factors and discussion with patient; bone density age 65, unless risk factors for earlier screening; one time screen for hepatitis C if born between 9371-6606 or has risk factors. Reviewed vaccines and current recommenda tions. Basic health topics include aerobic exercise, importance of healthy/ba lanced diet and minimizing caffeine and alcohol. Her last mammogram was 05/2022; it was normal.Her last PAP was 11/2020; it was negative/n ormal w/ co-testing .She had a TRACIE in July 2022 and doesn't require further PAPs. Screening mammography 24 [id number] Z12.31 Administra tion of diphtheria, pertussis, and tetanus vaccine [id number] Z23 Advance care planning 71 0326219 Z71.89 She has a HCP, it is her son.She has the paperwork at home and will bring it to her next visit. Hepatitis C screening 41 [id number] Z11.59 The USPSTF recommends one time screening for hepatitis C virus (HCV) infection in adults aged 18 to 79 years. Asthma [id number] J45.90 9 Well controlled ; she is using her rescue inhaler < 3 X week. Lumbosacra l spondylosis without myelopathy 42441807 M47.817 She has found tremendous relief since starting Celebrex.S table.She would like to try decreasing her gabapentin dose, I ordered 2 weeks of the 300mg for her to try. Vitamin D deficiency [id number] 33453 E55.9 History of vitamin D deficiency .We will plan to recheck this today and I will call with results. Depressive disorder [id number] F32.0 She scored a 4 on her PHQ-9.She feels this is well controlled now since her pain is now well controlled . 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 It is bilateral, left SI> right. EDIN 1: 80, B27 negative, RF normal.We discussed the condition and symptoms in detailWe discussed management for such: NSAIDS, trial GC injections and biologics if the first two options failShe has tried bilateral SI joint injections with Dr. Sneed , to no avail. In fact she reports exacerbati on of her symptoms after the injection. Her pain has improved, but still remains higher than prior to the injections .She reports characteri stic inflammato ry symptoms, though imaging does not demonstrat e sacroiliit is. She has no peripheral symptoms. She has no IBD symptoms or rashes. She reports benefit with Celebrex, but partial only. She has previously tried meloxicam, ibuprofen and naproxen.W dav had a discussion about Biologics (Enbrel or Humira to start). I reviewed potential benefits, manner in which they are administer ed and potential adverse effects (immunosup pression and increased risk for infections , low but possible risk for malignancy including hematologi c and dermatolog ic, demyelinat ing conditions , to name a few). I have given her informatio n to review. I have addressed all of her questions and concerns. She would like to proceed. We have agreed to start with Enbrel.She understand s it may take 3 to 4 months to determine its effect.Onc dav approved, she will come in for a nurse teaching visit. I would then like to see her 4 to 6 weeks into treatment. She will continue with her Celebrex for now. Recent CBC and CMP are both normal. 30 minutes was spent with Beata today. Greater than 50% of the visit was spent in counseling regarding her condition management options, potential benefits and risks with management . [id number] Jessica Colbert MD [facility] [address] [place] [address] [address] [place] [address] 07/30/2023 09:49:59 11/27/2023 03:45:21 Inflammation of sacroiliac joint [id number] M46.1 RN visit for injection education: Patient is here today to learn how to use Enbrel syringe.Sarah hunter was able to pick up driver the syringe and bring it to the education visit today.Lot: [id number] : 10/29/2025 Pt able to show appropriat e technique in selecting site, cleaning with alcohol wipe, and self injecting medication .Injection place in the Right upper lower abdomen without incident. Pt stayed in office for 15 minutes post injection to monitor for any reactions. Patient was educated to monitor for site reactions and to call if any concerns. Pt had question of if she gets sick should she hold enbrel. Advised pt that she should hold medication for illness and resume Enbrel after she feels better. She will call for any concerns. Adeline Brown RN [id number] Courtney nelson , [facility] [address] [place] [address] [address] [place] [address] 08/06/2023 11:21:03 08/06/2023 12:47:18 Chronic cystitis [id number] N30.20 Reviewed her medical records in detail with her today.She has a history of chronic cystitis that in recent years has been well controlled so she was able to stop antibiotic therapy.Светлана demarco has no vaginal symptoms.I have given her a rx for bactrim based on past recommenda tion from uro/pier hand and she is going to follow up with that office for long-term treatment discussion . 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 Nonradiogr aphic. It is bilateral, left SI> right. EDIN 1: 80, B27 negative, RF normal. ESR and CRP normal. She began Enbrel at the end of July.Adia kim developed cystitis symptoms hours after her first injection. Unclear if the 1 dose of Enbrel was the impetus for such. However she states she has not had issues with cystitis for 7 years prior.She has been holding further Enbrel injections , though oddly, she reports complete eliminatio n of her SI pain and notably improved energy after just the 1 Enbrel injection. She resumed Celebrex last evening. She refers to this as her wonder drug . She is beginning to feel some relief with her SI pain this morning. Plan:I am unsure what to make of her immediate responses to just 1 dose of Enbrel? b oth the cystitis symptoms and the overall improvemen t in her energy and SI pain. These seem rather dramatic.Stone demarco did discuss trial of an alternate anti-TNF agent. However she understand s it is possible with any immune suppressin g regimen that she may be at increased risk for infections such as urinary tract, and perhaps exacerbati on of her cystitis.S he desires to hold off in any immunother apy at this time. She has an appointmen t with urology in the near future. We will wait to see what the outcome of such as before proceeding with immunosupp ressive agents. She will continue with her Celebrex, 100 mg twice daily. She is aware that she may increase it to 200 mg twice daily, short-term , for flares. She will plan follow-up with me, once her urological issues have been evaluated. [id number] Bryce Gilbert MD [facility] [address] [place] [address] 10/23/2023 14:16:07 10/23/2023 14:56:02 Hydronephrosis [id number] N13.30 Overactive urinary bladder 862271539 N32.81 [id number] Jessica Colbert MD [facility] [address] [place] [address] 02/18/2024 15:47:56 02/24/2024 08:18:13 Acute low back pain [id number] M54.50 Acute LBP with a radicular sounding componentM RI demonstrat es mild broad-base d disc bulges, ligamentum flavum hypertroph y with moderate bilateral facet hypertroph y at L4-5 and L5-1. However no significan t central or neuroforam inal stenosis is reported.S he does have associated left paraspinal muscle tension. In short, her symptoms do not sound consistent with an inflammato ry process but rather an anatomical , radicular one.Anniun renardly she is feeling better today. She is taking 20 mg of prednisone . She has been on prednisone steadily for the past 10 days. She is also taking nightly Celebrex, nightly baclofen and gabapentin . Plan:We had a detailed discussion today regarding acute low back pain? I explained that acute LBP can last 6 to 8 weeks before symptoms begin to improve. She is still within this timeframe. She was reassured. I have recommende d she continue with moist heat to the region. She is afraid to stretch -out of fear of aggravatin g the pain. We did address how anxiety and negative thinking can have a negative impact on pain. I have tried to allay some of her anxieties related to the situation. I have also recommende d relaxation techniques (focused breathing, meditation ).As for pharmacoth erapy, she is finally beginning to feel somewhat better. Until she is able to see her spine providers, she can try to reduce her prednisone to 10 mg daily, but if needed can resume the 20 mg dose. She will be following up with the PA at [facility] beginning of March and pharmacoth erapy can be discussed in more detail there.Alte rnatively, she could stop the prednisone and take her Celebrex, 200 mg twice daily, for 2 weeks and then reduce to 100 mg twice daily.She was instructed not to take her Celebrex and prednisone concomitan tly. She was warned of potential GI risks and instructed only to take 1 or the other.She can continue with her nightly muscle relaxantSh e should continue with her gabapentin ? s he may benefit from a dose increase - this will be deferred to her spine providers. We have agreed to follow-up in 3 months, sooner if needed. Health Concerns Section Related Observation LastModified by Organization Detai ls LastModified Time None Recorded Concern Status LastModified by Organization Details LastModified Time None Recorded Advance Directives Directive N: Payers Encounter Date Sequence Insurance Name Policy Number Policy Ortega Covered Member ID Ortega Member ID Guarantor Name 07/30/2023 1 [place] [facility] [id number] Zaid Villavicencioourt [id number] Beata Christopher 08/06/2023 1 [place] [facility] [id number] Zaid Freemant [id number] Beata Christopher 10/21/2023 1 [place] [facility] [id number] Zaid Juarezncourt [id number] Beata Christopher 10/23/2023 1 [place] [facility] [id number] Zaid BoothReggie [id number] Beata Christopher 02/18/2024 1 [place] [facility] [id number] Zaid Juarezncourt [id number] Beata Christopher Notes Date Note Type Note Provider Name and Address Organization Details Recorded Time 4 text/html Beata is here today for c/o cystitis.Negative UA and culture on 08/03.Pt. 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 Courtney nelson,do [address] [facility], [place], [address], [facility] 08/15/2023 19:01:01 4 text/html This is a follow-up for Beata.I suspect Beata a spondyloarthropathy/ sacroiliitis- Nonradiographic. It is bilateral, left SI> right. EDIN 1: 80, B27 negative, RF normal. ESR and CRP normal.Our last visit was in June 2023.She began Enbrel at the end of July. She had an unusual experience after starting Enbrel- unsure if it was truly related to Enbrel.She has a hx of cystitis/ UTIs. States she hadn't had UTI sx's for 7-8 years prior. Took her 1st Ebrel injection and within hours developed body aches, bladder pressure, dysuria, frequency urgency, flank pain and abdominal distention. She had a UA/UCX through her PCPs office which was negative. She been treated with pyridoxine first and then with antibiotic though her UCX was negative. I believe she switched PCP offices during such. She now sees SARAH Anaya.She did not continue with Enbrel after that 1 injection. Interestingly she experienced improved energy and complete elimination of her gluteal discomfort after just that 1 injection. The improvements did not last, however. She has an upcoming appointment with urology. States she had a renal ultrasound which demonstrated possible mild left hydronephrosis. She has been on Celebrex in the past for her SI symptoms. Tells me it works wonders. She finally resumed Celebrex last evening and is starting to feel better again. Celebrex, 100 mg twice daily- tolerating it. ROS:Fevers: noRashes: to Bactrim recently (never had issue with Bactrim in the past)CP/SOB: noAbdominal pain: noMorning stiffness: Amy pain: yes- but not miserable - Celebrex is her wonder drug and she just resumed it Jessica Colbert MD [address] [place], [address], [facility] 11/01/2023 12:49:24 4 text/html This is a 43-year-old white female referred for questionable mild hydronephrosis. She had an ultrasound performed for pelvic discomfort and there was a question of possible mild left hydronephrosis. She has no flank pain or kidney stone history. She does complain of some suprapubic discomfort particularly after intercourse. She has frequency urgency occasionally her postvoid residual today is 22 cc her UA is negative she has been on suppressive dose of an antibiotic after intercourse which has helped her UTIs. Bryce Gilbert MD [address] [place], [address], [facility] 10/23/2023 14:46:14 4 text/html This is a 4-month follow-up for Beata for a spondyloarthropathy. She continues with Celebrex.Enbrel has been on hold until she had her urological issues evaluated: She saw Dr. Gilbert in September. She was recommended some medications. She sought a second opinion from a urogynecologist at [facility], who per Beata's report, did not have anything to offer for her cystitis. She states today that she does not want to go back on Enbrel because she fears aggravating her urinary issues- even though the Enbrel helped with her gluteal pain and pressure She presents today with a different type of back pain- feels it is more nerve like pain. She describes it as severe and affecting daily living. Sx's: Pain originates left side of lumbar spine/ SI region and extends to the right sidezapping, knife like stabbing pain- buttocks- lasts fraction of second- from left to rightMore recently experiences spasms back of thigh and twitching down leg feels alot of pressure in her sacral area coughing, sneezing, passing BM, walking, getting out of chair- aggravateIf stays still is ok- though laying down aggravates Overall, she is better in the AM- can stand uprightAs day progresses, symptoms crescendo such that she is pitched forward before bed She states this is unlike her back pain that she and I have been working on. She has had on and off episodes of such since September. It is a bit difficult to follow her history. The following is the best I can assemble. In September, she had a short lived episode. She had taken some leftover diclofenac from back surgery, 3 years prior. After 3 days, her pain resolved. Mid November, her pain returned. Again, she took diclofenac but this time it did not help.Saw her primary provider, Ron Zunigaewski, who prescribed methylprednisolone Dosepak and tramadol. She started the steroid alone without avail. She added tramadol and states the pain resolved after the second day.She describes horrendous side effects to tramadol? n ausea and dizziness. Mid -end of December her pain returned- shooting, stabbing pain.She contacted her pain management provider? Ever Sneed. They prescribed a Medrol Dosepak- helpful at the high doses (40 mg) but not so much so at lower doses (20 mg.). She has an appointment to see him end of March. She has also contacted her spine surgeon, Dr. Ozzie Alford of [facility]. She is scheduled to see his PA March 04. In the meantime, Mr. Escobar obtained an MRI of the lumbar spine and has extended her prednisone course. She has been on prednisone steadily for the past 10 days. At this point in time she is much better, though still significantly limited. She is currently taking 20 mg of prednisone each morningShe is taking tramadol, as needed.She is taking baclofen at night.She is on gabapentinShe continues with Celebrex 100 mg nightly. She has been applying heat then iceShe is petrified of stretching for fear of aggravating it Labs/ studies: 01/27/2024: MRI of lumbar spine without contrast:L2-3: Minor broad based disc bulge. No significant central stenosis. Mild bilateral facet hypertrophy without neuroforaminal stenosis. L3-4: Mild facet hypertrophy L4-5: Mild broad-based disc bulge with moderate bilateral facet ligamentum flavum hypertrophy without significant central stenosis L5-S1: Type II subacute endplate changes, mild broad-based disc bulge osteophyte complex with mild to moderate bilateral facet hypertrophy. No significant central or neuroforaminal stenosis. Jessica Colbert MD [address] [place] [address], [phone], [facility] 02/23/2024 13:22:23 OBGyn Episode No OBEpisode recorded.
--- OUTSIDE RECORDS SUMMARY | 2024-08-12 10:57 | XMS_ITS | Encounter Summary ---
Author Organization [facility] Address [address] [place] [address] Care Team Providers Care Family Resource Coordinator Name Role Phone Ron Escobar NP Primary Care Provider [phone]- [phone] Encounter Details Date Type Department Care Team (Late st Contact Info) Description 08/23/2022 [employer] Mobile[employer] Message Initial Department [address] [place] [id number] Mychart, Generic Provider [address] [place], [place] [id number] Questionnaire Submission Social History Tobacco Use Types Packs/Day Years Used Date Smoking Tobacco: Former Cigarettes Smokeless Tobacco: Never Comments:Social use Alcohol Use [...] 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 Not on file Not on file documented as of this encounter Plan of Treatment Upcoming Encounters Date Type Department Care Team (Latest Contact Info) Description 08/15/2024 10:00 AM EDT Appointment [facility] [address] [facility] 3rd [place] [address] 08/17/2024 8:15 AM EDT Hospital Encounter [facility] [address] [place] [address] David Recinos MD [address] [place] [address] 08/17/2024 8:15 AM EDT - 08/17/2024 10:55 AM EDT Surgery [facility] [address] [place] [address] David Recinos MD [address] [place] [id number] ROBOTIC APPENDECTOMY [[id number] (CPT??)] Scheduled Procedures Name Priority Associated Diagnoses Date/Ti ma ROBOTIC APPENDECTOMY Mucocele of appendix 08/17/2024 8:15 AM EDT REPAIR UMBILICAL HERNIA, INCARCERATED Mucocele of appendix 08/17/2024 8:15 AM EDT documented as of this encounter Visit Diagnoses Not on filedocumented in this encounter Care Teams Family Resource Coordinator Relationship Specialty Start Date End Date Ron Escobar NP [address] [facility] [place] [address] PCP - General 11/24/23 documented as of this encounter
--- OUTSIDE RECORDS SUMMARY | 2024-08-12 10:57 | XMS_ITS | Encounter Summary ---
Author Organization [facility] Address [address] [place] [address] Care Team Providers Care Software Installation Engineer Name Role Phone Ron Escobar NP Primary Care Provider +1- [phone] Reason for Referral * Surgical (Routine) - Authorized Specialty Diagnoses / Procedures Referred By Urmila cuevas Referred To Contact Surgical Oncology / General Surgery Diagnoses Mucocele of appendix Audrey Orozco MD [address] [place] [address] Phone: tel: fax: David Recinos MD [address] [place] [address] fax: Referral ID Status Reason Start Date Expiration Date Visits Requested Visits Authorized [id number] Authorized Specialty Services Required 07/25/2024 07/25/2025 6 6 Encounter Details Date Type Department Care Team (Late st Contact Info) Description 07/19/2024 Orders Only [facility] Obstetrics and Gynecology [address] [place] [address] Sfdc Consultant: Audrey Alaniz MD [address] [place] [address] Mucocele of appendix (Primary Dx) Social History [...] 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 Not on file Not on file documented as of this encounter Plan of Treatment Upcoming Encounters Date Type Department Care Team (Latest Contact Info) Description 08/15/2024 10:00 AM EDT Appointment [facility] [address] [place] [address] [address] [place] [address] 08/17/2024 8:15 AM EDT Hospital Encounter [facility] [address] [place] [address] David Recinos MD [address] [place] [address] 08/17/2024 8:15 AM EDT - 08/17/2024 10:55 AM EDT Surgery [facility] [address] [place] [address] David Recinos MD [address] [place] [id number] ROBOTIC APPENDECTOMY [59750 (CPT??)] Scheduled Procedures Name Priority Associated Diagnoses Date/Ti me ROBOTIC APPENDECTOMY Mucocele of appendix 08/17/2024 8:15 AM EDT REPAIR UMBILICAL HERNIA, INCARCERATED Mucocele of appendix 08/17/2024 8:15 AM EDT Scheduled Referrals Name Type Priority Associated Diagnoses Order Schedule Ambulatory referral to Surgical Oncology Outpatient Referral Routine Mucocele of appendix Expected: 07/19/2024, Expires: 01/16/2025 documented as of this encounter Visit Diagnoses Diagnosis Mucocele of appendix- Primary Other and unspecified diseases of appendix Mucocele of appendix Other and unspecified diseases of appendix documented in this encounter Care Teams Software Installation Engineer Relationship Specialty Start Date End Date Ron Escobar NP [address] [facility] [place] [address] PCP - General 11/24/23 documented as of this encounter
--- OUTSIDE RECORDS SUMMARY | 2024-08-12 10:57 | XMS_ITS ---
Author Organization [facility] Address [address] [place] [address] Care Team Providers Care Dipper And Baker Name Role Phone LUIS FERNANDO Gregorio Primary Care Provider Tino Hunter Unavailable [phone] REASON FOR VISIT DOS 07/13/24- S/P L5-S1 MIS TLIF-XR PRIOR-VH Encounters Encounter Location Date Provider Diagnosis [facility] [address] [place] [address] 07/28/2024 Tino Villeda Plan Of Treatment No Information Progress Notes * Beata WHITEDOB:1980 (44 yo F)Acc No.[id number]:07/28/2024 UNLOCKED PROGRESS NOTE Progress Note Patient:?Beata WHITE Provider:?Tino Villeda PA-C :1980???Age:44 Y???Sex:Female D ate:07/28/2024 Address:[address] [place] [address], [place] [address], [id number] Pcp:LUIS FERNANDO Gregorio Subjective: * Chief Complaints: * ???1. DOS 07/13/24- S/P L5-S1 MIS TLIF-XR PRIOR-VH. * Medical History:? Objective: * Vitals:? Assessment: Plan: * Treatment: * * The named appointment provid er may or may not be the originator of this progress note, and it is not deemed complete until electronically signed by the appointment provider. Sign off status: Pending * Provider:?Tino Villeda PA-C Date:? 07/28/2024 Generated for Herni mosquera/Tena/Solomon on:?08/12/2024 10:57 AM EDT
--- OUTSIDE RECORDS SUMMARY | 2024-08-12 10:57 | XMS_ITS | Clinical Summary ---
Author Organization [facility] Address [address] [place] [phone] Phone Care Team Providers Care Procurement Inspector Name Role Phone Pcp, Not Required Primary Care Provider Unavaila ble Allergies No known active allergies Medications Medication Sig Dispensed Refills Start Date End Date Status diclofenac sodium (VOLTAREN XR) 100 mg 24 hr tablet Take 1 tablet (100 mg total) by mouth daily for 14 days. 14 tablet 10/28/2020 Active Social History Tobacco Use Types Packs/Day Years Used Date Smoking Tobacco: Never Smokeless Tobacco: Never Alcohol Use Standard Drinks/Week Comments Yes 0 (1 standard drink = 0.6 oz pur e alcohol) socially, few times a month Education Answer Date Recorded Are you interested in more education? Not on marcus e 09/25/2022 Are you concerned about learning? Not on file 09/25/2022 No 09/25/2022 No 09/25/2022 Digital Access Answer Date Recorded No 10/27/2022 No 10/27/2022 No 10/27/2022 Reliable internet access at home? Not on file 10/27/2022 Device with a working camera? Not on file Sex and Gender Information Value Date Recorded Sex Assigned at Not on file Gender Identity Not on file Sexual Orientation Not on file Last Filed Vital Signs Vital Sign Reading Time Taken Comments Blood Pressure 113/68 10/28/2020 6:11 PM EDT Pulse 88 10/28/2020 6:11 PM EDT Temperature 36.8 ??C (98.2 ??F) 10/28/2020 6:11 PM ED T Respiratory Rate 18 10/28/2020 6:11 PM EDT Oxygen Saturation 100% 10/28/2020 6:11 PM EDT Inhaled Oxygen Concentration - - Weight - - Height - - Body Mass Index - - Plan of Treatment Health Maintenance Due Date Last Done Comments LIPID PANEL 1978 DEPRESSION SCREENING 1990 HEPATITIS B SCREENING 1996 HEPATITIS C SCREENING 1996 HIV ONE-TIME SCREENING (18-65 YEARS) 1996 PAP SMEAR 1999 MAMMOGRAM 2018 COLOGUARD 2023 COLONOSCOPY 2023 COLORECTAL CANCER SCREENING 2023 FIT TEST 2023 FOBT 2023 SIGMOIDOSCOPY 2023 VIRTUAL COLONOSCOPY 2023 Adult Td,Tdap Booster 07/29/2023 07/29/2013, 009 INFLUENZA VACCINE (#1) 2023 , 03/26/2019, 03/06/2018, Additional history exists COVID-19 VACCINE ( season) 2024 09/19/2020, 08/14/2020 HEPATITIS B VACCINES Completed 04/20/2009, 12/20/2008, 10/25/2008 PNEUMOCOCCAL VACCINES (0-49 years) Aged Out 07/29/2013 No longer eligible based on patient's age to complete this topic SMOKING STATUS SCREENING (Once After 26 Yrs) Completed 10/28/2020 HEPATITIS A VACCINES Aged Out No long er eligible based on patient's age to complete this topic HIB VACCINES Aged Out No longer eligi ble based on patient's age to complete this topic MENINGOCOCCAL VACCINES (ACWY) Aged Out No longer eligible based on patient's age to complete this topic Medical Devices Not on file Care Teams Procurement Inspector Relationship Specialty Start Date End Date Pcp, Not Required [address] [place] [address] PCP - General 10/28/20 Additional Source Comments The information contained in this document represents components of the legal health record. It is not the complete legal health record.[facility]
--- OUTSIDE RECORDS SUMMARY | 2024-08-12 10:57 | XMS_ITS | Clinical Summary ---
Author Organization [facility] Address [address] [place] [address] Care Team Providers Care Double Head Machine Operator Name Role Phone Celina Torrez Primary Care Provider [phone] Allergies Active Allergy Reactions Criticality Noted Date Comments Sulfonylureas Maculopapular Rash 02/08/2024 Medications Gabapentin (NEURONTIN) 100 MG capsule Take 100 mg by mouth 3 (three) times a day Active Baclofen (LIORESAL) 10 MG tablet Take 10 mg by mouth 1 (one) time each day if needed for muscle spasms Active Loratadine 10 MG Cap Take 10 mg by mouth 1 (one) time each day Active ALBUTEROL SULFATE (PROVENTIL HFA;VENTOLIN HFA) 108 (90 Base) MCG/ACT inhaler Inhale 2 puffs every 6 (six) hours if needed for wheezing Active Fluticasone Propionate, Inhal, (Flovent Diskus) 50 MCG/BLIST diskus inhaler Inhale 1 puff 2 (two) times a day Active Celecoxib (CeleBREX) 100 MG capsule Take 1 capsule twice a day by oral route for 90 days. Active Active Problems Problem Noted Date Diagnosed Date Bilateral piriformis syndrome PT 02/18/2022 DDD (degenerative disc disease), lumbar PT 02/18 Myofascial pain PT 02/18/2022 Facet arthritis of lumbar region PT 02/18/2022 Social History Tobacco Use Types Packs/Day Years [...] Sign Reading Time Taken Comments Blood Pressure 112/72 03/31/2023 9:42 AM EDT Pulse 80 03/31/2023 9:42 AM EDT Temperature - - Respiratory Rate - - Oxygen Saturation - - Inhaled Oxygen Concentration - - Weight - - Height - - Body Mass Index - - Plan of Treatment Upcoming Encounters Date Type Department Care Team (Late st Contact Info) Description 08/23/2024 9:15 AM EDT Consult (Initial) [facility] [address] [place] [phone] Yari Gonzalez, PT [address] [place] [address] POST OP 08/31/2024 9:30 AM EDT Minor Procedure/Test [facility] [address] [place] [phone] Chago Sanford, DEXTRINE MIXER [address] [place] [address] POST OP 09/07/2024 9:15 AM EDT Minor Procedure/Test [facility] [address] [place] [phone] Yari Gonzalez, PT [address] [place] [address] POST OP 09/14/2024 9:30 AM EDT Minor Procedure/Test [facility] [address] [place] [phone] Chago Sanford, DEXTRINE MIXER [address] [place] [address] POST OP 09/21/2024 9:15 AM EDT Minor Procedure/Test [facility] [address] [place] [phone] Keesha Smith, DEXTRINE MIXER [address] [place] [address] POST OP 09/28/2024 9:30 AM EDT Minor Procedure/Test [facility] [address] [place] [phone] Chago Sanford, DEXTRINE MIXER [address] [place] [address] POST OP 10/05/2024 9:15 AM EDT Minor Procedure/Test [facility] [address] [place] [phone] Yari Gonzalez, PT [address] [place] [address] POST OP 10/12/2024 9:30 AM EDT Minor Procedure/Test [facility] [address] [place] [phone] Chago Sanford, DEXTRINE MIXER [address] [place] [address] POST OP 10/19/2024 9:15 AM EDT Minor Procedure/Test [facility] [address] [place] [phone] Yari Gonzalez, PT [address] [place] [address] POST OP Health Maintenance Due Date Last Done Comments Hepatitis C Screening 1980 DTaP/Tdap/Td (1 - Tdap) 1996 Hep B (1 of 3 - 19+ 3-dose series) 1997 Mammogram/Breast Imaging 2018 Colon Cancer Screening 2023 Pap Smear 12/28/2023 12/27/2020 COVID-19 Vaccine ( season) 2024 03/27/2023, 08/22/2022, 05/22/2021, Additional history exists Influenza (#1) 2024 03/27/2023, 06/01, 04/18/2021, Additional history exists Zoster (Shingrix) (1 of 2) 2028 HPV Vaccine Aged Out No longer eligi ble based on patient's age to complete this topic Hep A Aged Out No longer eligi ble based on patient's age to complete this topic Hib Aged Out No longer eligi ble based on patient's age to complete this topic Meningococcal ACWY Aged Out No longer eligible based on patient's age to complete this topic Pneumococcal Aged Out No longer eligi ble based on patient's age to complete this topic Insurance BC FEE FOR SERVICE HMO Care Teams Double Head Machine Operator Relationship Specialty Start Date End Date Celina Torrez [facility] [address] [place] [address] MISHA PRITCHETT [id number] PCP - General Family Medicine 02/08/24
--- OUTSIDE RECORDS SUMMARY | 2024-08-12 10:57 | XMS_ITS | Encounter Summary ---
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 Not on file documented as of this encounter Plan of Treatment Upcoming Encounters Date Type Department Care Team (Latest Contact Info) Description 08/15/2024 10:00 AM EDT Appointment [facility] [address] [facility] 3rd [place] [address] 08/17/2024 8:15 AM EDT Hospital Encounter [facility] Operating Room [address] [place] [address] David Recinos MD [address] [place] [address] 08/17/2024 8:15 AM EDT - 08/17/2024 10:55 AM EDT Surgery [facility] Operating Room [address] [place] [address] David Recinos MD [address] [place] [address] ROBOTIC APPENDECTOMY [[id number] (CPT??)] Scheduled Procedures Name Priority Associated Diagnoses Date/Ti me ROBOTIC APPENDECTOMY Mucocele of appendix 08/17/2024 8:15 AM EDT REPAIR UMBILICAL HERNIA, INCARCERATED Mucocele of appendix 08/17/2024 8:15 AM EDT documented as of this encounter Visit Diagnoses Not on filedocumented in this encounter Care Teams Station Cleaning Porter Relationship Specialty Start Date End Date Ron Escobar NP [address] [place] [address] PCP - General 11/24/23 documented as of this encounter
--- OUTSIDE RECORDS SUMMARY | 2024-08-12 10:57 | XMS_ITS | Encounter Summary ---
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 Not on file documented as of this encounter Plan of Treatment Upcoming Encounters Date Type Department Care Team (Latest Contact Info) Description 08/15/2024 10:00 AM EDT Appointment [facility] [address] [facility] 3rd [place] [address] 08/17/2024 8:15 AM EDT Hospital Encounter [facility] Operating Room [address] [place] [address] David Recinos MD [address] [place] [phone] 08/17/2024 8:15 AM EDT - 08/17/2024 10:55 AM EDT Surgery [facility] Operating Room [address] [place] [address] David Recinos MD [address] [place] [phone] ROBOTIC APPENDECTOMY [[id number] (CPT??)] Scheduled Procedures Name Priority Associated Diagnoses Date/Ti me ROBOTIC APPENDECTOMY Mucocele of appendix 08/17/2024 8:15 AM EDT REPAIR UMBILICAL HERNIA, INCARCERATED Mucocele of appendix 08/17/2024 8:15 AM EDT documented as of this encounter Visit Diagnoses Not on filedocumented in this encounter Care Teams Reinforcing Steel Placer Relationship Specialty Start Date End Date Ron Escobar NP [address] [place] [address] PCP - General 11/24/23 documented as of this encounter
--- OUTSIDE RECORDS SUMMARY | 2024-08-12 10:57 | XMS_ITS | Encounter Summary ---
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 Not on file documented as of this encounter Plan of Treatment Upcoming Encounters Date Type Department Care Team (Latest Contact Info) Description 08/15/2024 10:00 AM EDT Appointment [facility] [address] [facility] 3rd [place] [address] 08/17/2024 8:15 AM EDT Hospital Encounter [facility] Operating Room [address] [place] [address] David Recinos MD [address] [place] [address] 08/17/2024 8:15 AM EDT - 08/17/2024 10:55 AM EDT Surgery [facility] Operating Room [address] [place] [address] David Recinos MD [address] [place] [address] ROBOTIC APPENDECTOMY [[id number] (CPT??)] Scheduled Procedures Name Priority Associated Diagnoses Date/Ti me ROBOTIC APPENDECTOMY Mucocele of appendix 08/17/2024 8:15 AM EDT REPAIR UMBILICAL HERNIA, INCARCERATED Mucocele of appendix 08/17/2024 8:15 AM EDT documented as of this encounter Visit Diagnoses Not on filedocumented in this encounter Care Teams Environmental Geologist Relationship Specialty Start Date End Date Ron Escobar NP [address] [place] [address] PCP - General 11/24/23 documented as of this encounter
--- OUTSIDE RECORDS SUMMARY | 2024-08-12 10:57 | XMS_ITS | Encounter Summary ---
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 She does not need any paperwork filled out by this office at this time, but she is aware we would be happy to fill out any forms she may require. She was told to expect 2-3 weeks out of work and that would depend on her clearance at her post operative appointment. She voiced understanding and agreement. documented in this encounter Plan of Treatment Upcoming Encounters Date Type Department Care Team (Latest Contact Info) Description 08/15/2024 10:00 AM EDT Appointment [facility] [address] [place] [address] 3rd [place] [address] 08/17/2024 8:15 AM EDT Hospital Encounter [facility] Operating Room [address] [place] [address] David Recinos MD [address] [place] [address] 08/17/2024 8:15 AM EDT - 08/17/2024 10:55 AM EDT Surgery [facility] Operating Room [address] [place] [address] David Recinos MD [address] [place] [phone] ROBOTIC APPENDECTOMY [[id number] (CPT??)] Scheduled Procedures Name Priority Associated Diagnoses Date/Ti ne ROBOTIC APPENDECTOMY Mucocele of appendix 08/17/2024 8:15 AM EDT REPAIR UMBILICAL HERNIA, INCARCERATED Mucocele of appendix 08/17/2024 8:15 AM EDT documented as of this encounter Visit Diagnoses Not on filedocumented in this encounter Care Teams Bass Guitar Teacher Relationship Specialty Start Date End Date Ron Escobar NP [address] [place] [address] PCP - General 11/24/23 documented as of this encounter
--- OUTSIDE RECORDS SUMMARY | 2024-08-12 10:57 | XMS_ITS | Data Portability ---
Author Organization [place] - [facility], [facility], Patient Home Address [address] [facility] [address] [place] [address] Care Team Providers Care Frame Stripper Name Role Phone SAIDA ANDREWS Primary Care Provider [phone] SAIDA ANDREWS Referring Provider [phone] Assessment Encounter Date Assessment Date Assessment LastModified by Organization Details LastModified Time 03/01/2024 03/01/2024 Dr. Zheng, attending physician has reviewed the HPI and assessment/pl an , and was in attendance for the physical exam. Not available 03/01/2024 12:21:13 Plan of Treatment Reminders Order Date Submit Date Provider Last Modified By Organization Details Last Modified Time Details Appointments None recorded. Lab drug screen, urine 2023 Main Office, [address] [place] [address], [place] [address], [place], [address], 11:56:50 Referral None recorded. Procedures nerve conduction study/EMG, lower extremity (PROC) 2023 [email or web address] Not available 09:17:20 Surgeries None recorded. Imaging None recorded. Medication Orders Cymbalta 20 mg capsule,del ayed release 2023 [email or web address] [id number], [address] [facility], [place], [address], 13:12:13 hydrocodone 5 mg-acetamin ophen 325 mg tablet 2023 DENI [id number], [address] [place], [address], 11:56:53 Patient Targets Encounter Date Encounter Id Patient Goals Patient Target Last Modified By Organization Details Last Modified Time Increased activitiesimproved function Not available 03/01/2024 12:25:18 Patient Instructions Encounter Date Encounter Id Patient Instructions Last Modified By Organization Details Last Modified Time 03/01/2024 [id number] Continue conservative treatment Continue home exercises as directed by provider Use ice and hot packs as instructed Take your medicine as instructed Not available 03/01/2024 12:25:22 given Not available 2023 12:25:24 Reason for Referral None Reported. Results Created Date Observation Date Name Description Value Unit Range Abnormal Flag Note LastModifiedBy Organization Detail LastModifiedTime 03/01/2003/02/2024 [facility] creat ur-mcnc 71.9 mg/dL 20 - 370 MICHELLE L Creat inine and pH are perfo rmed for speci men valid ity and not diagn ostic purpo ses. Not Available [facility] [address] [place] [address], [address], 03/03/2024 22:17:32 03/01/2003/02/2024 [facility] pH ur 7.28 4.5 - 9.0 MICHELLE L Creat inine and pH are perfo rmed for speci men valid ity and not diagn ostic purpo ses. Not Available [facility] [address] [place] [address], [place], [address], 03/03/2024 22:17:32 03/01/20 24 03/03/2024 [facility] none prescribed ur CMP NONE DETECT ED NG/mL >=0 NOT PRESE NT: All drugs inclu ded in medic ation compl iance testi ng were negat kaleb. Not Available [facility] [address] [place] [address], [address], 03/03/2024 22:17:32 03/01/20 24 03/03/2024 [facility] biodetect EXPECT ED Test resul t is consi stent with jeanette robledo zed human urine . Not Available [facility] [address] [place] [address], [address], 03/03/2024 22:17:32 03/01/20 24 03/03/2024 [facility] alcohol metabolites ur ql cfm <200 NG/mL >=200 NONE DETEC AREN Not Available [facility] [address] [place] [address], [place], [address], 03/03/2024 22:17:32 03/01/2003/03/2024 [facility] ethyl sulfate ur cfm-mcnc <200 NG/mL >=200 NONE DETEC AREN Not Available [facility] [address] [place] [address], [place], [address], 03/03/2024 22:17:32 03/01/20 24 03/01/2024 drug scree n, urine Amphetamines : negati ve Not Available Main Office [address], [address], 03/01/2024 11:11:54 03/01/20 24 03/01/2024 drug scree n, urine Cannabinoids :THC negati ve Not Available Main Office [address], [address], 03/01/2024 11:11:54 03/01/20 24 03/01/2024 drug scree n, urine Cocaine: negati ve Not Available Main Office [address] [address], [place], [address], 03/01/2024 11:11:54 03/01/20 24 03/01/2024 drug scree n, urine Methadone: negati ve Not Available Main Office [address], [address], 03/01/2024 11:11:54 03/01/2003/01/2024 drug scree n, urine Opiates: negati ve Not Available Main Office [address] [address], [place], [address], 03/01/2024 11:11:54 03/01/2003/01/2024 drug scree n, urine Oxycodone: negati ve Not Available Main Office [address] [address], [place], [address], 03/01/2024 11:11:54 03/01/2003/01/2024 drug scree n, urine Phenocyclidi ne: negati ve Not Available Main Office [address] [place] [address], [place], [address], 03/01/2024 11:11:54 03/01/2003/01/2024 drug scree n, urine Barbiturates : negati ve Not Available Main Office [address] [address], [place], [address], 03/01/2024 11:11:54 03/01/2003/01/2024 drug scree n, urine Benzodiazepi sp: negati ve Not Available Main Office [address] [place] [address], [place], [address], 03/01/2024 11:11:54 03/01/2003/01/2024 drug scree n, urine Buprenorphin e negati ve Not Available Main Office [address] [place] [address], [place], [address], 03/01/2024 11:11:54 03/01/2003/01/2024 drug scree n, urine Methamphetam ine negati ve Not Available Main Office [address] [address], [place], [address], 03/01/2024 11:11:54 03/01/20 24 03/01/2024 drug scree n, urine MDMA negati ve Not Available Main Office [address] [address], [place], [address], 03/01/2024 11:11:54 02/17/20 24 imagi ng/di agnos tic resul t No observ ation record ed. [email or web address] Not Available 2023 16:18:27 Result Notes None recorded. Problems Name Problem SNOMED Code Status Onset Date Resolution Date Notes Provider Name and Address Organization Details Recorded Time Chronic low back pain 817045179 Active 2023 Augusto french [place] - [facility], [facility] 4 10:15:27 Lumbar spondylosis 509424244 Active 2023 Augusto french [place] - [facility], [facility] 4 10:15:39 Asthma 864703073 Active 2023 Augusto french, MISHA - [facility], [facility] 4 10:15:54 Depressive disorder 75206604 Active 2023 Augusto french, MISHA - [facility], [facility] 4 10:16:00 Low back pain 914522820 Active 2023 Opal Chu APRN [address], [address], [facility], [facility] 4 11:55:29 Lumbar radiculopathy 778048191 Active 2023 Opal Chu APRN [address], [address], [facility], [facility] 12:22:36 Problem Notes None recorded. Procedures Surgical History Date Name Laterality Status Provider Name and Address Organization Details Recorded Time procedure on back completed Augusto Valenzuela [facility], [facility] 03/01/2024 11:05:14 hysterectomy completed Augusto Hansen [facility], [facility] 03/01/2024 11:05:23 injection of steroid completed Augusto Hansen [facility], [facility] 03/01/2024 11:05:57 Imaging Results Imaging Date Name Status LastModified by Organiz ation Details LastModified Time 02/17/2024 imaging/diag nostic result completed [email or web address] Information not available 02/17/2024 16:18:27 Procedure Notes None recorded. Medical Equipment None Reported. Allergies Allergen ID Allergen Name Allergen Category Reaction Reaction Severity Criticality Documentation Date Start Date Code Code System Note Provider Name and Address Organization Details Recorded Time 7867 Bactrim medicatio n Not available Not available Not available 02/18/2024 97753 9 RxNorm [facility] 10:13:32 Medications Name Sig Start Date Stop Date Status Note LastModified by Organization Details LastModified Time prednisone 10 mg tablet Take 1 tablet every day by oral route. active Not Available Not Available No t Available tizanidine 2 mg tablet active Not Available Not Available Not Available cetirizine 10 mg tablet Take 1 tablet every day by oral route. active Not Available Not Available No t Available tolterodine ER 4 mg capsule,ext ended release 24 hr 03/01 completed Not Available Not Available Not Available hydrocodone 5 mg-acetamin ophen 325 mg tablet Take 0.5 tablets 3 times a day by oral route for 7 days. active Not Available Not Available No t Available gabapentin 400 mg capsule Take 1 capsule 3 times a day by oral route. active Not Available Not Available No t Available sulfamethox azole 800 mg-trimetho prim 160 mg tablet active Not Available Not Available Not Available tramadol 50 mg tablet 03/01 completed Not Available Not Available Not Available Celebrex 100 mg capsule Take 1 capsule every day by oral route. active Not Available Not Available No t Available methocarbam ol 750 mg tablet active Not Available Not Available Not Available baclofen 10 mg tablet Take 1 tablet 3 times a day by oral route. active Not Available Not Available No t Available fluticasone propionate 44 mcg/actuati on HFA aerosol inhaler Inhale 2 puffs twice a day by inhalatio n route. active Not Available Not Available No t Available gabapentin 300 mg capsule 03/01 completed Not Available Not Available Not Available hydroxyzine HCl 25 mg tablet Take 1 tablet 3 times a day by oral route. active Not Available Not Available No t Available gabapentin 100 mg capsule active Not Available Not Available Not Available methylpredn isolone 4 mg tablets in a dose pack 03/01 completed Not Available Not Available Not Available albuterol sulfate HFA 90 mcg/actuati on aerosol inhaler active Not Available Not Available Not Available duloxetine 20 mg capsule,del ayed release TAKE 1 CAPSULE BY MOUTH TWICE A DAY FOR 28 DAYS active Not Available Not Available No t Available Enbrel 50 mg/mL (1 mL) subcutaneou s syringe 03/01 completed Not Available Not Available Not Available albuterol sulf 90 mcg/actuati on breath activated powder inhaler,sen sor Inhale 2 puffs every 4 hours by inhalatio n route. 03/01 completed Not Available Not Available Not Available Vitals Date Recorded Body temperature Body weight Body mass index (BMI) Body height Respiratory rate Heart rate Heart rate Oxygen saturation Oxygen saturation in Arterial blood by Pulse oximetry Systolic blood pressure Diastolic blood pressure Provider Name and Address Organization Details Last Updated DateTime 4 98.6 [degF] 70477.0 8 g 23 kg/m2 170.18 cm 18 /min 82 /min 82 /min 98 % 98 % 101 mm[Hg] 72 mm[Hg] Augusto joseph [facility], [facility] 4 11:09:02 Social History Question Answer Notes LastModified by Organizat ion Details LastModified Time Tobacco Smoking Status Former Smoker more socially when did smoke Augusto french [facility], [facility] 03/01/2024 11:04:28 What Is Your Level Of Alcohol Consumption? Occasional More On Special Occasions Information not available 03/01/2024 Are You Blind Or Do You Have Difficulty Seeing? No Information not available 03/01/2024 What Is Your Level Of Caffeine Consumption? Moderate Information not available 03/01/2024 In The 14 Days Before Symptom Onset, Have You Had Close Contact With A Laboratory-conf irmed COVID-19 While That Case Was Ill? No Information not available 03/01/2024 In The 14 Days Before Symptom Onset, Have You Had Close Contact With A Person Who Is Under Investigation For COVID-19 While That Person Was Ill? No Information not available 03/01/2024 Have You Been To An Area Known To Be High Risk For COVID-19? No Information not available 03/01/2024 Are You Currently Employed? Yes Information not available 03/01/2024 Are You Deaf Or Do You Have Serious Difficulty Hearing? No Information not available 03/01/2024 What Type Of Diet Are You Following? 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 Right Information not available 03/01/2024 Do You Feel Stressed (tense, Restless, Nervous, Or Anxious, Or Unable To Sleep At Night)? [id number] Information not available 03/01/2024 Do You Or Have You Ever Used Any Other Forms Of Tobacco Or Nicotine? No Information not available 03/01/2024 Sex: Unknown Functional Status Question Answer Note LastModified by Organizat ion Details LastModified Time Do you have difficulty walking or climbing stairs? Yes Information not available 03/01/2024 Are you able to walk? YESASSIST Information not available 03/01/2024 Do you have difficulty doing errands alone? Yes Information not available 03/01/2024 Do you have difficulty dressing or bathing? Yes Information not available 03/01/2024 Mental Status Question Answer Note LastModified by Organizat ion Details LastModified Time Do you have difficulty concentrating, remembering or making decisions? Yes due to the pain Information not available 03/01/2024 Family History Nothing Reported. Medical History Condition Response Coronary Artery Disease N Gout N Head Trauma/Injury N Hernia N Thyroid Problems N Depression N COPD N Anemia Y Ulcers N Heart Attack ([place]) N Diabetes N Anxiety Disorder Y Bleeding Disorder N Arthritis Y Tuberculosis N AIDS/HIV N Acid Reflux (GERD) N Cancer N Stroke N Asthma Y Substance Abuse N Back Injury N High Cholesterol N Hepatitis N Liver Disease N Heart Disease N Fibromyalgia N Headaches N Hypertension N Osteoporosis N Kidney Disease N Gynecological HistoryNo gynecological history recorded. Obstetrics History GPAL:G 0 P 0 0 0 0 Past Encounters Encounter ID Performer Location Encounter Start Date Encounter Closed Date Diagnosis/Indication Diagnosis SNOMED-CT Code Diagnosis ICD10 Code Diagnosis Note [id number] Ildefonso Zheng MD Main Office [address] [facility] [place] [address] 03/01/2024 10:29:59 03/01/2024 13:15:59 Long-term current use of opiate analgesic drug 9484161660 04484 Z79.891 [place] screen today negative all metabolite s.Will send out for GC/MS confirmato ry testing for alcohol. Low back pain 607169035 M54.51 Start hydrocodon e/apap, take 1/2 tab 3x dayReviewe d the controlled substance agreement. Do not drink alcohol while taking {{percocet tramdol o xycodone h ydrocodone * Butrans morphine}} . The risk of {{percocet tramadol oxycodone hydrocodon e* Butrans morphine} } was explained to the patient in detail. SCIENTIFIC SOFTWARE ENGINEER checked today, no concerns. Lumbar radiculopathy 128 194161 M54.16 Plan for a bilateral LEs EMG/NCVDis cussed a caudal epidural steroid injection, she will need to wean of the prednisone , or at least get down to 5mg prednisone daily to go forward with the caudal epiduralRe commended PT, she declined, pt given handout of exercises to complete at homeStart cymbalta 2 0mg bidy Health Concerns Section Related Observation LastModified by Organization Detai ls LastModified Time None Recorded Concern Status LastModified by Organization Details LastModified Time None Recorded Advance Directives Directive None Recorded Payers Encounter Date Sequence Insurance Name Policy Number Policy Ortega Covered Member ID Ortega Member ID Guarantor Name 03/01/2024 1 [place]: [facility] [id number] Zaid Paredes [id number] Betaa White Notes Date Note Type Note Provider Name and Address Organization Details Recorded Time 03/01/2024 text/html 43 year old femjuan f white with history of low back pain, status post L5-S1 laminectomy in 2022, asthma, depression, uterine fibroids s/p hysterectomy. She presents today with complaints of low back pain, described as constant aching and sharp, stabbing intermittent pain, rated 7-10/10 VAS with pain into lower extremities worse on left with paresthesia. She reports after her lumbar surgery in 2022 her back pain was minimal, in September 2023 she had sudden onset of pain, she took diclofenac and the pain subsided. Then in November the pain returned, diclofenac provided no relief this time, she was started on prednisone and tramadol the pain subsided. Then the pain returned again in December and has not subsided, she is on a daily dose of 20 mg prednisone to assist the pain and function. She reports if she did not have the prednisone she would not be able to function daily. She also takes gabapentin 400 mg QHS, baclofen 10 mg BID and celecoxib 100mg BID by pcp. She reports any movement of her body, lifting her legs to walk, sneeze, standing to wash dishes aggravates the pain. She has been walking with a walker since October, she finds leaning forward provides relief. She also c/o buttock pain that she is followed by rewinder operator, this pain is described as dull, constant ache. Lumbar MRI from 01/28/24 with impression L2-3 with minor broad based disc bulge without significant central stenosis, mild bilateral facet hypertrophy, L3-4 mild facet hypertrophy. L4-5 mild broad based disc bulge with moderate bilateral facet ligamentum flavum hypertrophy, L5-S1 mild broad based disc bulge osteophyte complex with mild to moderate bilateral facet hypertrophy. No significant central or neuroforaminal stenosis. UT screen today negative all metabolites tested for. Ildefonso Zheng MD [address] [place] [address],[address], [place], [address], [facility], [facility] 03/01/2024 13:14:15 OBGyn Episode No OBEpisode recorded.
--- OUTSIDE RECORDS SUMMARY | 2024-08-12 10:57 | XMS_ITS | Encounter Summary ---
Author Organization [facility] Address [address] [place] [address] Care Team Providers Care General Maintenance Mechanic Name Role Phone Ron Escobar NP Primary Care Provider [phone] Reason for Visit * Reason Onset Date Comments PAC Patient Request Call Back 07/20/2024 PAC Appt Request - New 07/20/2024 Encounter Details Date Type Department Care Team (Late st Contact Info) Description 07/20/2024 Telephone [facility] Breast [address] [address] Geographic Information System Surveyor: Kasandra Toribio Telephone Intake, Staff PAC Patient Request Call Back; PAC Appt Request - New Social History Tobacco Use Types Packs/Day Years [...] 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 Not on file Not on file documented as of this encounter Miscellaneous Notes * Telephone Encounter - Aleta Ordoñez - 07/20/2024 3:59 PM EST New Pt Appt -- Dx ; Mucocele of appendix Called out to pt off referral ; Clinic Name: Surg RFV/DX: dx not listed Reason for escalation due to RFV or Time frame: dt denies Found during MRI 08/2023 Add imaging -- US 05/2024 , CT 07/2024 Best call back# [phone] Thank you documented in this encounter Plan of Treatment Upcoming Encounters Date Type Department Care Team (Latest Contact Info) Description 08/15/2024 10:00 AM EDT Appointment [facility] [address] [place] [address] [address] [place] [address] 08/17/2024 8:15 AM EDT Hospital Encounter [facility] Operating Room [address] [place] [id number] David Recinos MD [address] [place] [id number] 08/17/2024 8:15 AM EDT - 08/17/2024 10:55 AM EDT Surgery [facility] Operating Room [address] [place] [id number] David Recinos MD [address] [place] [id number] ROBOTIC APPENDECTOMY [[id number] (CPT??)] Scheduled Procedures Name Priority Associated Diagnoses Date/Ti mi ROBOTIC APPENDECTOMY Mucocele of appendix 08/17/2024 8:15 AM EDT REPAIR UMBILICAL HERNIA, INCARCERATED Mucocele of appendix 08/17/2024 8:15 AM EDT documented as of this encounter Visit Diagnoses Not on filedocumented in this encounter Care Teams General Maintenance Mechanic Relationship Specialty Start Date End Date Ron Escobar NP [address] [facility] [place] [address] PCP - General 11/24/23 documented as of this encounter
--- OUTSIDE RECORDS SUMMARY | 2024-08-12 10:57 | XMS_ITS | Encounter Summary ---
Author Organization [facility] Address [address] [place] [address] Care Team Providers Care Senior Net Engineer Name Role Phone Ron Escobar NP Primary Care Provider [phone]- [phone] Reason for Referral * MRI/CAT/PET Scan (Emergency) - Closed Specialty Diagnoses / Procedures Referred By Urmila cuevas Referred To Contact Radiology Diagnoses Adnexal mass Procedures CT Abdomen Pelvis W Contrast CT Abdomen Pelvis with/without Contrast Audrey Orozco MD [address] [place] [address] Phone: tel: fax: [facility] CT Scan [address] [place], [place] Phone: tel: Referral ID Status Reason Start Date Expiration Date Visits Re quested Visits Authorized [id number] Closed 07/04/2024 01/03/2026 1 1 Reason for Visit * MRI/CAT/PET Scan (Emergency) - Closed Specialty Diagnoses / Procedures Referred By Urmila cuevas Referred To Contact Radiology Diagnoses Adnexal mass Procedures CT Abdomen Pelvis W Contrast CT Abdomen Pelvis with/without Contrast Audrey Orozco MD [address] [place] [address] Phone: tel: fax: [facility] CT Scan [address] [place], [place] Phone: tel: Referral ID Status Reason Start Date Expiration Date Visits Re quested Visits Authorized [id number] Closed 07/04/2024 01/03/2026 1 1 Encounter Details Date Type Department Care Team (Latest Contact Info) Description 07/12/2024 12:56 PM EST - 07/12/2024 11:59 PM EST Hospital Encounter [facility] CT Scan [address] [place] [address] Adnexal mass Discharge Disposition: Home or Self Care () Social History Tobacco Use Types Packs/Day Years [...] 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 documented as of this encounter Plan of Treatment Upcoming Encounters Date Type Department Care Team (Latest Contact Info) Description 08/15/2024 10:00 AM EDT Appointment [facility] [address] [place] [address] [address] [place] [address] 08/17/2024 8:15 AM EDT Hospital Encounter [facility] Operating Room [address] [place] [id number] David Recinos MD [address] [place] [phone] 08/17/2024 8:15 AM EDT - 08/17/2024 10:55 AM EDT Surgery [facility] Operating Room [address] [place] [id number] David Recinos MD [address] [place] [id number] ROBOTIC APPENDECTOMY [42022 (CPT??)] Scheduled Procedures Name Priority Associated Diagnoses Date/Ti me ROBOTIC APPENDECTOMY Mucocele of appendix 08/17/2024 8:15 AM EDT REPAIR UMBILICAL HERNIA, INCARCERATED Mucocele of appendix 08/17/2024 8:15 AM EDT documented as of this encounter Procedures * Due to [place] state law, this organization might not be sharing negative HIV tests. Procedure Name Priority Date/Time Associated Diagnosis Comments CT ABDOMEN PELVIS W CONTRAST STAT 07/12/2024 1:56 PM EST Adnexal mass documented in this encounter Results * Due to [place] state law, this organization might not be sharing negative HIV tests. * CT Abdomen Pelvis W Contrast (07/12/2024 [...] the ordering or responsible provider via the [employer] system on 07/12/2024 2:54 PM. ??Receipt of this communication by the responsible provider will be documented in [employer] upon receiving acknowledgement if applicable, Message ID [id number]. If this radiology report contains a blank impression section, it is an incomplete radiology report. ??Please contact the interpreting radiologist or applicable radiology division as soon as possible to obtain the completed interpretation. ? Workstation ID: [id number] Up-to-date CT equipment and radiation dose reduction [...] osseous lesion is identified. Resulting Agency Comment [id number] Audrey Orozco MD [facility] PROCEDURES Edited Result - Final documented in this encounter Visit Diagnoses Diagnosis Adnexal mass Other specified symptom associated with female genital organs Mucocele of appendix Other and unspecified diseases of appendix documented in this encounter Administered Medications Inactive Administered Medications - up to 3 most recent administrations Medication Order MAR Action Action Date Dose Rate Site iohexoL (OMNIPAQUE) 350 mg iodine/mL contrast 10-200 mL 10-200 mL, intravenous, Once, On 07/12/24 at 1400, 1 dose, Imaging Protocol Orders Given 07/12/2024 1:56 PM EST 100 mL documented in this encounter Care Teams Senior Net Engineer Relationship Specialty Start Date End Date Ron Escobar NP [address] [facility] [place] [id number] PCP - General 11/24/23 documented as of this encounter
--- OUTSIDE RECORDS SUMMARY | 2024-08-12 10:58 | XMS_ITS | Encounter Summary ---
Author Organization [facility] Address [address] [place] [address] Care Team Providers Care Associate Technician Name Role Phone Ron Escobar NP Primary Care Provider [phone]- [phone] Encounter Details Date Type Department Care Team (Late st Contact Info) Description 01/28/2021 Orders Only [facility] Inter[facility]iology [address] [place] [address] Carmel Lugo PA [address] [place] [address] Social History Tobacco Use Types Packs/Day Years Used Date Smoking Tobacco: Former Smokeless Tobacco: Never Comments No Sex and Gender Information Value Date Recorded Sex Assigned at Female 04/14/2021 1:25 PM EST Legal Sex Female 11:43 AM EDT Gender Identity Female 04/14/2021 1:25 PM EST Sexual Orientation Straight 04/14/2021 1: 25 PM EST documented as of this encounter Plan of Treatment Upcoming Encounters Date Type Department Care Team (Latest Contact Info) Description 08/15/2024 10:00 AM EDT Appointment [facility] [address] [facility] 3rd [place] [address] 08/17/2024 8:15 AM EDT Hospital Encounter [facility] Operating Room [address] [place] [address] David Recinos MD [address] [place] [phone] 08/17/2024 8:15 AM EDT - 08/17/2024 10:55 AM EDT Surgery [facility] Operating Room [address] [place] [id number] David Recinos MD [address] [place] [id number] ROBOTIC APPENDECTOMY [24893 (CPT??)] Scheduled Procedures Name Priority Associated Diagnoses Date/Ti me ROBOTIC APPENDECTOMY Mucocele of appendix 08/17/2024 8:15 AM EDT REPAIR UMBILICAL HERNIA, INCARCERATED Mucocele of appendix 08/17/2024 8:15 AM EDT documented as of this encounter Visit Diagnoses Not on filedocumented in this encounter Care Teams Associate Technician Relationship Specialty Start Date End Date Ron Escobar NP [address] [facility] [place] [phone] PCP - General 11/24/23 documented as of this encounter
--- OUTSIDE RECORDS SUMMARY | 2024-08-12 10:58 | XMS_ITS | Referral Summary ---
Author Organization [facility] Address [address] [place] [address] Care Team Providers Care Measurement Department Chief Clerk Name Role Phone Ron Escobar NP Primary Care Provider [phone]- [phone] Encounters Date Type Department Care Team Description 08/03/2024 Telephone [facility] [place] 5th Floor [address] [place] [address] Kristina Do RN 08/02/2024 2:15 PM EST - 08/02/2024 2:50 PM EST Surgery [facility] Endoscopy [address] [place] [address] Gricel Pantoja MD Colonoscopy, Diagnostic, with Possible Moderate Sedation [42636 (CPT??)] 08/02/2024 2:27 PM EST Anesthesia Event [facility] Endoscopy [address] [place] [address] Michel Birmingham MD 08/02/2024 1:09 PM EST - 08/02/2024 4:09 PM EST Hospital Encounter [facility] Endoscopy [address] [place] [address] Gricel Pantoja MD Mucocele of appendix Discharge Disposition: Home or Self Care () 08/01/[address] [place] [address] Celina Eduardo RN 07/29/2024 Prep for Case [facility] Endoscopy [address] [place] [address] Gricel Pantoja MD 07/28/2024 myChart Message Initial Department [address] [place] [address] Mychart, Generic Provider Questionnaire Submission 07/26/2024 myChart Message Initial Department [address] [place] [address] Mychart, Generic Provider Questionnaire Submission 07/26/2024 12:15 PM EST Office Visit [facility] [address] [place] [address] Linking Machine Operator: David Perry MD Mucocele of appendix (Primary Dx) 07/20/2024 Telephone [facility] [address] [place] [phone] Linking Machine Operator: Kasandra Toribio Telephone Intake, Staff PAC Patient Request Call Back; PAC Appt Request - New 07/20/2024 Results Follow-Up [facility] Obstetrics and Gynecology [address] [place] [phone] Linking Machine Operator: Audrey Alaniz MD 07/19/2024 Orders Only [facility] Obstetrics and Gynecology [address] [place] [address] Linking Machine Operator: Audrey Alaniz MD Mucocele of appendix (Primary Dx) 07/12/2024 12:56 PM EST - 07/12/2024 11:59 PM EST Hospital Encounter [facility] CT Scan [address] [place] [address] Adnexal mass Discharge Disposition: Home or Self Care () 07/05/2024 Orders Only [facility] ACC Building Mammography [address] [facility], 5th [place] [address] Man Mcdonald MD 07/01/2024 myChart Message [facility] Obstetrics and Gynecology [address] [place] [address] Linking Machine Operator: Audrey Alaniz MD updates 07/01/2024 Orders Only [facility] Obstetrics and Gynecology [address] [place] [phone] Linking Machine Operator: Audrey Alaniz MD Adnexal mass (Primary Dx) from Last 3 Months Allergies Active Allergy Reactions Criticality Noted Date [...] 02/18/2022 DDD (degenerative disc disease), lumbar 02/19/20 22 Facet arthritis of lumbar region 02/18/2022 Myofascial [...] Date Resolved Date Uterine fibroid 08/04/2022 08/04/2022 Immunizations Immunization Administration Dates Next Due COVID-19, Pfizer, mRNA, Biva lent Booster, PF, 30 mcg/0.3 mL dose (for age 12 y and up) 08/22/2022 Influenza, Injectable, Quadrivalent, Preservativ e Free 04/18/2021 Social History Tobacco Use Types Packs/Day Years [...] 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 Not on [...] Info) Description 08/15/2024 10:00 AM EDT Appointment [facility] [address] [place] [address] [address] [place] [address] 08/17/2024 8:15 AM EDT Hospital Encounter [facility] Operating Room [address] [place] [address] David Recinos MD [address] [place] [phone] 08/17/2024 8:15 AM EDT - 08/17/2024 10:55 AM EDT Surgery [facility] Operating Room [address] [place] [phone] David Recinos MD [address] [place] [phone] ROBOTIC APPENDECTOMY [28976 (CPT??)] Scheduled Procedures Name Priority Associated Diagnoses Date/Ti mo ROBOTIC APPENDECTOMY Mucocele of appendix 08/17/2024 8:15 AM EDT REPAIR UMBILICAL HERNIA, INCARCERATED Mucocele of appendix 08/17/2024 8:15 AM EDT Medical Devices Implanted Type Area Shipyard Laborer Device Identifier Shelf Expiration Date Model / Serial / Lot Microsphere Embolization Prefilled Syringe Red 500um-700um 20ml Embosphere - [id number] Implanted:Qty: 1 on 04/17/2021 at [facility] Implant [facility] S620GH / / Microsphere Embolization Prefilled Syringe Red 500um-700um 20ml Embosphere - [id number] Implanted:Qty: 1 on 04/17/2021 at [facility] Implant [facility] S620GH / / Microsphere Embolization Prefilled Syringe Red 500um-700um 20ml Embosphere - [id number] Implanted:Qty: 1 on 04/17/2021 at [facility] S620GH / / Microsphere Embolization Prefilled Syringe Red 500um-700um 20ml Embosphere - [id number] Implanted:Qty: 1 on 04/17/2021 at [facility] S620GH / / Microsphere Embolization Prefilled Syringe Red 500um-700um 20ml Embosphere - [id number] Implanted:Qty: 1 on 04/17/2021 at [facility] S620GH / / Microsphere Embolization Prefilled Syringe Green 700um-900um 20ml Embosphere - [id number] Implanted:Qty: 1 on 04/17/2021 at [facility] S820GH / / Microsphere Embolization Prefilled Syringe Green 700um-900um 20ml Embosphere - [id number] Implanted:Qty: 1 on 04/17/2021 at [facility] S820GH / / Procedures * Due to [place] state law, this organization might not be sharing negative HIV tests. Procedure Name Priority Date/Time Associated Diagnosis Comments TISSUE EXAM Routine 08/02/2024 2:50 PM EST Mucocele of appendix LA COLONOSCOPY FLX DX W/COLLJ SPEC WHEN PFRMD [...] to Health Maintenance Results * Due to [place] state law, this organization might not be sharing negative HIV tests. * Tissue Exam (08/02/2024 2:50 PM EST) Final Diagnosis Appendix Mass, Biopsy: - Superficial fragments of colonic mucosa, within normal limits, - No evidence of cystic structure, adenomatous change or mass. - Multiple levels were examined. [facility] MANUAL 08/05/2024 12:00 PM EST [facility] at 1200 EST Clinical History Pre-op diagnosis: Preopeartive assessment - no prior colonoscopy, has large appendiceal mucocele, request assessment of the remainder of the colon to ensure no synchronous pathology [facility] MANUAL 08/05/2024 12:00 PM EST [facility] Gross Description 1. Large Intestine, Appendix, APPENDIX MASS BIOPSY The specimen is received in formalin labeled appendix mass biopsy and consists of 0.6 x 0.3 x 0.1 cm of torres tissue fragments which are entirely submitted in cassette 1A. [facility] MANUAL 08/05/2024 12:00 PM EST [facility] Gross Description User Grossing complete by Louis Gray on 08/03/2024 12:02 PM [employer] MANUAL 08/05/2024 12:00 PM EST [facility] Embedded Images [facility] MANUAL 08/05/2024 12:00 PM EST [facility] Resulting Agency Case was signed out at [facility], Department of Pathology, [facility] CLIA [id number] [employer] MANUAL 08/05/2024 12:00 PM EST [facility] Report Header Surgical Pathology Report ? Case: [id number] ? Authorizing Provider: ??Gricel Pantoja MD ?Collected: ? 08/02/20241449 ? Ordering Location: ? [facility] ? Received: ?08/03/2024 1046 ? [facility] ? Endoscopy ? Pathologist: ? Matthew Meneses MD ? Specimen: ?Large Intestine, Appendix, APPENDIX MASS BIOPSY ? 08/05/2024 12:00 PM EST [facility] ProVation Case Yes [facility] MANUAL 08/05/2024 12:00 PM EST [facility] SURGICAL CSN Component [id number] [facility] MANUAL 08/05/2024 12:00 PM EST [facility] Tissue Appendix structure / Unknown 08/02/2024 2:50 PM EST 08/03/2024 10:46 AM EST Comment:Pre-op diagnosis: Preopeartive assessment - no prior colonoscopy, has large appendiceal mucocele, request assessment of the remainder of the colon to ensure no synchronous pathology Gricel Pantoja MD LAB PATHOLOGY/CYTOLOGY DARLENE JACOBS Final Result [facility] [address] [place] [address], * COLONOSCOPY (08/02/2024) Narrative Procedure Note Gricel Pantoja MD - 08/02/2024 2:22 PM EST [facility] Gastroenterology Patient Name: Beata White Procedure Date: 08/02/2024 2:22 PM Date of : 1980 Admit Type: Outpatient Age: 44 Room: [place] [address] Gender: Female Note Status: Finalized Attending MD: [...] concerns please do not hesitateto call the [facility]. Attending Participation: I personally performed the entire procedure. Gricel Pantoja MD 08/02/2024 3:05:41 PM This report has been signed electronically. Number of Addenda: 0 Note Initiated On: 08/02/2024 2:22 PM Gricel Pantoja MD [employer] PROCEDURES Final Result * CBC Auto Differential (07/26/2024 1:00 PM EST) WBC 7.1 3.8 - 10.8 10*3/uL 07/26/2024 1:18 PM EST [facility] RBC 4.19 3.80 - 5.10 10*6/uL 07/26/2024 1:18 PM EST [facility] Hemoglobin 12.6 11.7 - 15.5 g/dL 07/26/2024 1:18 PM EST [facility] Hematocrit 38.2 35.0 - 45.0 % 07/26/2024 1:18 PM EST [facility] MCV 91.2 80.0 - 100.0 fL 07/26/2024 1:18 PM EST [facility] MCH 30.1 27.0 - 33.0 pg 07/26/2024 1:18 PM EST [facility] MCHC 33.0 32.0 - [...] - 0.20 10*3/uL 07/26/2024 1:18 PM EST [facility] nRBC % 0.0 /100 WBCs 07/26/2024 1:18 PM EST [facility] nRBC # <0.01 <0.01 10*3/uL 07/26/2024 1:18 PM EST [facility] Total Neutrophil #, Preliminary 4.66 1.50 - 7.80 10*3/uL 07/26/2024 1:18 PM EST [facility] Blood Structure of peripheral vein / Unknown Venipuncture / Unknown 07/26/2024 1:00 PM EST 07/26/2024 1:14 PM EST David Recinos MD LAB BLOOD ORDERABLES Final Result Performing Organization Address City/[facility]/ZIP Co de Phone Number [facility] [address] [place] [address], * CA 19-9 (07/26/2024 1:00 PM EST) CA 19-9 15 <34 U/mL 07/28/2024 9:42 AM EST [facility] Comment: This test was performed using the Siemens chemiluminescent method. Values obtained from different assay methods cannot be used interchangeably. CA 19-9 levels, regardless of value, should not be interpreted as absolute evidence of the presence or absence of disease. Blood Structure of peripheral vein / Unknown Venipuncture / Unknown 07/26/2024 1:00 PM EST 07/26/2024 1:30 PM EST Narrative [facility] - 07/28/2024 9:42 AM EST [facility] Received Date:[id number] David Recinos MD LAB BLOOD ORDERABLES Final Result Performing Organization Address City/[facility]/ZIP Co de Phone Number DEVONTE [address] 3rd Floor, [place] [address], [place] [phone] [facility] [address] [facility] 3rd [facility], [place] [address], * CA 125 (07/26/2024 1:00 PM EST) CA 125 10 <35 U/mL 07/27/2024 8:46 AM EST [facility] Comment: This test was performed using the Siemens Chemiluminescent method. Values obtained from different assay methods cannot be used interchangeably. CA 125 levels, regardless of value, should not be interpreted as absolute evidence of the presence or absence of disease. Blood Structure of peripheral vein / Unknown Venipuncture / Unknown 07/26/2024 1:00 PM EST 07/26/2024 1:29 PM EST Narrative [facility] - 07/27/2024 8:46 AM EST [facility] Received Date: us David Recinos MD LAB BLOOD ORDERABLES Final Result [facility] [address] [facility] [address] [facility], [place] [address], [place] [phone] [facility] [address], [place] [address], * Phosphorus (07/26/2024 1:00 PM EST) Pathologist [facility] Phosphorus 3.3 2.5 - 4.5 mg/dL 07/26/2024 2:24 PM EST [facility] Blood Structure of peripheral vein / Unknown Venipuncture / Unknown 07/26/2024 1:00 PM EST 07/26/2024 1:14 PM EST us David Recinos MD LAB BLOOD ORDERABLES Final Result [facility] [address] [place] [address], [place] * Magnesium (07/26/2024 1:00 PM EST) MG 2.0 1.6 - 2.4 mg/dL 07/26/2024 2:24 PM EST [facility] Blood Structure of peripheral vein / Unknown Venipuncture / Unknown 07/26/2024 1:00 PM EST 07/26/2024 1:14 PM EST David Recinos MD LAB BLOOD ORDERABLES Final Result Performing Organization Address City/[facility]/ZIP Co de Phone Number [facility] [address] [place] [address], * CEA (07/26/2024 1:00 PM EST) Pathologist [facility] CEA <0.6 <=3.7 ng/mL 07/26/2024 2:25 PM EST [facility] Comment: Smokers Reference Range: ?? <5.5 ng/mL This test was performed using Arian electrochemiluminescence immunoassay method. Values obtained by different assay methods cannot be used interchangeably. Blood Structure of peripheral vein / Unknown Venipuncture / Unknown 07/26/2024 1:00 PM EST 07/26/2024 1:14 PM EST David Recinos MD LAB BLOOD ORDERABLES Final Result Performing Organization Address City/[facility]/ZIP Co de Phone Number [facility] [address] [place] [address], [place] * Comprehensive metabolic panel (07/26/2024 1:00 PM EST) Pathologist [facility] NA 140 135 - 145 mmol/L 07/26/2024 2:24 PM EST [facility] K 4.2 3.5 - 5.3 mmol/L 07/26/2024 2:24 PM EST [facility] Cl 103 98 - 107 mmol/L 07/26/2024 2:24 PM EST [facility] CO2 27 22 - 32 mmol/L 07/26/2024 2:24 PM EST [facility] Anion Gap 10 5 - 15 07/26/2024 2:24 PM EST [facility] Glucose 88 65 - 99 mg/dL 07/26/2024 2:24 PM EST [facility] Creatinine 0.77 0.50 - 1.20 mg/dL 07/26/2024 2:24 PM EST [facility] Calcium 9.5 8.6 - 10.5 mg/dL 07/26/2024 2:24 PM EST [facility] Total Protein 6.9 6.0 - 8.0 g/dL 07/26/2024 2:24 PM EST [facility] Albumin 4.3 3.5 - 5.2 g/dL 07/26/2024 2:24 PM EST [facility] Bilirubin, Total 0.3 0.2 - 1.2 mg/dL 07/26/2024 2:24 PM EST [facility] Alkaline Phosphatase 69 35 - 129 U/L 07/26/2024 2:24 PM EST [facility] AST 22 10 - 40 U/L 07/26/2024 2:24 PM EST [facility] ALT 28 10 - 40 U/L 07/26/2024 2:24 PM EST [facility] BUN 12 7 - 23 mg/dL 07/26/2024 2:24 PM EST [facility] eGFR >90 >=60 mL/min/1. 73m2 07/26/2024 2:24 PM EST [facility] Comment:The estimated glomer ular [...] - 4.2 g/dL 07/26/2024 2:24 PM EST [facility] A/G Ratio 1.7 1.5 - 3.0 07/26/2024 2:24 PM EST [facility] Blood Structure of peripheral vein / Unknown Venipuncture / Unknown 07/26/2024 1:00 PM EST 07/26/2024 1:14 PM EST us David Recinos MD LAB BLOOD ORDERABLES Final Result [facility] [address] [place] [address], [place] * CT Abdomen Pelvis W Contrast [...] the ordering or responsible provider via the [employer] [employer] system on 07/12/2024 2:54 PM. ??Receipt of this communication by the responsible provider will be documented in [facility] [employer] upon receiving acknowledgement if applicable, Message ID [id number]. If this radiology report contains a blank impression section, it is an incomplete radiology report. ??Please contact the interpreting radiologist or applicable radiology division as soon as possible to obtain the completed interpretation. ? Workstation ID: [id number] Up-to-date CT equipment and radiation dose reduction [...] osseous lesion is identified. Resulting Agency Comment [id number] Audrey Orozco MD [facility] CT PROCEDURES Edited Result - Final * Pap (12/27/2020 9:23 AM EDT) Specimen Adequacy Satisfactory for evaluation, endocervical/cool sformation zone component absent [facility] MAN[facility] 1 2:16 PM EDT [facility] Pathologist Cytology Interpretation Negative for intraepithelial lesion or malignancy. [facility] MANUAL 1 2:16 PM EDT [facility] at 1416 EDT Comment:This is the result o f a morphological screening test with an inherent possibility of a false negative interpretation. Knit Tubing Dyer Statement This Pap test was examined by the [employer] [facility], [employer], [place], [place]. This Pap test was examined in accordance with the [facility] Cytopathology Laboratory written policy, which incorporates all CLIA mandates. Screening guidelines can be found in Am J Clin Pathol 2012;137:516-542. We endorse the practice guidelines developed by ASCCP and published in the Journal Lower Genital Tract Disease 17(5):S1-S27 (2013). [facility] MANUAL 1 2:16 PM EDT [facility] Clinical History screening [facility] MANUAL 1 2:16 PM EDT [facility] Resulting Agency Case was signed out at [facility], Department of Pathology, [employer] CLIA [id number] [facility] MANUAL 1 2:16 PM EDT [facility] Report Header Gynecologic Cytology Report ? Case: [id number] ? Authorizing Provider: ??Jessy Velasquez ?Collected: ? 12/27/2020 0923 ? Ordering Location: ? [facility] ? Received: ?12/27/2020 1034 ? [place] ? Obstetrics and Gynecology ? First Screen: ?Ozzie Huizar ? Specimen: ?Screening ThinPrep Pap, Cervix/Endocervix ? 2:16 PM EDT [facility] Brushing Cervix uteri structure / Unknown Non-Blood Collection / Unknown 12/27/2020 9:23 AM EDT 12/27/2020 10:34 AM EDT Jessy Velasquez MD LAB PATHOLOGY/CYTOLOGY ORDERA BLE Final Result Performing Organization Address [facility]/State/ZIP Co de Phone Number [facility] [employer] [facility]: [place]) [facility]OLOG[facility] LABORATORY [address] [place] [address], from Last 3 Months or Most Recently Relevant to Health Maintenance Insurance [facility] HMO/POS . [address] [place] [address] [facility] H[facility]/POS Advance Directives * Full Code (Latest Code Status on File) Date Activated Date Inactivated Comments 08/04/2022 8:30 AM 08/04/2022 9:04 PM Healthcare Agents on File Name Relationship Healthcare Agent Relationshi p Communication Issa Paredes Other Alternate Health Care Agent Jorge [facility] Health Care Agent Care Teams Measurement Department Chief Clerk Relationship Specialty Start Date End Date Ron Escobar NP [address] [place] [address] PCP - General 11/24/23
--- OUTSIDE RECORDS SUMMARY | 2024-08-12 10:58 | XMS_ITS | Encounter Summary ---
Author Organization [facility] Address [address] [place] [address] Care Team Providers Care Senior Advisor Name Role Phone Ron Escobar NP Primary Care Provider +1- [phone] Reason for Visit * Auth/Cert (Routine) Specialty Diagnoses / Procedures Referred By Urmila cuevas Referred To Contact Diagnoses Mucocele of appendix Preopeartive assessment - no prior colonoscopy, has large appendiceal mucocele, request assessment of the remainder of the colon to ensure no synchronous pathology Procedures FL COLONOSCOPY FLX DX W/COLLJ SPEC WHEN PFRMD Colonoscopy, Diagnostic, with Possible Moderate Sedation David Recinos MD [address] [place] [address] Phone: tel: fax: Gricel Pantoja MD [address] [place] [address] Phone: tel: fax: Referral ID Status Reason Start Date Expiration Date Visits Re quested Visits Authorized [id number] 07/29/2024 99 99 Encounter Details Date Type Department Care Team (Late st Contact Info) Description 08/02/2024 2:15 PM EST - 08/02/2024 2:50 PM EST Surgery [facility] Endoscopy [address] [place] [address] Gricel Pantoja MD [address] [place], [place] [id number] Colonoscopy, Diagnostic, with Possible Moderate Sedation [52250 (CPT??)] Social History Tobacco Use Types Packs/Day Years [...] 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 The indication for the procedure is preop [...] BACK SURGERY Jun 2021 CERVIX SURGERY LEEP FL CYSTOURETHROSCOPY N/A 08/04/2022 Procedure: CYSTOURETHROSCOPY; Surgeon: Audrey Orozco MD; Location: [facility] OR; Service: Gynecology FL HYSTEROSCOPY,RMV FB N/A 08/04/2022 Procedure: SURGICAL HYSTEROSCOPY WITH REMOVAL OF IUD; Surgeon: Audrey Orozco MD; Location: [facility] OR; Service: Gynecology FL LAPAROSCOPY TOT HYSTERECTOMY UTERUS >250 GRAM W TUBE/OVARY N/A 08/04/2022 Procedure: ROBOTIC TOTAL HYSTERECTOMY,LARGE UTERUS,WITH REMOVAL OF TUBES ,CONTAINED EXTRACTION, IUDREMOVAL; Surgeon: Audrey Orozco MD; [place] [facility] [place]; Service: Gynecology Medications Prior to Admission [...] - 08/02/2024 2:22 PM ESTAssociated Order(s): COLONOSCOPY [facility] Gastroenterology Patient Name: Beata White Procedure Date: 08/02/2024 2:22 PM Date of : 1980 Admit Type: Outpatient Age: 44 Room: [place] [address] Gender: Female Note Status: Finalized Attending MD: [...] please do not hesitate to call the [facility]. Attending Participation: I personally performed the entire procedure. Gricel Pantoja MD 08/02/2024 3:05:41 PM This report has been signed electronically. Number of Addenda: 0 Note Initiated On: 08/02/2024 2:22 PM documented in this encounter Plan of Treatment Upcoming Encounters Date Type Department Care Team (Latest Contact Info) Description 08/15/2024 10:00 AM EDT Appointment [facility] [address] [facility] 3rd [place] [address] 08/17/2024 8:15 AM EDT Hospital Encounter [facility] Operating Room [address] [place] [address] David Recinos MD [address] [place] [address] 08/17/2024 8:15 AM EDT - 08/17/2024 10:55 AM EDT Surgery [facility] Operating Room [address] [place] [address] David Recinos MD [address] [place] [address] ROBOTIC APPENDECTOMY [79111 (CPT??)] Scheduled Procedures Name Priority Associated Diagnoses [...] 08/02/2024 2:50 PM EST Mucocele of appendix FL COLONOSCOPY FLX DX W/COLLJ SPEC WHEN PFRMD [...] or mass. - Multiple levels were examined. [facility] MANUAL 08/05/2024 12:00 PM EST [facility] at 1200 EST Clinical History Pre-op diagnosis: Preopeartive assessment - no prior colonoscopy, has large appendiceal mucocele, request assessment of the remainder of the colon to ensure no synchronous pathology [facility] MANUAL 08/05/2024 12:00 PM EST [facility] Gross Description 1. Large Intestine, Appendix, APPENDIX MASS BIOPSY The specimen is received in formalin labeled appendix mass biopsy and consists of 0.6 x 0.3 x 0.1 cm of torres tissue fragments which are entirely submitted in cassette 1A. [facility] MANUAL 08/05/2024 12:00 PM EST [facility] Gross Description User Grossing complete by Louis Gray on 08/03/2024 12:02 PM [facility] MANUAL 08/05/2024 12:00 PM EST [facility] Embedded Images [facility] MANUAL 08/05/2024 12:00 PM EST [facility] Resulting Agency Case was signed out at [facility], Department of Pathology, [facility] CLIA [id number] [facility] MANUAL 08/05/2024 12:00 PM EST [facility] Report Header Surgical Pathology Report ? Case: [id number] ? Authorizing Provider: ??Gricel Pantoja MD ?Collected: ? 08/02/2024 1450 ? Ordering Location: ? [facility] ? Received: ?08/03/2024 1046 ? [place] ? Endoscopy ? Pathologist: ? Matthew Meneses MD ? Specimen: ?Large Intestine, Appendix, APPENDIX MASS BIOPSY ? 08/05/2024 12:00 PM EST [facility] ProVation Case Yes [facility] MANUAL 08/05/2024 12:00 PM EST [facility] SURGICAL CSN Component [id number] [facility] MANUAL 08/05/2024 12:00 PM EST [facility] Tissue Appendix structure / Unknown 08/02/2024 2:50 PM EST 08/03/2024 10:46 AM EST Comment:Pre-op diagnosis: Preopeartive assessment - no prior colonoscopy, has large appendiceal mucocele, request assessment of the remainder of the colon to ensure no synchronous pathology Result [facility] Gricel Pantoja MD LAB PATHOLOGY/CYTOLOGY DARLENE JACOBS Final Result [facility] [address] [place] [address], [place] * COLONOSCOPY (08/02/2024) Narrative Procedure Note Gricel Pantoja MD - 08/02/2024 2:22 PM EST [facility] Gastroenterology Patient Name: Beata White Procedure Date: 08/02/2024 2:22 PM Date of : 1980 Admit Type: Outpatient Age: 44 Room: [place] [address] Gender: Female Note Status: Finalized Attending MD: [...] concerns please do not hesitateto call the [facility]. Attending Participation: I personally [...] (GI) documented in this encounter Care Teams Senior Advisor Relationship Specialty Start Date End Date Ron Escobar NP [address] [place] [address] PCP - General 11/24/23 documented as of this encounter
--- OUTSIDE RECORDS SUMMARY | 2024-08-12 10:58 | XMS_ITS | Encounter Summary ---
Author Organization [facility] Address [address] [place] [address] Care Team Providers Care Hardware Supplies Sales Representative Name Role Phone Ron Escobar NP Primary Care Provider +1- [phone] Encounter Details Date Type Department Care Team (Latest Contact Info) Description 03/13/2021 Orders Only [facility] Interventional Radiology [address] [place] [address] Yessenia Garcia PA [address] [place] [address] [place] [address] Intramural and submucous leiomyoma of uterus (Primary Dx); Pre-procedure lab exam; Status post embolization of uterine artery; Encounter for preprocedural laboratory examination Social History Tobacco Use Types Packs/Day Years [...] Info) Description 08/15/2024 10:00 AM EDT Appointment [facility] [address] [place] [address] [address] [place] [address] 08/17/2024 8:15 AM EDT Hospital Encounter [facility] Operating Room [address] [place] [address] David Recinos MD [address] [place] [address] 08/17/2024 8:15 AM EDT - 08/17/2024 10:55 AM EDT Surgery [facility] Operating Room [address] [place] [address] David Recinos MD [address] [place] [phone] ROBOTIC APPENDECTOMY [83678 (CPT??)] Scheduled Procedures Name Priority Associated Diagnoses Date/Ti me ROBOTIC APPENDECTOMY Mucocele of appendix 08/17/2024 8:15 AM EDT REPAIR UMBILICAL HERNIA, INCARCERATED Mucocele of appendix 08/17/2024 8:15 AM EDT documented as of this encounter Visit Diagnoses Diagnosis Intramural and submucous leiomyoma of uterus- Primary Pre-procedure lab exam Pre-procedural laboratory examination Status post embolization of uterine artery Encounter for preprocedural laboratory examination Mucocele of appendix Other and unspecified diseases of appendix documented in this encounter Care Teams Hardware Supplies Sales Representative Relationship Specialty Start Date End Date Ron Escobar NP [address] [place] [address] PCP - General 11/24/23 documented as of this encounter
--- OUTSIDE RECORDS SUMMARY | 2024-08-12 10:58 | XMS_ITS ---
Author Organization [facility] Address [address] [place] [address] Care Team Providers Care Saddle And Harness Maker Name Role Phone LUIS FERNANDO Gregorio Primary Care Provider Unava Tino Brewer Unavailable [phone] REASON FOR VISIT L5-S1 MIS TLIF- Red Status/Ext Outpatient Encounters Encounter Location Date Provider Diagnosis [facility] Outpatient [address] [place] [address] 07/26/2024 Tino Villeda Plan Of Treatment No Information Progress Notes * Beata WHITEDOB:1980 (44 yo F)Acc No.[id number]:07/26/2024 UNLOCKED PROGRESS NOTE Progress Note Patient:Beata STEVENSON Provider:?Tino Villeda PA-C :1980???Age:44 Y???Sex:Female D ate:07/26/2024 Address:[address] [place] [address], [address], [phone] Pcp:LUIS FERNANDO Gregorio Subjective: * Chief Complaints: * ???1. L5-S1 MIS TLIF- Red St atus/Ext Outpatient. * Medical History:? Objective: * Vitals:? Assessment: Plan: * Treatment: * * The named appointment provid er may or may not be the originator of this progress note, and it is not deemed complete until electronically signed by the appointment provider. Sign off status: Pending * Provider:?Tino Villeda PA-C Date:? 07/26/2024 Generated for Henri mosquera/Tena/Solomon on:?08/12/2024 10:57 AM EDT
--- OUTSIDE RECORDS SUMMARY | 2024-08-12 10:58 | XMS_ITS | Encounter Summary ---
Author Organization [facility] Address [address] [place] [address] Care Team Providers Care Dancing Instructor Name Role Phone Ron Escobar NP Primary Care Provider +1- [phone] Encounter Details Date Type Department Care Team (Late st Contact Info) Description 04/22/2021 Telephone [facility] Interventional Radiology [address] [place] [address] [phone] Yessenia Garcia PA [address] [place] [address] Interventional Radiology [place], [place] [phone] Social History Tobacco Use Types Packs/Day Years Used Date Smoking Tobacco: Former Cigarettes Smokeless Tobacco: Never Alcohol Use Standard Drinks/Week Comments Yes 1 (1 standard drink = 0.6 oz pur e alcohol) Education Answer Date Recorded What is the [...] encounter Miscellaneous Notes * Telephone Encounter - SARAH Toribio - 04/22/2021 10:57 AM EST Patient called reporting excruciating back pain after undergoing uterine artery embolization. SHe does have a history of spinal stenosis and back pain at a baseline. She did have some blood in the urine prior to discharge but she reports this is resolved. She is having scant vaginal bleeding and ispassing small pieces of tissue. She denies discharge or fever. She has stopped taking the oxycodone. Reports taking naproxen, diclofenac, and acetaminophen. She is not moving her bowels regularly though she is passing gas. She reported documented in this encounter Plan of Treatment Upcoming Encounters Date Type Department Care Team (Latest Contact Info) Description 08/15/2024 10:00 AM EDT Appointment [facility] Surgical Center [address] [place] [address] [address] [place] [address] 08/17/2024 8:15 AM EDT Hospital Encounter [facility] Operating Room [address] [place] [address] David Recinos MD [address] [place] [address] 08/17/2024 8:15 AM EDT - 08/17/2024 10:55 AM EDT Surgery [facility] Operating Room [address] [place] [address] David Recinos MD [address] [place] [address] ROBOTIC APPENDECTOMY [10013 (CPT??)] Scheduled Procedures Name Priority Associated Diagnoses Date/Ti ks ROBOTIC APPENDECTOMY Mucocele of appendix 08/17/2024 8:15 AM EDT REPAIR UMBILICAL HERNIA, INCARCERATED Mucocele of appendix 08/17/2024 8:15 AM EDT documented as of this encounter Visit Diagnoses Not on filedocumented in this encounter Care Teams Dancing Instructor Relationship Specialty Start Date End Date Ron Escobar NP [address] [facility] [place] [address] PCP - General 11/24/23 documented as of this encounter
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
--- OUTSIDE RECORDS SUMMARY | 2024-08-12 10:58 | XMS_ITS | Clinical Summary ---
Author Organization [facility] Address [address] [place] [address] Phone Care Team Providers Care Leather Goods I Assembler Name Role Phone Unavailable Unavailable Conditions or Problems No information available. Medications No information available. Medications Administered No information available. Allergies, Adverse Reactions, Alerts No information available. Results No information available. Plan of Care No information available. Procedures No information available. Vital Signs No information available. Immunizations No information available. Advance Directives No information available.
--- OUTSIDE RECORDS SUMMARY | 2024-08-12 10:58 | XMS_ITS ---
Author Organization [facility] Address [address] [place] [address] Care Team Providers Care Wireless Sales Representative Name Role Phone LUIS FERNANDO Gregorio Primary Care Provider Fredy Alfaro Unavailable [phone] REASON FOR VISIT L5-S1 MIS TLIF- Red Status/Ext Outpatient Encounters Encounter Location Date Provider Diagnosis [facility] [address] [place] [address] 07/26/2024 Fredy Allison Plan Of Treatment No Information Progress Notes * Beata WHITEDOB:1980 (44 yo F)Acc No.[id number]:07/26/2024 UNLOCKED PROGRESS NOTE Progress Note Patient:Beata STEVENSON Provider:?Fredy Allison MD :1980???Age:44 Y???Sex:Female D ate:07/26/2024 Address:[address] [place] [address] [address], [place] [phone] Pcp:LUIS FERNANDO Gregorio Subjective: * Chief Complaints: * ???1. L5-S1 MIS TLIF- Red St atus/Ext Outpatient. * Medical History:? Objective: * Vitals:? Assessment: Plan: * Treatment: * * The named appointment provid er may or may not be the originator of this progress note, and it is not deemed complete until electronically signed by the appointment provider. Sign off status: Pending * Provider:Priscilla Allison MD Date:? 07/26/2024 Generated for Henri mosquera/Tena/Solomon on:?08/12/2024 10:58 AM EDT
== END 2024-08-12 10:55 | disposition home or self-care (01) ==
LOC: HO.HNS 09:48
PROVIDERS: Visit Provider Neurological Surgery
DX: M51.370 Other intervertebral disc degeneration, lumbosacral region with discogenic back pain only (principal)
CPT/HCPCS: 99204